=== PATIENT | female | born 1990 | race Caucasian/White ===

== ENCOUNTER 2016-06-19 03:56 | Emergency (ER) | payer BC ==
[~2016-06-19] VITALS: Ht 162.6 cm; Wt 112.0 kg
[~2016-06-19 03:56] MED LIST: ATV/1 PO; BCPILLS PO; LAMO150T32 PO; QUET1TAB32 PO; VALA500T39 PO; VNTHFA/IN INH
[2016-06-19 04:05] VITALS: TEMP 37.1; Ht 162.6 cm; Wt 112.0 kg
[2016-06-19] MEDS ORDERED: LITH600C PO (04:45)
[2016-06-19 04:51] LABS: BASO % 0.2 %; BASO ABS # 0.02 K/uL (0-0.2); COMPLETE YES; EOS % 2.2 %; HEMATOCRIT 37.2 % (37-47); IG% 0.3 %; LYMPH % 30.8 %; LYMPH ABS # 3.48 K/uL (1.2-3.4); MEAN CELL VOLUME 90.1 fL (80-100); MEAN CORPUSCULAR HEMOGLOBIN 30.8 pg (25-34); MEAN CORPUSCULAR HGB CONC 34.1 g/dl (32-36); MEAN PLATELET VOLUME 8.9 fL (7.4-10.4); MONO % 4.7 %; NEUT % 61.8 %; PLATELET COUNT 248 K/uL (130-400); RED BLOOD COUNT 4.13 M/uL (4.2-5.4); WHITE BLOOD COUNT 11.29 K/uL (4.8-10.8)
[2016-06-19 05:09] LABS: ALT/SGPT 19 U/L (12-78); AST/SGOT 9 U/L (15-37); BLOOD UREA NITROGEN 11 mg/dl (7-18); BUN/CREATININE RATIO 14.7 (10-20); CALCIUM 8.9 mg/dl (8.5-10.1); CARBON DIOXIDE 24 mmol/L (21-32); CHLORIDE 112 mmol/L (98-107); CREATININE 0.77 mg/dl (0.60-1.20); GLUCOSE 104 mg/dl (70-99); POTASSIUM 3.7 mmol/L (3.5-5.1); SODIUM 142 mmol/L (136-145)
[2016-06-19 05:12] LABS: ALKALINE PHOSPHATASE 61 U/L (45-117)
[2016-06-19 05:17] LABS: URINE APPEARANCE CLEAR (CLEAR); URINE BILIRUBIN NEG (NEG); URINE COLOR YELLOW; URINE EPITHELIAL CELL AUTO >30 /lpf (0-5); URINE NITRITE NEG (NEG); URINE SPECIFIC GRAVITY 1.006 (1.000-1.030); UROBILINOGEN NEG (NEG)
[2016-06-19 05:22] LABS: MANUAL MICROSCOPIC REQUIRED? NO; REVIEW REQ? NO
--- NOTE | 2016-06-19 05:51 | EMERGENCY ROOM VISIT NOTE ---
History Report prepared by Delroy: Vadim Haji Under the Supervision of: Dr. Jack Bee M.D. First contact with patient: 04:12 Chief Complaint: ABDOMINAL PAIN Stated Complaint: SEVERE ABDOMINAL PAIN Nursing Triage Summary: Bilateral lower abdominal pain for a few days, tonight 8/10 intense pain. Denies n/v/d History of Present Illness The patient is a 26 year old female who presents to the Emergency Room with complaints of persistent abdominal pain beginning about 2 days ago. She notes her pain woke her up about 20 minutes ago and was severe and stabbing. She describes her pain from the past 2 days ago pressure. She rates her pain an 8/ 10 in severity. She denies having any nausea, vomiting, diarrhea or vaginal spotting or discharge, but admits to some pain on urination. She notes that lying flat down worsens her pain. The patient reports that she still has her gallbladder and appendix. Her last known menstrual period was 8 days ago. She is on control and denies any chance of . She is on lithium and last had her levels checked 2 weeks ago. She is worried about a possible UTI, but denies any past history of UTI. Source of History: patient Onset: 2 days ago Position: abdomen Symptom Intensity: 8/10 in severity Quality: pressure, stabbing Timing: other (persistent) Modifying Factors (Worsening): other (lying flat down) Associated Symptoms: + urinary symptoms (pain on urination), No diarrhea, No nausea, No vomiting Note: The patient denies vaginal spotting or discharge. Review of Systems See HPI for pertinent positives & negatives. A total of 10 systems reviewed and were otherwise negative. Past Medical & Surgical Medical Problems: (1) Anxiety (2) Asthma Family History No significant family history Social History Smoking Status: Never Smoker Occupation Status: employed Current/Historical Medications Scheduled Control Pills ( Control Pills), 1 TAB PO DAILY [place] Carbonate ([place]a Carbonate), 1,800 MG PO DAILY Valacyclovir Hcl (Valtrex), 1,000 MG PO DAILY Scheduled PRN Lorazepam (Ativan), 1 MG PO Q6H PRN for Anxiety Allergies Coded Allergies: No Known Allergies (Unverified , 12/08/14) Physical Exam Vital Signs Date Time Temp Pulse Resp B/P Pulse Ox O2 Delivery O2 Flow Rate FiO2 06/19/16 06:53 88 16 117/54 98 06/19/16 06:04 75 20 118/62 98 Room Air 06/19/16 04:05 37.1 93 16 158/94 99 Room Air Physical Exam GENERAL: Patient is a healthy-appearing well-nourished HEAD: Normocephalic atraumatic EYES: Ocular movements intact pupils equal and react to light OROPHARYNX mucous membranes are moist no exudates present no erythema or edema present NECK: Supple no nuchal rigidity CHEST: Good equal expansion LUNGS: Clear and equal to auscultation CARDIAC: Normal S1 and S2 ABDOMEN: Soft; tender to the left lower quadrant; no guarding BACK: No CVA tenderness EXTREMITIES: No pain upon palpation normal muscle strength in all groups no clubbing cyanosis or edema NEURO: Patient is following commands is answering questions appropriately. Alert and oriented x3 Cranial Nerves 2-12 grossly intact Medical Decision & Procedures ER Provider Diagnostic Interpretation: US results as stated below per my review and radiologist interpretation: US PELVIC/ENDOVAG: test reported to be negative. Endometrial complex is normal measuring 4 mm. Blood flow seen to both ovaries, Complex 3.6 cm mass involving the left ovary has an appearance most suggestive of a hemorrhagic cyst at this time. Consider followup in 8 weeks to document stability. Small amount of anechoic free fluid in the pelvic cul-de-sac and right adnexa is nonspecific but could be due to prior cyst rupture or cyst leakage. No other abnormalities. Radiologist: Royal Martinez M.D. Laboratory Results 06/19/16 04:35 Red Blood Count 4.13, Mean Corpuscular Volume 90.1, Mean Corpuscular Hemoglobin 30.8, Mean Corpuscular Hemoglobin Concent 34.1, Mean Platelet Volume 8.9, Neutrophils (%) (Auto) 61.8, Lymphocytes (%) (Auto) 30.8, Monocytes (%) (Auto) 4.7, Eosinophils (%) (Auto) 2.2, Basophils (%) (Auto) 0.2, Neutrophils # (Auto) 6.98, Lymphocytes # (Auto) 3.48, Monocytes # (Auto) 0.53, Eosinophils # (Auto) 0.25, Basophils # (Auto) 0.02 06/19/16 04:35 Test 06/19/16 04:35 White Blood Count 11.29 K/uL (4.8-10.8) Red Blood Count 4.13 M/uL (4.2-5.4) Hemoglobin 12.7 g/dL (12.0-16.0) Hematocrit 37.2 % (37-47) Mean Corpuscular Volume 90.1 fL (80-100) Mean Corpuscular Hemoglobin 30.8 pg (25-34) Mean Corpuscular Hemoglobin Concent 34.1 g/dl (32-36) Platelet Count 248 K/uL (130-400) Mean Platelet Volume 8.9 fL (7.4-10.4) Neutrophils (%) (Auto) 61.8 % Lymphocytes (%) (Auto) 30.8 % Monocytes (%) (Auto) 4.7 % Eosinophils (%) (Auto) 2.2 % Basophils (%) (Auto) 0.2 % Neutrophils # (Auto) 6.98 K/uL (1.4-6.5) Lymphocytes # (Auto) 3.48 K/uL (1.2-3.4) Monocytes # (Auto) 0.53 K/uL (0.11-0.59) Eosinophils # (Auto) 0.25 K/uL (0-0.5) Basophils # (Auto) 0.02 K/uL (0-0.2) RDW Standard Deviation 43.8 fL (36.4-46.3) RDW Coefficient of Variation 13.2 % (11.5-14.5) Immature Granulocyte % (Auto) 0.3 % Immature Granulocyte # (Auto) 0.03 K/uL (0.00-0.02) Urine Color YELLOW Urine Appearance CLEAR (CLEAR) Urine pH 8.0 (4.5-7.5) Urine Specific [place] 1.006 (1.000-1.030) Urine Protein NEG (NEG) Urine Glucose (UA) NEG (NEG) Urine Ketones NEG (NEG) Urine Occult Blood NEG (NEG) Urine Nitrite NEG (NEG) Urine Bilirubin NEG (NEG) Urine Urobilinogen NEG (NEG) Urine Leukocyte Esterase TRACE (NEG) Urine WBC (Auto) 1-5 /hpf (0-5) Urine RBC (Auto) 0-4 /hpf (0-4) Urine Hyaline Casts (Auto) 0 /lpf (0-5) Urine Epithelial Cells (Auto) >30 /lpf (0-5) Urine Bacteria (Auto) NEG (NEG) Urine Test NEG (NEG) Anion Gap 6.0 mmol/L (3-11) Est Creatinine Clear Calc Drug Dose 135.7 ml/min Estimated GFR () 123.5 Estimated GFR (Non- 106.6 BUN/Creatinine Ratio 14.7 (10-20) Calcium Level 8.9 mg/dl (8.5-10.1) Total Bilirubin 0.2 mg/dl (0.2-1) Direct Bilirubin < 0.1 mg/dl (0-0.2) Aspartate Amino Transf (AST/SGOT) 9 U/L (15-37) Alanine Aminotransferase (ALT/SGPT) 19 U/L (12-78) Alkaline Phosphatase 61 U/L (45-117) Total Protein 6.5 gm/dl (6.4-8.2) Albumin 3.2 gm/dl (3.4-5.0) Lipase 113 U/L (73-393) [place] Level 1.1 mMOL/L (0.6-1.2) Labs reviewed by ED physician. ED Course 0452: Past medical records reviewed. The patient was evaluated in room B5. A complete history and physical examination was performed. 0640: Upon reexamination the patient is hemodynamically stable. I discussed results and treatment plan with the patient. She verbalizes agreement and understanding. The patient is ready for discharge. Medical Decision Differential diagnosis: Etiologies such as appendicitis, diverticulitis, PUD, biliary pathology, UTI, pancreatitis, obstruction, mesenteric ischemia, aortic pathology, infections, inflammatory bowel disease, renal colic, as well as others were entertained. This is a 26-year-old female who presents emergency Department with sudden sharp stabbing pain to the left lower quadrant. The patient has a negative test. Based on the patient's story I was suspicious of an ovarian cyst. This was confirmed on ultrasound. The patient does not have any evidence of infection in her urine. Serial abdominal examinations were performed on the patient in the emergency department and at no time did the patient exhibit a surgical abdomen. I felt that the patient was stable enough to be discharged home as her hemoglobin is normal. However I strongly cautioned her to return if she develops severe weakness or severe belly pain. Patient is going to follow-up with OB and was in agreement with treatment plan. Impression Primary Impression: Abdominal pain, left lower quadrant Additional Impression: Ruptured ovarian cyst Scribe Attestation The scribe's documentation has been prepared under my direction and personally reviewed by me in its entirety. I confirm that the note above accurately reflects all work, treatment, procedures, and medical decision making performed by me. Departure Information Dispostion Home / Self-Care Referrals Fariba Oliver DO (PCP) Patient Instructions ED Cyst Ovarian, My [facility] Additional Instructions Follow up with Dr Alvarez's office You have been examined and treated today on an emergency basis only. This is not a substitute for, or an effort to provide, complete comprehensive medical care. It is impossible to recognize and treat all injuries or illnesses in a single emergency department visit. It is therefore important that you follow up closely with DR Oliver. Call as soon as possible for an appointment. Thank you for your time and consideration. I look forward to speaking with you again soon. Please don't hesitate to call us if you have any questions. Problem Qualifiers
[2016-06-19 06:53] VITALS: BP 117/54; PULSE 88; O2SAT 98
--- NOTE | 2016-06-19 09:34 | DIAGNOSTIC IMAGING REPORT ---
ULTRASOUND OF THE PELVIS CLINICAL HISTORY: Right pelvic pain. COMPARISON STUDY: No priors. TECHNIQUE: Real-time, grayscale, and color flow sonography of the pelvis is performed both transabdominally and endovaginally. Images are reviewed in the transverse and longitudinal planes. FINDINGS: Uterus: The uterus is normal in size and echotexture, measuring 6.3 x 2.6 x 4.5 cm. A small Nabothian cyst is incidentally noted in the cervix. Endometrium: The endometrium is normal in appearance, and the endometrial stripe is normal in thickness measuring up to 0.4 cm. Ovaries: The ovaries are normal in size and morphology. The right ovary measures 3.5 x 2.6 x 1.9 cm and the left ovary measures 4.7 x 2.9 x 4.0 cm. There is a complex nonvascular cyst in the left ovary measuring up to 3.6 cm typical in appearance for a hemorrhagic cyst. Additional follicles are seen bilaterally. Normal Doppler waveforms are shown within both ovaries. Pelvis: There is a small volume of free fluid in the cul-de-sac. No concerning adnexal lesion is seen. IMPRESSION: 1. There is a 3.6 cm complex cyst in the left ovary typical in appearance for a hemorrhagic cyst. There is no sonographic evidence of ovarian torsion at the time of examination. 2. There is a small volume of free fluid in the cul-de-sac, likely within physiologic limits or potentially related to follicle/cyst rupture. Electronically signed by: Lobo Caro M.D. 06/19/2016 9:32 AM Dictated Date/Time: 06/19/2016 9:29 AM
== END 2016-06-19 06:54 | disposition home or self-care (01) ==
LOC: C.EDB 03:59
DX: R10.32 Left lower quadrant pain (principal); N83.209 Unspecified ovarian cyst, unspecified side; J45.909 Unspecified asthma, uncomplicated; F41.9 Anxiety disorder, unspecified

== ENCOUNTER 2023-12-24 15:24 | Observation (INO) ==
[2023-12-24 16:09] LABS: Basophils # (auto) 0.03 K/uL (0.00-0.20); Basophils % (auto) 0.2 %; Eosinophils # (auto) 0.01 K/uL (0.00-0.50); Eosinophils % (auto) 0.1 %; Hematocrit (blood only) 40.2 % (37.0-47.0); Hemoglobin 13.3 g/dl (12.0-16.0); Immature Granulocytes # (auto) 0.06 K/uL (0.01-0.20); Immature Granulocytes % (auto) 0.4 %; Lymphocytes % (auto) 12.3 %; Mean Corpuscular Hemoglobin 27.8 pg (25.0-34.0); Mean Corpuscular Hgb Conc 33.1 g/dL (32.0-36.0); Mean Corpuscular Volume 83.9 fL (80.0-100.0); Mean Platelet Volume 8.7 fL (9.4-12.4); Monocytes # (auto) 0.53 K/uL (0.11-0.59); Monocytes % (auto) 3.4 %; Neutrophils # (auto) 12.94 K/uL (1.40-6.50); Neutrophils % (auto) 83.6 %; Platelet Count 340 K/uL (130-400); RDW Coefficient of Variation 13.9 % (11.5-14.5); Red Blood Count 4.79 M/uL (4.20-5.40); White Blood Count 15.47 K/ul (4.8-10.8)
[2023-12-24 16:16] LABS: Appearance Urine Cloudy (Clear); Bacteria Urine Automated 1+ (None Seen); Bilirubin Urine Negative (Negative); Blood Urine Negative (Negative); Cast Urine Automated 0-2 /lpf (0-2); Color Urine Yellow; Glucose Urine UA Negative (Negative); Ketones Urine 1+ (Negative); Leukocyte Esterase Urine 2+ (Negative); Nitrite Urine Negative (Negative); Protein Urine Trace (Negative); RBC Urine Automated 0-2 /hpf (0-2); Specific Gravity Urine 1.023 (1.000-1.030); Urobilinogen Urine Negative (Negative); pH Urine 5.5 (4.5-7.5)
[2023-12-24 16:23] LABS: Pregnancy Test, Serum Negative (Negative)
[2023-12-24 16:25] LABS: Albumin Globulin Ratio 1.2 (0.9-2); Albumin Level 4.2 gm/dl (3.4-5.0); BUN Creatinine Ratio 14.1 (10-20); Bilirubin,Total 0.5 mg/dl (0.2-1.0); Calcium 9.8 mg/dl (8.6-10.3); Creatinine Clr Calc Pharmacy 141.1 ml/min; Est GFR (African American) 115.8 ml/min; Est GFR (Non-African American) 99.9 ml/min; Globulin 3.6 gm/dl (2.5-4.0); Potassium 3.8 mmol/L (3.5-5.1); Total Protein 7.8 gm/dl (6.0-8.3)
[2023-12-24] MEDS: SODIUM CHLORIDE 0.9% 1,000 ML IV ONE (16:34)
[2023-12-24] MEDS: ONDANSETRON INJ 2 MG/ML 2 ML VIAL IV STA (16:34)
--- NOTE | 2023-12-24 17:16 | XRay Report ---
XR abdomen 2V w PA chest HISTORY: 33 years-old Female vomitting acute chest and abdominal pain COMPARISON: 12/23/2023 TECHNIQUE: PA view of the chest with erect and supine views of the abdomen FINDINGS: Cardiomediastinal and hilar silhouettes are within normal limits. No pneumothorax, pleural effusion o r airspace consolidation. Bones appear grossly intact. Nonobstructive bowel gas pattern without pneum operitoneum. Renal shadows are partially obscured by bowel gas. IMPRESSION: 1. No acute processes of the chest. 2. Nonobstructive bowel gas pattern without pneumoperitoneum. ACT 112: Negative or not required by law. The above report was generated using voice recognition software. It may contain grammatical, syntax o r spelling errors. Electronically signed by: Emerson Diane M.D. 12/24/2023 5:14 PM
[2023-12-24] MEDS: KETOROLAC TROMETHAMINE 15 MG/ML VIAL IV STA (17:28)
[2023-12-24] MEDS: METOCLOPRAMIDE HCL INJ 5 MG/ML 2 ML VIAL IV ONE (17:29)
[2023-12-24] MEDS: diphenhydrAMINE 50 MG/ML VIAL IV STA (17:29)
[2023-12-24] MEDS ORDERED: ALUMINUM/MAGNESIUM/SIMETH (MAALOX MAX) 30 ML UDC PO PRN (19:13)
--- NOTE | 2023-12-24 19:13 | History & Physical Report ---
Date of Service December 24, 2023 Assessment & Plan (1) Intractable nausea and vomiting: (2) Epigastric abdominal pain: (3) UTI (urinary tract infection): (4) Diabetes mellitus, type 2: (5) Elevated blood pressure reading: (6) Tobacco abuse: (7) Morbid obesity: (8) ALEX on CPAP: (9) Adrenal nodule: Plan 33-year-old female with history of morbid obesity, ALEX CPAP, diabetes mellitus type 2 on metformin, psoriasis, tobacco abuse, medical marijuana use who presented to ED with intractable nausea, vomiting and upper abdominal pain. Chest Abd xray- 1. No acute processes of the chest. 2. Nonobstructive bowel gas pattern without pneumoperitoneum. CT A/P 1. No bowel wall thickening or obstruction. 2. Normal appendix. 3. No hydronephrosis. 4. A 3.3 cm indeterminate right adrenal gland nodule. Follow-up nonemergent dedicated adrenal CT is recommended for further evaluation. RUQ US 1. Normal gallbladder. No gallstones 2. Hepatic steatosis. Intractable nausea and vomiting with upper epigastric pain/burning- concerning for acid peptic disease. Lipase negative. LFTs negative. CT abdomen pelvis yesterday along with with RUQ US was negative for acute pathology. Has heartburns requiring frequent medications. Prior EGD few years back only with some inflammation per patient. She failed po trial in ED and hence requires observation for supportive treatment. Check UDS. Will start on IVF, IV PPI bid, sucralfate, tums prn, iv zofran prn, clear liquid diet with plan to advance diet as tolerated. If still persistent symptoms, will need to consult GI for EGD. She states she is trying to change all her providers from [facility] to [facility]. UTI- Will start on rocephine pending clx results. DM-2- on metformin. Will hold. SSI prn. Was on ozempic but discontinued due to side effects. Elevated BP- no h/o HTN. Likely situational. Monitor. HLZ prn Tobacco abuse- smokes 1 ppd. Recommended quitting. Continue nicoderm patch Morbid obesity- DMI 51.4. States she continues to lose weight even after discontinuing ozempic. Will need to follow up with PCP/GI for further eval ALEX on CPAP at 13 cm H2O- will bring CPAP from home Adrenal nodule- incidental finding in CT. Follow up with PCP/endo as OP for further work up DVT ppx- sc lovenox Dispo- Observation on tele Time spent- 75 mins Updated at bedside History of Present Illness Chief Complaint: intractable N/V Primary Care Provider: Wu Gomez MD 33-year-old female with history of morbid obesity, ALEX CPAP, diabetes mellitus type 2 on metformin, psoriasis, tobacco abuse, medical marijuana use who presented to ED with intractable nausea, vomiting and upper abdominal pain. 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 Shortly after waking up evening, she starting nausea and vomiting and was unable to tolerate anything down. It persisted and she came to the ED yesterday where workup including CT abdomen pelvis, right upper ultrasound, labs are unremarkable and she was discharged home, however she continues to have intractable nausea vomiting and unable to keep things down fluids and she presented back to the ED. in ED, she was given IV fluids, Zofran, Reglan, Toradol, Benadryl, However she failed p.o. challenge and hospitalist service was consulted for admission. during my encounter, states she was sitting comfortably in bed. Still nauseous. She states she has been having about daily vomiting about once per day for the past 5 weeks or so. She would also have heartburn and would require Tums and other [id number] medications on top of her PPI. she was on Ozempic for few weeks for diabetes and weight loss but she continues to have the symptoms along with weight loss despite stopping Ozempic in early October. She continues to smoke 1 pack/day. S he does not drink alcohol. She uses medical marijuana to help her sleep but denies any other drug abuse. States she had seen GI in the past and had EGD few years back with EGD which just showed mild inflammation nothing else. She denies fever chills, chest pain or shortness of breath dysuria. She alternates between constipation and diarrhea. She does however say that she had N/V few months back requiring ED presentation, she was given antibiotics for possible UTI and her symptoms were good for quite sometime. She is asking if her can bring her home CPAP. was at bedside. Allergies Allergy/AdvReac Type Severity Reaction Status Date / Time No Known Allergies Allergy Verified 12/24/23 18:35 Home Medications Medication Instructions Recorded Confirmed Type aripiprazole 10 mg tablet (Abilify) 10 mg PO QPM 01/15/21 01/23/21 History drospirenone 3 mg-ethinyl 1 tab PO QPM 01/15/21 01/23/21 History estradiol 0.03 mg tablet (Marina (28)) duloxetine 20 mg capsule,delayed 20 mg PO QAM 01/15/21 01/23/21 History release (Cymbalta) lamotrigine 200 mg tablet 200 mg PO QPM 01/15/21 01/23/21 History (Lamictal) metformin 1,000 mg tablet 1,000 mg PO BID 01/15/21 01/23/21 History pantoprazole 40 mg tablet,delayed 40 mg PO QAM 01/15/21 01/23/21 History release (Protonix) valacyclovir 500 mg tablet 500 mg PO QAM 01/15/21 12/24/23 History pantoprazole 40 mg tablet,delayed 40 mg PO DAILY 4 weeks #30 tabs 12/23/23 Rx release (Protonix) promethazine 25 mg tablet 25 mg PO Q6H PRN sedation #20 tabs 12/23/23 Rx bupropion HCl 200 mg tablet,12 hr 200 mg PO QAM 12/24/23 12/24/23 History sustained-release Past Med/Surg History Problem List (Updated 12/24/23 @ 19:25 by Harshad Loza MD) Elevated blood pressure reading ALEX on CPAP Morbid obesity Tobacco abuse Intractable nausea and vomiting Adrenal nodule (Acute) Nausea and vomiting (Acute) Epigastric abdominal pain (Acute) Encounter for pre-operative examination Dyspnea (Acute) Asthma (Chronic) Anxiety (Chronic) Medical History Morbid obesity with BMI of 50.0-59.9, adult PCOS (polycystic ovarian syndrome) Generalized psoriasis Diabetes mellitus, type 2 NIDDM Sleep apnea cpap Surgical History History of tooth extraction History of wisdom tooth extraction Family History Other No family history of adverse response to anesthesia Social History Smoking Status: Current every day smoker Cigarettes Per Day: 20 a day; Second Hand Exposure: No; Do You Dip or Chew Tobacco: No; Hx Alcohol Use: No Hx Substance Use: No Preferred Language: British Communication Ability: Effective Pattern Worker Required: No Beliefs That Will Affect Care: None Current Living Situation: Spouse Feels Safe at Home: Yes Assistive Devices: CPAP and Glasses Review of Systems Review of Systems: All systems reviewed & are unremarkable except as noted in Subjective Physical Exam Physical Exam: General: Morbidly obese female, sitting comfortably in bed, not in distress, on room air HEENT: EOMI, FADIA, MMM Chest: Clear breath sounds bilaterally, no wheezes or crackles CVS: Regular rate and rhythm, normal heart sounds, no murmur Abdomen: Soft, non tender, not distended, normal bowel sounds Neuro: Awake, alert, oriented, conversing well, non focal Extremities: No cyanosis, clubbing or edema Results & Data Results & Data Vital Signs (Past 12 Hours) Vital Signs Temp Pulse Pulse Resp BP BP Pulse Ox 12/24/23 17:30 67 20 176/109 H 97 12/24/23 15:38 36.9 C 75 16 165/82 H 97 O2 Del Method 12/24/23 17:30 Room Air 12/24/23 15:38 Room Air Laboratory Results Short CBC 12/24/23 Range/Units 15:50 WBC 15.47 H (4.8-10.8) K/ul Hgb 13.3 (12.0-16.0) g/dl Hct 40.2 (37.0-47.0) % Plt Count 340 (130-400) K/uL BMP 12/24/23 15:50 Sodium 138 Potassium 3.8 Chloride 104 Carbon Dioxide 24 BUN 11 Creatinine 0.78 Glucose 113 H Calcium 9.8 Liver Function 12/24/23 Range/Units 15:50 Total Bilirubin 0.5 (0.2-1.0) mg/dl AST 30 (13-39) U/L ALT 58 H (7-52) U/L Alkaline Phosphatase 59 (34-104) U/L Albumin 4.2 (3.4-5.0) gm/dl Urine 12/24/23 Range/Units 15:54 Urine Color Yellow Urine Appearance Cloudy A (Clear) Urine pH 5.5 (4.5-7.5) Ur Specific [place] 1.023 (1.000-1.030) Urine Protein Trace H (Negative) Urine Glucose (UA) Negative (Negative) Diagnostic Findings Chest/Abdomen X-ray 12/24/23 16:43 XR abdomen 2V w PA chest HISTORY: 33 years-old Female vomitting acute chest and abdominal pain COMPARISON: 12/23/2023 TECHNIQUE: PA view of the chest with erect and supine views of the abdomen FINDINGS: Cardiomediastinal and hilar silhouettes are within normal limits. No pneumothorax, pleural effusion or airspace consolidation. Bones appear grossly intact. Nonobstructive bowel gas pattern without pneumoperitoneum. Renal shadows are partially obscured by bowel gas. IMPRESSION: 1. No acute processes of the chest. 2. Nonobstructive bowel gas pattern without pneumoperitoneum. ACT 112: Negative or not required by law. The above report was generated using voice recognition software. It may contain grammatical, syntax or spelling errors. Electronically signed by: Emerson Diane M.D. 12/24/2023 5:14 PM (3) UTI (urinary tract infection) Hematuria presence: without hematuria Urinary tract infection type: acute cystitis Qualified Code(s): N30.00 - Acute cystitis without hematuria
[2023-12-24] MEDS: cefTRIAXone SODIUM 2,000 MG/50 ML BAG IV ONE (19:32)
[2023-12-24] MEDS: SUCRALFATE 1 GM/10 ML UDC PO SCH (20:15)
[2023-12-24] MEDS: NICOTINE 21 MG/24 HR TDSY TD SCH (20:15)
[2023-12-24] MEDS ORDERED: ACETAMINOPHEN 325 MG TAB PO PRN ×2 (21:25→21:27)
[2023-12-24] MEDS ORDERED: traMADol HCL 50 MG TABLET PO PRN (21:26)
[2023-12-24] MEDS ORDERED: CARBOHYDRATES FOR HYPOGLYCEMIA PO PRN (21:27)
[2023-12-24] MEDS ORDERED: GLUCAGON FOR INJ 1 MG VIAL SQ PRN (21:27)
[2023-12-24] MEDS ORDERED: DEXTROSE 50% 50 ML SYRINGE IV PRN (21:27)
[2023-12-24] MEDS ORDERED: GLUCOSE 40% GEL 15 GM TUBE PO PRN (21:27)
[2023-12-24] MEDS ORDERED: GLUCOSE 10 TAB/TUBE PO PRN (21:27)
--- NOTE | 2023-12-24 22:06 | Emergency Department Note ---
History of Present Illness General Chief complaint: Illness Stated complaint: SEVERE NAUSEA, VOMITING, ABD PAIN Time Seen by Provider: 12/24/23 16:12 History of Present Illness Provider Complaint: + nausea, + vomiting and + abdominal pain Onset (ago): day(s) 2 Description of Vomiting: no bilious, no blood-streaked, no bloody or no coffee grounds Associated Abdominal Pain: Yes Location of pain: + diffuse Maximum Pain Intensity: 7 Current Pain Intensity: 7 Quality: + cramping, + stabbing and + sharp Pain Consistency: + intermittent Relieved By: + none Exacerbated By: + none Context: no foreign travel, no recent antibiotic use, no alcohol abuse, no trauma, no anticoagulant use, no NSAID use, no smoking or no marijuana use Associated symptoms: + weakness; no chest pain, no cough, no fever/chills, no headaches, no rash, no shortness of breath, no numbness or no palpitation Home Medications Medication Instructions Recorded Confirmed Type lamotrigine 200 mg tablet 200 mg PO FORMERLY [facility], [facility]–1983 01/15/21 12/24/23 History (Lamictal) metformin 1,000 mg tablet 1,000 mg PO FORMERLY [facility], [facility]–1983 01/15/21 12/24/23 History valacyclovir 500 mg tablet 500 mg PO FORMERLY [facility], [facility]–1983 01/15/21 12/24/23 History promethazine 25 mg tablet 25 mg PO Q6H PRN sedation #20 tabs 12/23/23 12/24/23 Rx bupropion HCl 200 mg tablet,12 hr 200 mg PO QAM 12/24/23 12/24/23 History sustained-release cyanocobalamin (vitamin B-12) 1,000 mcg PO M 12/24/23 12/24/23 History 1,000 mcg tablet (Vitamin B-12) drospirenone 3 mg-ethinyl 1 tab PO QAM 12/24/23 12/24/23 History estradiol 0.03 mg tablet pantoprazole 40 mg tablet,delayed 40 mg PO QAM 12/24/23 12/24/23 History release (Protonix) Allergies Allergy/AdvReac Type Severity Reaction Status Date / Time No Known Allergies Allergy Verified 12/24/23 18:35 Past Med/Surg History Problem List (Updated 12/24/23 @ 22:05 by Gerson Abraham MD) Elevated blood pressure reading ALEX on CPAP Morbid obesity Tobacco abuse Intractable nausea and vomiting (Acute) Adrenal nodule (Acute) Nausea and vomiting (Acute) Epigastric abdominal pain (Acute) Encounter for pre-operative examination Dyspnea (Acute) Asthma (Chronic) Anxiety (Chronic) Medical History Morbid obesity with BMI of 50.0-59.9, adult PCOS (polycystic ovarian syndrome) Generalized psoriasis Diabetes mellitus, type 2 NIDDM Sleep apnea cpap Surgical History History of tooth extraction History of wisdom tooth extraction Family History Other No family history of adverse response to anesthesia Social History Smoking Status: Current every day smoker Cigarettes Per Day: 20 a day; Second Hand Exposure: No; Do You Dip or Chew Tobacco: No; Hx Alcohol Use: No Hx Substance Use: No Preferred Language: Paraguayan Communication Ability: Effective Acid Painter Required: No Beliefs That Will Affect Care: None Current Living Situation: Spouse Feels Safe at Home: Yes Assistive Devices: CPAP and Glasses Physical Exam 2 Vital Signs: Vital Signs - 24 hr 12/24/23 15:38 12/24/23 17:30 Temperature 36.9 C Temperature Source Temporal Artery Sc an Pulse Rate 75 Pulse Rate [Finger ] 67 Respiratory Rate 16 20 Respiratory Effort / Characteristics Non-Labored Sponta neous Non-Labored Sponta neous Respiratory Depth Normal Normal Respiratory Patter n Regular Blood Pressure 165/82 H Blood Pressure [Ri ght Arm] 176/109 H Blood Pressure Elen n 109 Blood Pressure Elen n [Right Arm] 131 Pulse Oximetry 97 97 Oxygen Delivery Me thod Room Air Room Air Sepsis Recent Feve r Within 48 Hours No Sepsis New/Unexpla ined Change in Men jose Status No Sepsis Action Take n by Nursing No Action Required Physical Exam: Physical Exam GENERAL: She is oriented to person, place, and time. She appears well-developed and well-nourished. She does not appear distressed. HENT: Exam performed. -Head: Normocephalic and atraumatic. -Right Ear: External ear normal. No mastoid erythema -Left Ear: External ear normal. No mastoid erythema -Mouth/Throat: The oropharynx is clear and moist. No trismus in the jaw. No dental abscesses or uvula swelling. No oropharyngeal exudate or tonsillar abscesses. EYES: Conjunctivae and EOM are normal.Right eye exhibits no discharge. Left eye exhibits no discharge. No scleral icterus. NECK: Normal range of motion. Neck supple. No JVD present. No tracheal deviation and normal range of motion present. CV: Normal rate, regular rhythm, normal heart sounds and intact distal pulses. There is no peripheral edema. Palpable radial pulses bue. PULM/CHEST: Effort normal and breath sounds normal. No respiratory distress. No stridor. She has no wheezes. She has no rales. -Chest Wall: She exhibits no tenderness. ABD: The abdomen is soft and obese. Bowel sounds are normal. She has no distension. No mass is present. There is diffuse tenderness to palpation. There is no rebound, no guarding, no Burr's sign MUSC/SKEL: Normal range of motion. There is no peripheral edema, tenderness or deformity. NEURO: Motor and sensation grossly intact. SKIN: Skin is warm and dry. She is not diaphoretic. PSYCH: She has a normal mood and affect. Behavior is normal. Judgment and thought content normal. Course Course 1611: The patient was evaluated in room D1A. A complete history and physical exam was performed Cardiac monitoring: An order was placed for continuous cardiac monitoring. The monitor shows a rate of 60 with sinus rhythm interpreted by ga 1820: Vital signs stable. Labs and imaging within normal limits with the exception of mild leukocytosis of 15.4, improved from white blood cell count of 17 yesterday. Despite multiple rounds of antiemetics patient is still reporting nausea and failed p.o. challenge. [facility]. Administered Medications Nicotine (Nicotine 21 Mg/24 Hr Tdsy) 1 patch TD QAM [facility] Stop: 01/24/24 08:59 Last Admin: 12/24/23 20:15 Dose: 1 patch Documented By: SHERRIE Sucralfate (Sucralfate 1 Gm/10 Ml Udc) 1 gm PO QID ALYSA Stop: 01/23/24 20:59 Last Admin: 12/24/23 20:15 Dose: 1 gm Documented By: SHERRIE Discontinued Medications Diphenhydramine HCl (Diphenhydramine 50 Mg/Ml Vial) 25 mg IV NOW STA Stop: 12/24/23 16:51 Last Admin: 12/24/23 17:29 Dose: 25 mg Documented By: YANA Sodium Chloride (Nss) 1,000 mls @ 999 mls/hr IV .Q1H1M ONE Stop: 12/24/23 17:26 Last Infusion: 12/24/23 17:30 Dose: Infused Documented By: Admin: 12/24/23 16:34 Dose: 999 mls/hr Documented By: YANA Ceftriaxone Sodium (Rocephin) 2,000 mg in 50 mls @ 100 mls/hr IV NOW ONE Stop: 12/24/23 19:59 Last Infusion: 12/24/23 21:05 Dose: Infused Documented By: Admin: 12/24/23 19:32 Dose: 100 mls/hr Documented By: BUCKY Ketorolac Tromethamine (Ketorolac Tromethamine 15 Mg/Ml Vial) 15 mg IV NOW STA Stop: 12/24/23 16:51 Last Admin: 12/24/23 17:28 Dose: 15 mg Documented By: YANA Metoclopramide HCl (Metoclopramide Hcl Inj 5 Mg/Ml 2 Ml Vial) 5 mg IV ONE ONE Stop: 12/24/23 16:51 Last Admin: 12/24/23 17:29 Dose: 5 mg Documented By: YANA Ondansetron HCl (Ondansetron Inj 2 Mg/Ml 2 Ml Vial) 4 mg IV NOW STA Stop: 12/24/23 16:27 Last Admin: 12/24/23 16:34 Dose: 4 mg Documented By: YANA Medical Decision Making Medical Records Attestation: I reviewed the patient's medical records. External medical records reviewed. Patient was seen in the emergency department yesterday and had a negative workup including a negative ultrasound of the right upper quadrant as well as CT of the abdomen pelvis. Laboratory Data Attestation: I reviewed the patient's lab results. 12/24/23 15:50 12/24/23 15:50 Lab Results 12/24/23 12/24/23 Range/Units 15:50 15:54 WBC 15.47 H (4.8-10.8) K/ul RBC 4.79 (4.20-5.40) M/uL Hgb 13.3 (12.0-16.0) g/dl Hct 40.2 (37.0-47.0) % MCV 83.9 (80.0-100.0) fL MCH 27.8 (25.0-34.0) pg MCHC 33.1 (32.0-36.0) g/dL RDW Std Deviation 42.0 (36.4-46.3) fL RDW Coeff of Tay 13.9 (11.5-14.5) % Plt Count 340 (130-400) K/uL MPV 8.7 L (9.4-12.4) fL Immature Gran % (Auto) 0.4 % Neut % (Auto) 83.6 % Lymph % (Auto) 12.3 % Hawkins % (Auto) 3.4 % Eos % (Auto) 0.1 % Baso % (Auto) 0.2 % Neut # (Auto) 12.94 H (1.40-6.50) K/uL Lymph # (Auto) 1.90 (1.20-3.40) K/uL Hawkins # (Auto) 0.53 (0.11-0.59) K/uL Eos # (Auto) 0.01 (0.00-0.50) K/uL Baso # (Auto) 0.03 (0.00-0.20) K/uL Immature Gran # (Auto) 0.06 (0.01-0.20) K/uL Sodium 138 (136-145) mmol/L Potassium 3.8 (3.5-5.1) mmol/L Chloride 104 (98-107) mmol/L Carbon Dioxide 24 (21-32) mmol/L Anion Gap 10 (3-11) BUN 11 (6-23) mg/dl Creatinine 0.78 (0.6-1.2) mg/dl Est Cr Clr Drug Dosing 141.1 ml/min Est GFR ( Amer) 115.8 ml/min Est GFR (Non-Af Amer) 99.9 ml/min BUN/Creatinine Ratio 14.1 (10-20) Glucose 113 H (70-99(Fasting)) mg/dl Calcium 9.8 (8.6-10.3) mg/dl Total Bilirubin 0.5 (0.2-1.0) mg/dl AST 30 (13-39) U/L ALT 58 H (7-52) U/L Alkaline Phosphatase 59 (34-104) U/L Total Protein 7.8 (6.0-8.3) gm/dl Albumin 4.2 (3.4-5.0) gm/dl Globulin 3.6 (2.5-4.0) gm/dl Albumin/Globulin Ratio 1.2 (0.9-2) Lipase 9 L (11-82) U/L HCG, Qual Negative (Negative) Urine Color Yellow Urine Appearance Cloudy A (Clear) Urine pH 5.5 (4.5-7.5) Ur Specific Riva 1.023 (1.000-1.030) Urine Protein Trace H (Negative) Urine Glucose (UA) Negative (Negative) Urine Ketones 1+ H (Negative) Urine Blood Negative (Negative) Urine Nitrite Negative (Negative) Urine Bilirubin Negative (Negative) Urine Urobilinogen Negative (Negative) Ur Leukocyte Esterase 2+ H (Negative) Urine WBC (Auto) 6-10 H (0-5) /hpf Urine RBC (Auto) 0-2 (0-2) /hpf U Hyaline Cast (Auto) 0-2 (0-2) /lpf U Epithel Cells (Auto) 6-10 H (0-2) /hpf Urine Bacteria (Auto) 1+ H (None Seen) ECG Data Attestation: I personally reviewed and interpreted this ECG as follows: Indication: abdominal pain Rate (beats per minute): 74 Rhythm: normal sinus Findings: no ST depression, no ST elevation or no prolonged QT Additional Comments: QRS 76 MDM Narrative 1612: The patient was evaluated in room D1A. A complete history and physical exam was performed Cardiac monitoring: An order was placed for continuous cardiac monitoring. The monitor shows a rate of 60 with sinus rhythm interpreted by me 1820: Vital signs stable. Labs and imaging within normal limits with the exception of mild leukocytosis of 15.4, improved from white blood cell count of 17 yesterday. Despite multiple rounds of antiemetics patient is still reporting nausea and failed p.o. challenge. [facility]. Impression & Plan Intractable nausea and vomiting Discharge Plan Visit Data Chief Complaint: Illness Stated Complaint: SEVERE NAUSEA, VOMITING, ABD PAIN ED Provider: Gerson Abraham Discharge Problem: Intractable nausea and vomiting Patient Disposition: Admitted As Inpatient Discharge Instructions Interventions: ED Discharge Assessment Last Done: 12/24/23 21:28
[2023-12-24] MEDS: PANTOprazole 40 MG in SYRINGE 0 ML IV SCH (22:09)
[2023-12-24] MEDS: ACETAMINOPHEN 1,000 MG/100 ML VIAL IV STA (22:09)
[2023-12-24] MEDS: SODIUM CHLORIDE 0.9% 1,000 ML IV SCH (22:11)
[2023-12-24] MEDS: ONDANSETRON INJ 2 MG/ML 2 ML VIAL IV PRN (23:14)
[2023-12-24] MEDS: PROMETHAZINE HCL 12.5 MG in SODIUM CHLORIDE 0.9% 50 ML IV PRN (23:30)
[2023-12-25 00:19] LABS: Amphetamines+Metham, Urine Neg (Neg); Barbiturates, Urine Neg (Neg); Benzodiazepine, Urine Neg (Neg); Cocaine, Urine Neg (Neg); Fentanyl, Urine Neg (Neg); MDMA (Ecstacy), Urine Pos (Neg); Marijuana, Urine Pos (Neg); Methadone, Urine Neg (Neg); Opiate, Urine Pos (Neg); Phencyclidine, Urine Neg (Neg)
[2023-12-25] MEDS: METOCLOPRAMIDE HCL INJ 5 MG/ML 2 ML VIAL IV STA (03:53)
[2023-12-25 05:25] LABS: Hemoglobin 12.6 g/dl (12.0-16.0); Mean Corpuscular Hemoglobin 28.3 pg (25.0-34.0); Mean Corpuscular Hgb Conc 33.2 g/dL (32.0-36.0); Mean Corpuscular Volume 85.2 fL (80.0-100.0); Mean Platelet Volume 8.8 fL (9.4-12.4); Platelet Count 294 K/uL (130-400); RDW Coefficient of Variation 13.8 % (11.5-14.5); RDW Standard Deviation 42.5 fL (36.4-46.3); Red Blood Count 4.46 M/uL (4.20-5.40); White Blood Count 12.91 K/ul (4.8-10.8)
[2023-12-25 05:40] LABS: Albumin Globulin Ratio 1.2 (0.9-2); Albumin Level 3.8 gm/dl (3.4-5.0); BUN Creatinine Ratio 12.3 (10-20); Bilirubin,Total 0.5 mg/dl (0.2-1.0); Calcium 9.2 mg/dl (8.6-10.3); Creatinine Clr Calc Pharmacy 169.3 ml/min; Est GFR (African American) 135.2 ml/min; Est GFR (Non-African American) 116.7 ml/min; Globulin 3.1 gm/dl (2.5-4.0); Magnesium 1.9 mg/dl (1.7-2.4); Phosphorus 3.6 mg/dl (2.5-4.9); Potassium 3.7 mmol/L (3.5-5.1); Total Protein 6.9 gm/dl (6.0-8.3)
[2023-12-25] MEDS: SUCRALFATE 1 GM TAB ONE (08:38)
[2023-12-25] MEDS: lamoTRIgine 100 MG TAB PO SCH (08:42)
[2023-12-25] MEDS: buPROPion SR 100 MG TABCR PO SCH (08:42)
[2023-12-25] MEDS: ENOXAPARIN INJ 40 MG/0.4 ML SYR SQ SCH (08:43)
--- NOTE | 2023-12-25 12:49 | Discharge Summary ---
Date of Service December 25, 2023 Admission HPI Per Admitting Provider 33-year-old female with history of morbid obesity, ALEX CPAP, diabetes mellitus type 2 on metformin, psoriasis, tobacco abuse, medical marijuana use who presented to ED with intractable nausea, vomiting and upper abdominal pain. 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 Shortly after waking up evening, she starting nausea and vomiting and was unable to tolerate anything down. It persisted and she came to the ED yesterday where workup including CT abdomen pelvis, right upper ultrasound, labs are unremarkable and she was discharged home, however she continues to have intractable nausea vomiting and unable to keep things down fluids and she presented back to the ED. in ED, she was given IV fluids, Zofran, Reglan, Toradol, Benadryl, However she failed p.o. challenge and hospitalist service was consulted for admission. during my encounter, states she was sitting comfortably in bed. Still nauseous. She states she has been having about daily vomiting about once per day for the past 5 weeks or so. She would also have heartburn and would require Tums and other [id number] medications on top of her PPI. she was on Ozempic for few weeks for diabetes and weight loss but she continues to have the symptoms along with weight loss despite stopping Ozempic in early October. She continues to smoke 1 pack/day. She does not drink alcohol. She uses medical marijuana to help her sleep but denies any other drug abuse. States she had seen GI in the past and had EGD few years back with EGD which just showed mild inflammation nothing else. She denies fever chills, chest pain or shortness of breath dysuria. She alternates between constipation and diarrhea. She does however say that she had N/V few months back requiring ED presentation, she was given antibiotics for possible UTI and her symptoms were good for quite sometime. She is asking if her can bring her home CPAP. was at bedside. 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 peptic disease UTI Discharge Exam General: Morbidly obese female, sitting comfortably in bed, not in distress, on room air HEENT: EOMI, FADIA, MMM Chest: Clear breath sounds bilaterally, no wheezes or crackles CVS: Regular rate and rhythm, normal heart sounds, no murmur Abdomen: Soft, non tender, not distended, normal bowel sounds Neuro: Awake, alert, oriented, conversing well, non focal Extremities: No cyanosis, clubbing or edema Discharge Data Allergies Allergy/AdvReac Type Severity Reaction Status Date / Time No Known Allergies Allergy Verified 12/24/23 18:35 Consultations 12/24/23 18:22 ED Decision to Admit Stat Hospital Course (1) Intractable nausea and vomiting: (2) Epigastric abdominal pain: (3) UTI (urinary tract infection): (4) Diabetes mellitus, type 2: (5) Elevated blood pressure reading: (6) Tobacco abuse: (7) Morbid obesity: (8) ALEX on CPAP: (9) Adrenal nodule: Plan Per prior attending with addendum: 33-year-old female with history of morbid obesity, ALEX CPAP, diabetes mellitus type 2 on metformin, psoriasis, tobacco abuse, medical marijuana use who presented to ED with intractable nausea, vomiting and upper abdominal pain. Chest Abd xray- 1. No acute processes of the chest. 2. Nonobstructive bowel gas pattern without pneumoperitoneum. CT A/P 1. No bowel wall thickening or obstruction. 2. Normal appendix. 3. No hydronephrosis. 4. A 3.3 cm indeterminate right adrenal gland nodule. Follow-up nonemergent dedicated adrenal CT is recommended for further evaluation. RUQ US 1. Normal gallbladder. No gallstones 2. Hepatic steatosis. Intractable nausea and vomiting with upper epigastric pain/burning- concerning for acid peptic disease. Lipase negative. LFTs negative. CT abdomen pelvis yesterday along with with RUQ US was negative for acute pathology. Has heartburns requiring frequent medications. Prior EGD few years back only with some inflammation per patient. She failed po trial in ED and hence requires observation for supportive treatment. Check UDS. Will start on IVF, IV PPI bid, sucralfate, tums prn, iv zofran prn, clear liquid diet with plan to advance diet as tolerated. If still persistent symptoms, will need to consult GI for EGD. She states she is trying to change all her providers from [facility] to [facility]. UTI- Will start on rocephine pending clx results. DM-2- on metformin. Will hold. SSI prn. Was on ozempic but discontinued due to side effects. Elevated BP- no h/o HTN. Likely situational. Monitor. HLZ prn Tobacco abuse- smokes 1 ppd. Recommended quitting. Continue nicoderm patch Morbid obesity- DMI 51.4. States she continues to lose weight even after discontinuing ozempic. Will need to follow up with PCP/GI for further eval ALEX on CPAP at 13 cm H2O- will bring CPAP from home Adrenal nodule- incidental finding in CT. Follow up with PCP/endo as OP for further work up DVT ppx- sc lovenox Dispo- Observation on tele Time spent- 75 mins Updated at bedside Addendum 12/25/2023: Patient was seen and examined at bedside as a follow-up of intractable nausea and vomiting. Patient reports improvement in her nausea and vomiting and is hungry and ready to have appetite. Patient denies any recent febrile illness or or headache or chest pain or palpitation. Patient made aware that she needs to follow-up with GI upon discharge and she will be put on antibiotic for UTI treatment. Patient was also counseled on decreasing marijuana use to help with weight loss and nausea and vomiting. She voiced understanding and was agreeable. She is hemodynamically stable and reports feeling better and would like to go home. She is being discharged with following instruction at the point of discharge: Follow-up with your primary care physician within a week time and likely you will need labs CBC/CMP/magnesium/phosphorus. Your symptoms were more consistent with acid peptic disease, you will be discharged on Protonix twice a day, take the medication about half an hour prior to major meals (in an empty stomach) for optimal action. You will need GI follow-up and possible EGD as an outpatient. Coordinate with your PCP office to set up the referral. Your blood pressure were on the higher side while in hospital, continue to measure your blood pressure twice a day and maintain a log to take to your primary care physician to rule out any situational hypertension and possible management of your blood pressure in the long-term. Take your medications as prescribed. Please make sure that you are able to get your medications today by calling your pharmacy before you leave the hospital so that your treatment continuity is not broken. Home Health Attestation I certify that this patient is under my care and that I, or a physicians health information assistant working with me, had a face to-face encounter that meets the home health aatk-ej-epqy encounter requirements with this patient. The encounter with the patient was in whole, or in part, for the following medical condition, which is the primary reason for home health care (list medical condition): I certify that, based on my findings, the following services are medically necessary home health services: My clinical findings support the need for the above services because: Further, I certify that my clinical findings support that this patient is homebound (i.e. absences from home require considerable and taxing effort and are for medical reasons or oriental orthodox services or infrequently or of short duration when for other reasons) because: Certification for Home Health Services: Based on the above findings, I certify that this patient is confined to the home and needs intermittent snf care, physical therapy and/or speech therapy or continues to need occupational therapy. The patient is under my care, and I have initiated the establishment of the plan of care. This patient will be followed by a physician who will periodically review the plan of care. 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 Your symptoms were more consistent with acid peptic disease, you will be discharged on Protonix twice a day, take the medication about half an hour prior to major meals (in an empty stomach) for optimal action. You will need GI follow-up and possible EGD as an outpatient. Coordinate with your PCP office to set up the referral. Your blood pressure were on the higher side while in hospital, continue to measure your blood pressure twice a day and maintain a log to take to your primary care physician to rule out any situational hypertension and possible management of your blood pressure in the long-term. Take your medications as prescribed. Please make sure that you are able to get your medications today by calling your pharmacy before you leave the hospital so that your treatment continuity is not broken. Pending Studies at Discharge: No Stand-Alone Forms: My [facility], Smoking Cessation Medications and DC Order Prescriptions: New nicotine [Nicoderm CQ] 21 mg/24 hr Patch 24 Hour 1 patch transdermal QAM Qty: 28 0RF sucralfate 100 mg/mL Suspension 1 g PO QID 10 Days Qty: 400 0RF ondansetron 4 mg tablet,disintegrating 4 mg PO BID PRN (Reason: nausea and vomiting) Qty: 30 0RF cefdinir 300 mg capsule 300 mg PO BID 5 Days Qty: 10 0RF Continued lamotrigine [Lamictal] 200 mg Tablet 200 mg PO QAM valacyclovir 500 mg Tablet 500 mg PO QAM metformin 1,000 mg Tablet 1,000 mg PO QAM bupropion HCl 200 mg tablet sustained-release 12 hr 200 mg PO QAM drospirenone-ethinyl estradiol 3-0.03 mg tablet 1 tab PO QAM cyanocobalamin (vitamin B-12) [Vitamin B-12] 1,000 mcg Tablet 1,000 mcg PO QAM promethazine 25 mg tablet 25 mg PO Q6H PRN (Reason: sedation) Qty: 20 0RF Changed pantoprazole [Protonix] 40 mg tablet,delayed release (DR/EC) 40 mg PO BID Qty: 60 0RF Discharge Orders: Discharge Order (Routine); Ordered 12/25/23 Ordered By: Jessica Anand/Other Patient Handouts: High Blood Sugar (Hyperglycemia), Hypoglycemia (Low Blood Sugar), Managing Type 2 Diabetes Admission Data Admit Date/Time: 12/24/23 18:44 Attending Provider: Jessica Reynaga Admit Provider: Harshad Loza Primary Care Provider: Wu Gomez Other Providers: Harshad Loza
[2023-12-25] MEDS ORDERED: cefTRIAXone SODIUM 2,000 MG/50 ML BAG IV SCH (20:00)
== END 2023-12-25 13:43 | disposition home or self-care (01) ==
LOC: ED 15:24 → EDINP 15:24 → SUATTDRO 18:44 → EDINP 21:28

== ENCOUNTER 2023-12-26 11:01 | Observation (INO) ==
--- NOTE | 2023-12-26 11:48 | Emergency Department Note ---
Impression & Plan Intractable nausea and vomiting, Epigastric abdominal pain ED Provider Note Name: DERRELL CEDEÑO Age: 33 Sex: Female Arrives Via: Walk-In Informant: Patient ED Provider: Jeovany Anthony MD Chief Complaint: Nausea vomiting Impression: As per impressions above Medical Decision Makin-year-old female arrives for evaluation of intractable nausea and vomiting associated with epigastric pain. This been ongoing for the last 3 to 4 days to the point where she was admitted 2 days ago discharged yesterday and returns again today. Initially was feeling better overnight however this morning severe worsening of pain. On examination she has some vague epigastric tenderness to palpation is somewhat hypertensive and otherwise does not appear septic. Patient was given Reglan Benadryl morphine IV with essentially resolution of symptoms however after short while symptoms returned rapidly. She was given some Zofran with minimal improvement. Unable to tolerate p.o. continues to vomit thus further Reglan given. Patient will be hospitalized given the intractable nausea vomiting. Although she has had multiple imaging studies of the abdomen without clear cause. She has no specific peritonitis requiring surgical consultation at this time. Laboratory workup is reassuring. Triage/Nursing Notes reviewed by Me External Chart Review by me: I reviewed discharge summary from 12/25/2023. Treatments and workup done during that hospitalization were reviewed. Differential:Gastroenteritis, peptic ulcer disease, bowel obstruction, gastroparesis, cannabis hyperemesis, Vital Signs: reviewed and remarkable for hypertension Interventions: Normal saline bolus 1 L IV, Reglan 5 mg IV x 2, Benadryl 50 mg IV, morphine 4 mg IV, Zofran 4 mg IV Labs:ED labs Reviewed by me and remarkable for no significant abnormalities Imagin view chest x-ray as per my interpretation no infiltrate or effusion appreciated. No evidence of free air under diaphragm EKG:As per my interpretation. Indication epigastric pain. Normal sinus rhythm 65 bpm QTc 434. There is no ectopy no ischemia. Right bundle branch block type morphology similar to EKG from December 23, 2023. Consults:Dr. Deshpande of the [facility] consulted and discussed with her they will bring patient in for further management. Plan: Disposition:Hospitalization. Condition: Good History of Present Illness: 33-year-old female arrives for evaluation of intractable nausea and vomiting. Patient has had significant difficulties treating her nausea and vomiting over the last few weeks. About a month and a half ago she had multiple episodes of nausea vomiting ER visits felt to be due to peptic ulcer disease. Initially was feeling better but then starting 3 days ago developed recurrent nausea vomiting. Was seen in the ER twice and then hospitalized over 24 hours. This did improve her symptoms and she went home yesterday. However this morning when she woke up she felt a bit hungry which rapidly turned into a epigastric pain and recurrent nausea vomiting. She has been unable to keep down any of her pills since about 10 AM. She been trying to take Phenergan and Zofran at home without any improvement. Notes severe epigastric pain is similar to previous episodes. Does not radiate. No fevers, chills, headache, back pain, lower abdominal pain, urinary symptoms, diarrhea, black or bloody stools, blood in emesis, leg swelling or other concerning signs or symptoms. Patient notes that due to her illness she is lost about 40 pounds in the last 2 months. Past Medical History: Anxiety/depression, asthma, tobacco use, obstructive sleep apnea, Home Medications:See Below Allergies:nkda Vitals:Blood Pressure: 181/111, Pulse 70, RR 16, T 36.6C, O2 98% on RA Physical Exam: GENERAL: Patient is uncomfortable appearing and in mild distress. RESPIRATORY: No dyspnea. Clear to auscultation and equal bilaterally. CARDIOVASCULAR: Regular rate and rhythm.No murmur appreciated. GASTROINTESTINAL: No epigastric TTP nor other TTP. Otherwise abdomen soft, non- tender, no peritonitis. BACK: No midline tenderness, no CVA tenderness EXTREMITIES: Normal motion all extremities, no cyanosis, no edema. NEUROLOGIC: Alert and oriented. No focal neurologic deficits appreciated SKIN: No rash, no jaundice, no diaphoresis. ED Course: Times/Reassessments: Patient initially somewhat improved but intractable vomiting once attempted any oral intake. Unable to be discharged home hospitalist consulted. Jeovany Anthony MD Past Med/Surg History Problem List (Updated 12/27/23 @ 08:37 by Jeovany Anthony MD) Cannabinoid hyperemesis syndrome Cannabis abuse Elevated blood pressure reading ALEX on CPAP Morbid obesity Tobacco abuse Intractable nausea and vomiting (Acute) Adrenal nodule (Acute) Nausea and vomiting (Acute) Epigastric abdominal pain (Acute) Encounter for pre-operative examination Dyspnea (Acute) Asthma (Chronic) Anxiety (Chronic) Medical History Morbid obesity with BMI of 50.0-59.9, adult PCOS (polycystic ovarian syndrome) Generalized psoriasis Diabetes mellitus, type 2 NIDDM Sleep apnea cpap Surgical History History of tooth extraction History of wisdom tooth extraction Family History Other No family history of adverse response to anesthesia Social History Smoking Status: Current every day smoker Tobacco Type: Cigarettes Cigarettes Per Day: 20; Second Hand Exposure: No; Do You Dip or Chew Tobacco: No; Hx Alcohol Use: No Hx Substance Use: Yes Last Used Substance: Days (ago) Last Used Substance Other:: before bed Preferred Language: Wolof Communication Ability: Effective Instrumental Teacher Required: No Beliefs That Will Affect Care: None Current Living Situation: Spouse Feels Safe at Home: Yes Safety Concerns: Feels Safe At This Time Assistive Devices: CPAP and Glasses Allergies Allergies Allergy/AdvReac Type Severity Reaction Status Date / Time No Known Allergies Allergy Verified 12/24/23 18:35 Home Meds Home Medications Medication Instructions Recorded Confirmed lamotrigine 200 mg tablet 200 mg PO QAM 01/15/21 12/26/23 (Lamictal) metformin 1,000 mg tablet 1,000 mg PO QAM 01/15/21 12/26/23 valacyclovir 500 mg tablet 500 mg PO QAM 01/15/21 12/26/23 bupropion HCl 200 mg tablet,12 hr 200 mg PO QAM 12/24/23 12/26/23 sustained-release cyanocobalamin (vitamin B-12) 1,000 mcg PO QAM 12/24/23 12/26/23 1,000 mcg tablet (Vitamin B-12) drospirenone 3 mg-ethinyl 1 tab PO QAM 12/24/23 12/26/23 estradiol 0.03 mg tablet Previous Rx's Medication Instructions Recorded promethazine 25 mg tablet 25 mg PO Q6H PRN sedation #20 tabs 12/23/23 cefdinir 300 mg capsule 300 mg PO BID 5 days #10 caps 12/25/23 nicotine 21 mg/24 hr daily 1 patch transdermal QAM #28 ea 12/25/23 transdermal patch (Nicoderm CQ) ondansetron 4 mg disintegrating 4 mg PO BID PRN nausea and 12/25/23 tablet vomiting #30 tabs pantoprazole 40 mg tablet,delayed 40 mg PO BID #60 tabs 12/25/23 release (Protonix) sucralfate 100 mg/mL oral 1 g (10 mL) PO QID 10 days #400 mL 12/25/23 suspension Results & Data (ED) Vital Signs Vital Signs - 24 hr 12/26/23 11:07 12/26/23 11:58 12/26/23 11:59 Temperature 36.6 C Temperature Source Temporal Artery Scan Pulse Rate 70 66 Pulse Rate [Apical] 70 Pulse Rhythm Regular Pulse Rhythm [Apical] Pulse Strength [Apical] Normal Respiratory Rate 16 19 Respiratory Effort / Characteristics Non-Labored Spontaneous Non-Labored Spontaneous Respiratory Depth Normal Normal Respiratory Pattern Regular Blood Pressure 181/111 H Blood Pressure [Right Arm] 176/101 H Blood Pressure Mean 134 Blood Pressure Mean [Right Arm] 126 Pulse Oximetry 98 100 100 Oxygen Delivery Method Room Air Room Air Room Air Sepsis Recent Fever Within 48 Hours No Sepsis New/Unexplained Change in Mental Status No Sepsis Action Taken by Nursing No Action Required 12/26/23 12:15 12/26/23 13:18 12/26/23 14:21 Temperature Temperature Source Pulse Rate 56 L Pulse Rate [Apical] 59 L Pulse Rhythm Pulse Rhythm [Apical] Pulse Strength [Apical] Respiratory Rate 19 Respiratory Effort / Characteristics Non-Labored Spontaneous Respiratory Depth Normal Respiratory Pattern Regular Blood Pressure Blood Pressure [Right Arm] 151/95 H Blood Pressure Mean Blood Pressure Mean [Right Arm] 113 Pulse Oximetry 99 Oxygen Delivery Method Room Air Room Air Sepsis Recent Fever Within 48 Hours Sepsis New/Unexplained Change in Mental Status Sepsis Action Taken by Nursing 12/26/23 14:49 Temperature Temperature Source Pulse Rate Pulse Rate [Apical] 68 Pulse Rhythm Pulse Rhythm [Apical] Regular Pulse Strength [Apical] Normal Respiratory Rate 19 Respiratory Effort / Characteristics Non-Labored Spontaneous Respiratory Depth Normal Respiratory Pattern Blood Pressure Blood Pressure [Right Arm] 147/93 H Blood Pressure Mean Blood Pressure Mean [Right Arm] 111 Pulse Oximetry 99 Oxygen Delivery Method Room Air Sepsis Recent Fever Within 48 Hours Sepsis New/Unexplained Change in Mental Status Sepsis Action Taken by Nursing Laboratory Data 12/27/23 07:52 12/27/23 07:52 Lab Results 12/26/23 12/26/23 Range/Units 11:20 12:10 WBC 13.35 H (4.8-10.8) K/ul RBC 4.87 (4.20-5.40) M/uL Hgb 13.5 (12.0-16.0) g/dl Hct 40.0 (37.0-47.0) % MCV 82.1 (80.0-100.0) fL MCH 27.7 (25.0-34.0) pg MCHC 33.8 (32.0-36.0) g/dL RDW Std Deviation 40.8 (36.4-46.3) fL RDW Coeff of Tay 13.8 (11.5-14.5) % Plt Count 342 (130-400) K/uL MPV 8.8 L (9.4-12.4) fL Immature Gran % (Auto) 0.7 % Neut % (Auto) 84.7 % Lymph % (Auto) 11.3 % [place] % (Auto) 2.8 % Eos % (Auto) 0.3 % Baso % (Auto) 0.2 % Neut # (Auto) 11.31 H (1.40-6.50) K/uL Lymph # (Auto) 1.51 (1.20-3.40) K/uL [place] # (Auto) 0.37 (0.11-0.59) K/uL Eos # (Auto) 0.04 (0.00-0.50) K/uL Baso # (Auto) 0.03 (0.00-0.20) K/uL Immature Gran # (Auto) 0.09 (0.01-0.20) K/uL PT 10.8 (9.0-12.0) Seconds INR 1.0 (0.9-1.1) APTT 25 (21-31) Seconds PTT Ratio 0.9 Sodium 136 (136-145) mmol/L Potassium 3.6 (3.5-5.1) mmol/L Chloride 104 (98-107) mmol/L Carbon Dioxide 21 (21-32) mmol/L Anion Gap 11 (3-11) BUN 8 (6-23) mg/dl Creatinine 0.70 (0.6-1.2) mg/dl Est Cr Clr Drug Dosing 157.3 ml/min Est GFR ( Amer) 131.9 ml/min Est GFR (Non-Af Amer) 113.8 ml/min BUN/Creatinine Ratio 11.4 (10-20) Glucose 115 H (70-99(Fasting)) mg/dl Calcium 9.7 (8.6-10.3) mg/dl Total Bilirubin 0.6 (0.2-1.0) mg/dl AST 41 H (13-39) U/L ALT 104 H (7-52) U/L Alkaline Phosphatase 60 (34-104) U/L Troponin I High Sens 5.9 (0-14) pg/ml Total Protein 7.7 (6.0-8.3) gm/dl Albumin 4.3 (3.4-5.0) gm/dl Globulin 3.4 (2.5-4.0) gm/dl Albumin/Globulin Ratio 1.3 (0.9-2) Lipase 6 L (11-82) U/L Urine Opiates Screen Pos H (Neg) Ur Methadone, Qual Neg (Neg) Urine Fentanyl Screen Neg (Neg) Urine Barbiturates Neg (Neg) Ur Phencyclidine (PCP) Neg (Neg) U Amphetamin/Meth Scrn Neg (Neg) MDMA (Ecstasy) Screen Neg (Neg) U Benzodiazepines Scrn Neg (Neg) Ur Cocaine Metabolite Neg (Neg) U Marijuana (THC) Screen Pos H (Neg) Administered Medications Bupropion HCl (Bupropion Sr 100 Mg Tabcr) 200 mg PO QAM [facility] Stop: 01/26/24 08:59 Last Admin: 12/27/23 08:42 Dose: 200 mg Documented By: SHANE Capsaicin (Capsaicin Cr 0.075% 60 Gm Tube) 1 appln EXT Q8H [facility] Stop: 01/25/24 15:59 Last Admin: 12/27/23 08:43 Dose: Not Given Documented By: Admin: 12/26/23 23:22 Dose: Not Given Documented By: Admin: 12/26/23 15:30 Dose: 1 appln Documented By: GGG Cyanocobalamin (Cyanocobalamin (B-12) 500 Mcg Tablet) 1,000 mcg PO QAM [facility] Stop: 01/26/24 08:59 Last Admin: 12/27/23 08:42 Dose: 1,000 mcg Documented By: SHANE Enoxaparin Sodium (Enoxaparin Inj 40 Mg/0.4 Ml Syr) 40 mg SQ Q12H [facility] Stop: 01/25/24 16:59 Last Admin: 12/26/23 23:23 Dose: Not Given Documented By: Admin: 12/26/23 18:37 Dose: Not Given Documented By: GLADIS Ceftriaxone Sodium (Rocephin) 2,000 mg in 50 mls @ 100 mls/hr IV Q24H [facility]; Protocol Stop: 12/31/23 15:59 Last Infusion: 12/26/23 16:06 Dose: Infused Documented By: Admin: 12/26/23 15:31 Dose: 100 mls/hr Documented By: DYLAN Sodium Chloride (Nss) 1,000 mls @ 80 mls/hr IV .[id number] [facility] Stop: 01/25/24 16:44 Last Admin: 12/27/23 05:06 Dose: 80 mls/hr Documented By: JEAN-CLAUDE Infusion: 12/27/23 05:06 Dose: Infused Documented By: JEAN-CLAUDE Admin: 12/26/23 17:15 Dose: 80 mls/hr Documented By: GLADIS Pantoprazole Sodium 40 mg/ (Syringe) 10 mls @ 5 mls/min IV BID [facility] Stop: 01/25/24 20:59 Last Admin: 12/26/23 22:22 Dose: 5 mls/min Documented By: LELIA Acetaminophen (Ofirmev) 1,000 mg in 100 mls @ 400 mls/hr IV Q8H PRN PRN Reason: Pain or Fever Stop: 12/29/23 17:07 Last Infusion: 12/26/23 19:01 Dose: Infused Documented By: Admin: 12/26/23 18:44 Dose: 400 mls/hr Documented By: GLADIS Insulin Aspart (Insulin Aspart Per Unit Charge) 0 units SC ACHS [facility] Stop: 01/25/24 20:59 Last Admin: 12/27/23 08:40 Dose: Not Given Documented By: Admin: 12/26/23 22:48 Dose: Not Given Documented By: LELIA Co-signed By: JEAN-CLAUDE Lamotrigine (Lamotrigine 100 Mg Tab) 200 mg PO QAM [facility]; Protocol Stop: 01/26/24 08:59 Last Admin: 12/27/23 08:42 Dose: 200 mg Documented By: SHANE Miscellaneous ( Control - Order Awaiting Action) 1 each N/A QS [facility] Stop: 01/26/24 00:00 Last Admin: 12/27/23 08:41 Dose: Not Given Documented By: Admin: 12/26/23 23:22 Dose: Not Given Documented By: LELIA Miscellaneous (Remove Nicoderm Patch) 1 each N/A DAILY@0859 [facility] Stop: 01/26/24 08:58 Last Admin: 12/27/23 08:43 Dose: 1 each Documented By: SHANE Nicotine (Nicotine 21 Mg/24 Hr Tdsy) 1 patch TD [facility] Stop: 01/25/24 16:51 Last Admin: 12/27/23 08:43 Dose: 1 patch Documented By: Admin: 12/26/23 18:44 Dose: 1 patch Documented By: GLADIS Valacyclovir HCl (Valacyclovir Hcl 500 Mg Tablet) [facility] Stop: 01/26/24 08:59 Last Admin: 12/27/23 08:42 Dose: 500 mg Documented By: SHANE Discontinued Medications Diphenhydramine HCl (Diphenhydramine 50 Mg/Ml Vial) 50 mg IV NOW STA Stop: 12/26/23 11:42 Last Admin: 12/26/23 11:55 Dose: 50 mg Documented By: DYLAN Famotidine (Pepcid 20mg Iv Push) 20 mg in 5 mls @ 2.5 mls/min IV NOW STA Stop: 12/26/23 11:42 Last Admin: 12/26/23 11:54 Dose: 2.5 mls/min Documented By: DYLAN Sodium Chloride (Nss) 1,000 mls @ 999 mls/hr IV .Q1H1M ONE Stop: 12/26/23 12:43 Last Infusion: 12/26/23 13:03 Dose: Infused Documented By: Admin: 12/26/23 11:51 Dose: 999 mls/hr Documented By: DYLAN Metoclopramide HCl (Metoclopramide Hcl Inj 5 Mg/Ml 2 Ml Vial) 5 mg IV ONE ONE Stop: 12/26/23 11:42 Last Admin: 12/26/23 11:53 Dose: 5 mg Documented By: DYLAN Metoclopramide HCl (Metoclopramide Hcl Inj 5 Mg/Ml 2 Ml Vial) 5 mg IV ONE ONE Stop: 12/26/23 14:37 Last Admin: 12/26/23 14:39 Dose: 5 mg Documented By: ABDI Morphine Sulfate (Morphine Sulfate 4 Mg/Ml 1 Ml Carp\Vial) 4 mg IV NOW STA Stop: 12/26/23 11:42 Last Admin: 12/26/23 11:56 Dose: 4 mg Documented By: DYLAN Ondansetron HCl (Ondansetron Inj 2 Mg/Ml 2 Ml Vial) 4 mg IV NOW STA Stop: 12/26/23 13:45 Last Admin: 12/26/23 13:48 Dose: 4 mg Documented By: DYLAN Discharge Plan Visit Data Chief Complaint: Illness Stated Complaint: SEVERE NAUSEA, VOMITING, ABD PAIN, NEAR SYNCOPE ED Provider: Jeovany Anthony Discharge Problem: Intractable nausea and vomiting, Epigastric abdominal pain Patient Disposition: Admitted As Inpatient Discharge Instructions Interventions: ED Discharge Assessment Last Done: 12/26/23 16:29
[2023-12-26] MEDS: SODIUM CHLORIDE 0.9% 1,000 ML IV ONE (11:51)
[2023-12-26] MEDS: METOCLOPRAMIDE HCL INJ 5 MG/ML 2 ML VIAL IV ONE ×2 (11:53→14:39)
[2023-12-26 11:54] LABS: Basophils # (auto) 0.03 K/uL (0.00-0.20); Basophils % (auto) 0.2 %; Eosinophils # (auto) 0.04 K/uL (0.00-0.50); Eosinophils % (auto) 0.3 %; Hemoglobin 13.5 g/dl (12.0-16.0); Immature Granulocytes # (auto) 0.09 K/uL (0.01-0.20); Immature Granulocytes % (auto) 0.7 %; Lymphocytes # (auto) 1.51 K/uL (1.20-3.40); Lymphocytes % (auto) 11.3 %; Mean Corpuscular Hemoglobin 27.7 pg (25.0-34.0); Mean Corpuscular Hgb Conc 33.8 g/dL (32.0-36.0); Mean Corpuscular Volume 82.1 fL (80.0-100.0); Mean Platelet Volume 8.8 fL (9.4-12.4); Monocytes # (auto) 0.37 K/uL (0.11-0.59); Monocytes % (auto) 2.8 %; Neutrophils # (auto) 11.31 K/uL (1.40-6.50); Neutrophils % (auto) 84.7 %; Platelet Count 342 K/uL (130-400); RDW Coefficient of Variation 13.8 % (11.5-14.5); RDW Standard Deviation 40.8 fL (36.4-46.3); Red Blood Count 4.87 M/uL (4.20-5.40); White Blood Count 13.35 K/ul (4.8-10.8)
[2023-12-26] MEDS: FAMOTIDINE 20MG IV PUSH 20 MG/5 ML SYR IV STA (11:54)
[2023-12-26] MEDS: diphenhydrAMINE 50 MG/ML VIAL IV STA (11:55)
[2023-12-26] MEDS: MoRPHine SULFATE 4 MG/ML 1 ML CARP\\VIAL IV STA (11:56)
[2023-12-26 12:07] LABS: Albumin Globulin Ratio 1.3 (0.9-2); Albumin Level 4.3 gm/dl (3.4-5.0); BUN Creatinine Ratio 11.4 (10-20); Bilirubin,Total 0.6 mg/dl (0.2-1.0); Calcium 9.7 mg/dl (8.6-10.3); Creatinine Clr Calc Pharmacy 157.3 ml/min; Est GFR (African American) 131.9 ml/min; Est GFR (Non-African American) 113.8 ml/min; Globulin 3.4 gm/dl (2.5-4.0); Potassium 3.6 mmol/L (3.5-5.1); Total Protein 7.7 gm/dl (6.0-8.3)
[2023-12-26 12:14] LABS: Troponin I High Sensitivity 5.9 pg/ml (0-14)
[2023-12-26 12:19] LABS: Partial Thromboplastin Ratio 0.9; Partial Thromboplastin Time 25 Seconds (21-31); Prothrombin Time 10.8 Seconds (9.0-12.0)
--- NOTE | 2023-12-26 12:34 | XRay Report ---
XR chest 1V portable HISTORY: 33 years-old Female Chest pain, nonspecific COMPARISON: 12/24/2023 TECHNIQUE: AP view of the chest FINDINGS: Chronic silhouette is mildly enlarged, unchanged. The lungs appear clear. Bones appear intact. No pne umothorax or pleural effusion. IMPRESSION: No acute process. ACT 112: Negative or not required by law. The above report was generated using voice recognition software. It may contain grammatical, syntax o r spelling errors. Electronically signed by: Emerson Diane M.D. 12/26/2023 12:32 PM
[2023-12-26] MEDS: ONDANSETRON INJ 2 MG/ML 2 ML VIAL IV STA (13:48)
--- NOTE | 2023-12-26 15:08 | History & Physical Report ---
Date of Service December 26, 2023 Assessment & Plan (1) Intractable nausea and vomiting: (2) Morbid obesity: (3) Cannabis abuse: (4) Cannabinoid hyperemesis syndrome: Plan Ms. Fuller is a 33-year-old female with history of morbid obesity, ALEX CPAP, diabetes mellitus type 2 on metformin, psoriasis, tobacco abuse, medical marijuana use who presented to ED with intractable nausea, vomiting and upper abdominal pain. Patient in the ED or admitted since 12/22 due to ongoing symptom s. Patient is chronic cannabinoid user. Patient reports she does not get relief with hot showers, but willing to trial topical capsaicin Imaging reviewed from 12/23- admission, no remarkable findings. #Intractable nausea and vomiting with upper epigastric pain/burning DDX PUD, gastritis (mucosal erythema noted on EGD 2020) v cannabis hyperemesis syndrome -Patient unable to tolerate PO therefore admitting to med/surg on observation status -Encourage po as able -IVF started -IV protonix BID -Antiemetics prn -Topical capsaicin to epigastrium trial -Given repeated presentation, GI consult #Uncomplicated UTI POA Continue CTX to complete course from d/c #DM-2 on metformin. held A1C is am SSI prn. #Elevated BP iso wretching, discomfort CTM #Tobacco abuse- smokes 1 ppd. Recommended quitting. Continue nicoderm patch; requests refills at d/c #Cannabis use Encouraged cessation given presentation, remarks it is "medicinal" continue efforts #Morbid obesity- DMI 51.4. recommend OP f/u #ALEX on CPAP at 13 cm H2O- cpap ordered #Adrenal nodule incidental finding in CT from recent admission. Reiterate follow up with PCP/endo as OP for further work up Admission and Anticipated Discharge Date Admission Date: Time spent evaluating patient, direct bedside care, chart review, placing orders, interpretation of diagnostic studies, discussion with consultants, patient, and family members, as well as other required patient management activities is 75minutes. History of Present Illness Chief Complaint: Intractable N/V Primary Care Provider: Wu Gomez MD Ms. Fuller is a 33 year old woman with past medical history remarkable for morbid obesity, ALEX CPAP, diabetes mellitus type 2 on metformin, psoriasis, tobacco abuse, medical marijuana use presented to [facility] ED due to intractable nausea, vomiting and upper abdominal pain. Patient states she was doing well overall after discharge, but upon returning home--her stomach began to hurt--marked by sharp, stabbing, burning sensation. She then states this morning after taking the antibiotic and the sucralfate she felt nauseated--prompting her presentation to the ED. She cannot keep water down and wretches with anything by mouth. She last utilized cannabis yesterday upon returning, but is sure this did not do it. She states this is progressive--she has been taking PPI BID for years and now a probiotic with a BLAND diet to help her symptoms. In the ED, vitals were notable for BP of 140s-160s, HR of 60-70s and O2 sat of high 90s on room air Imaging revealed mildly enlarged cardiac silhouette but no acute processes EKG with QTC 434 ED interventions: GI cocktail Patient to be admitted to [facility] for further evaluation and management of n ausea and vomiting Allergies Allergy/AdvReac Type Severity Reaction Status Date / Time No Known Allergies Allergy Verified 12/24/23 18:35 Home Medications Medication Instructions Recorded Confirmed Type lamotrigine 200 mg tablet 200 mg PO QAM 01/15/21 12/26/23 History (Lamictal) metformin 1,000 mg tablet 1,000 mg PO QAM 01/15/21 12/26/23 History valacyclovir 500 mg tablet 500 mg PO QAM 01/15/21 12/26/23 History promethazine 25 mg tablet 25 mg PO Q6H PRN sedation #20 tabs 12/23/23 12/26/23 Rx bupropion HCl 200 mg tablet,12 hr 200 mg PO QAM 12/24/23 12/26/23 History sustained-release cyanocobalamin (vitamin B-12) 1,000 mcg PO QAM 12/24/23 12/26/23 History 1,000 mcg tablet (Vitamin B-12) drospirenone 3 mg-ethinyl 1 tab PO QAM 12/24/23 12/26/23 History estradiol 0.03 mg tablet cefdinir 300 mg capsule 300 mg PO BID 5 days #10 caps 12/25/23 12/26/23 Rx nicotine 21 mg/24 hr daily 1 patch transdermal QAM #28 ea 12/25/23 12/26/23 Rx transdermal patch (Nicoderm CQ) ondansetron 4 mg disintegrating 4 mg PO BID PRN nausea and 12/25/23 12/26/23 Rx tablet vomiting #30 tabs pantoprazole 40 mg tablet,delayed 40 mg PO BID #60 tabs 12/25/23 12/26/23 Rx release (Protonix) sucralfate 100 mg/mL oral 1 g (10 mL) PO QID 10 days #400 mL 12/25/23 12/26/23 Rx suspension Past Med/Surg History Problem List (Updated 12/26/23 @ 16:40 by Helen Deshpande MD) Cannabinoid hyperemesis syndrome Cannabis abuse Elevated blood pressure reading ALEX on CPAP Morbid obesity Tobacco abuse Intractable nausea and vomiting (Acute) Adrenal nodule (Acute) Nausea and vomiting (Acute) Epigastric abdominal pain (Acute) Encounter for pre-operative examination Dyspnea (Acute) Asthma (Chronic) Anxiety (Chronic) Medical History Morbid obesity with BMI of 50.0-59.9, adult PCOS (polycystic ovarian syndrome) Generalized psoriasis Diabetes mellitus, type 2 NIDDM Sleep apnea cpap Surgical History History of tooth extraction History of wisdom tooth extraction Family History Other No family history of adverse response to anesthesia Social History Smoking Status: Current every day smoker Tobacco Type: Cigarettes Cigarettes Per Day: 20; Second Hand Exposure: No; Do You Dip or Chew Tobacco: No; Hx Alcohol Use: No Hx Substance Use: Yes Last Used Substance Other:: Uses medical marijuana daily for sleep Preferred Language: Icelandic Communication Ability: Effective Web Ui Software Engineer Required: No Beliefs That Will Affect Care: None Current Living Situation: Spouse Feels Safe at Home: Yes Assistive Devices: CPAP and Glasses Review of Systems Review of Systems: Constitutional: (-) fever/chills, (-) recent loss of weight, ++ appetite changes, (-) night sweats. Head: (-) headache, (-) dizziness. Eye: (-) blurring of vision, (-) double vision, (-) redness. Ear: (-) hearing loss, (-) discharge, (-) vertigo Nose: (-) discharge, (-) bleeding, (-) congestion, (-) post nasal drip. Throat: (-) sore throat, (-) hoarseness of voice, (-) odynophagia. Cardiovascular: (-) chest pain, (-) palpitations, (-) syncope, (-) orthopnea, (- ) PND, (-) leg swelling. Respiratory: (-) shortness of breath, (-) cough, (-) wheezing, (-) hemoptysis. Neuro: (-) weakness in extremities, (-) numbness, (-) tingling, (-) tremor. Gastrointestinal: (++) belly pain, (-) belly distension, (++) nausea, (++) vomiting, (-) diarrhea, (-) constipation, Genitourinary: (-) hematuria, (-) dysuria, (-) polyuria, (-) hesitancy, (-) frequency, (-) urinary incontinence. Musculoskeletal: (-) myalgia, (-) arthralgia. Skin: (-) rashes. Endocrine: (-) heat/cold intolerance. Physical Exam Physical Exam: GENERAL APPEARANCE: AxOx4, mildly anxious and uncomfortable woman HEENT: NC, AT. MMM. EOMI, clear conjunctiva, oropharynx clear. NECK: Supple without lymphadenopathy. No stiffness or restricted ROM. HEART: Normal rate and regular rhythm, normal S1/S1, no m/r/g LUNGS: CTAB, moving air well. No crackles or wheezes are heard. ABDOMEN: Soft, TTP epigastrium, actively wretching, no vomitus noted EXTREMITIES: Without cyanosis, clubbing or edema. NEUROLOGICAL: Grossly nonfocal. Alert and oriented, moving all 4 extremities. CN not formally tested but appear grossly intact. Observed to ambulate with normal gait. Skin: Warm and dry without any rash. Results & Data Results & Data Vital Signs (Past 12 Hours) Vital Signs Temp Pulse Pulse Resp BP BP Pulse Ox 12/26/23 14:49 68 19 147/93 H 99 12/26/23 14:21 12/26/23 13:18 59 L 19 151/95 H 99 12/26/23 12:15 56 L 12/26/23 11:59 66 100 12/26/23 11:58 70 19 176/101 H 100 12/26/23 11:07 36.6 C 70 16 181/111 H 98 O2 Del Method 12/26/23 14:49 Room Air 12/26/23 14:21 Room Air 12/26/23 13:18 Room Air 12/26/23 12:15 12/26/23 11:59 Room Air 12/26/23 11:58 Room Air 12/26/23 11:07 Room Air Laboratory Results Short CBC 12/26/23 Range/Units 11:20 WBC 13.35 H (4.8-10.8) K/ul Hgb 13.5 (12.0-16.0) g/dl Hct 40.0 (37.0-47.0) % Plt Count 342 (130-400) K/uL BMP 12/26/23 11:20 Sodium 136 Potassium 3.6 Chloride 104 Carbon Dioxide 21 BUN 8 Creatinine 0.70 Glucose 115 H Calcium 9.7 Liver Function 12/26/23 Range/Units 11:20 Total Bilirubin 0.6 (0.2-1.0) mg/dl AST 41 H (13-39) U/L ALT 104 H (7-52) U/L Alkaline Phosphatase 60 (34-104) U/L Albumin 4.3 (3.4-5.0) gm/dl Medications Administered Home Medications Medication Instructions Recorded Confirmed Last Taken lamotrigine 200 mg tablet 200 mg PO [facility] 01/15/21 12/26/23 12/23/23 (Lamictal) metformin 1,000 mg tablet 1,000 mg PO [facility] 01/15/21 12/26/23 12/23/23 valacyclovir 500 mg tablet 500 mg PO [facility] 01/15/21 12/26/23 12/23/23 promethazine 25 mg tablet 25 mg PO Q6H PRN sedation #20 tabs 12/23/23 12/26/23 Unknown bupropion HCl 200 mg tablet,12 hr 200 mg PO QAM 12/24/23 12/26/23 12/23/23 sustained-release cyanocobalamin (vitamin B-12) 1,000 mcg PO QAM 12/24/23 12/26/23 12/23/23 1,000 mcg tablet (Vitamin B-12) drospirenone 3 mg-ethinyl 1 tab PO QAM 12/24/23 12/26/23 12/23/23 estradiol 0.03 mg tablet cefdinir 300 mg capsule 300 mg PO BID 5 days #10 caps 12/25/23 12/26/23 Unknown nicotine 21 mg/24 hr daily 1 patch transdermal QAM #28 ea 12/25/23 12/26/23 Unknown transdermal patch (Nicoderm CQ) ondansetron 4 mg disintegrating 4 mg PO BID PRN nausea and 12/25/23 12/26/23 Unknown tablet vomiting #30 tabs pantoprazole 40 mg tablet,delayed 40 mg PO BID #60 tabs 12/25/23 12/26/23 Unknown release (Protonix) sucralfate 100 mg/mL oral 1 g (10 mL) PO QID 10 days #400 mL 12/25/23 12/26/23 Unknown suspension Code Status & VTE Plan VTE Prophylaxis Plan VTE Prophylaxis will be ordered: Yes
[2023-12-26] MEDS: CAPSAICIN CR 0.075% 60 GM TUBE EXT SCH (15:30)
[2023-12-26] MEDS: cefTRIAXone SODIUM 2,000 MG/50 ML BAG IV SCH (15:31)
[2023-12-26 15:41] LABS: Amphetamines+Metham, Urine Neg (Neg); Barbiturates, Urine Neg (Neg); Benzodiazepine, Urine Neg (Neg); Cocaine, Urine Neg (Neg); Fentanyl, Urine Neg (Neg); MDMA (Ecstacy), Urine Neg (Neg); Marijuana, Urine Pos (Neg); Methadone, Urine Neg (Neg); Opiate, Urine Pos (Neg); Phencyclidine, Urine Neg (Neg)
[2023-12-26] MEDS ORDERED: CARBOHYDRATES FOR HYPOGLYCEMIA PO PRN (16:52)
[2023-12-26] MEDS ORDERED: ACETAMINOPHEN 325 MG TAB PO PRN (16:52)
[2023-12-26] MEDS ORDERED: DEXTROSE 50% 50 ML SYRINGE IV PRN (16:52)
[2023-12-26] MEDS ORDERED: GLUCOSE 10 TAB/TUBE PO PRN (16:52)
[2023-12-26] MEDS ORDERED: GLUCAGON FOR INJ 1 MG VIAL SQ PRN (16:52)
[2023-12-26] MEDS ORDERED: GLUCOSE 40% GEL 15 GM TUBE PO PRN (16:52)
[2023-12-26] MEDS ORDERED: ONDANSETRON INJ 2 MG/ML 2 ML VIAL IV PRN (16:52)
[2023-12-26] MEDS: SODIUM CHLORIDE 0.9% 1,000 ML IV SCH (17:15)
[2023-12-26] MEDS: ENOXAPARIN INJ 40 MG/0.4 ML SYR SQ SCH (18:37)
[2023-12-26] MEDS: ACETAMINOPHEN 1,000 MG/100 ML VIAL IV PRN (18:44)
[2023-12-26] MEDS: NICOTINE 21 MG/24 HR TDSY TD SCH (18:44)
[2023-12-26] MEDS: PANTOprazole 40 MG in SYRINGE 0 ML IV SCH (22:22)
[2023-12-26] MEDS: INSULIN ASPART PER UNIT CHARGE SC SCH (22:48)
[2023-12-26] MEDS: BIRTH CONTROL - ORDER AWAITING ACTION SCH (23:22)
--- NOTE | 2023-12-27 06:19 | Electrocardiogram Report ---
Test Reason : Blood Pressure : / mmHG Vent. Rate : 065 BPM Atrial Rate : 065 BPM P-R Int : 122 ms QRS Dur : 084 ms QT Int : 418 ms P-R-T Axes : 026 010 023 degrees QTc Int : 434 ms Normal sinus rhythm Normal ECG When compared with ECG of 23-DEC-2023 12:18, No significant change was found Confirmed by Raul Cook ([id number]) on 12/27/2023 6:19:03 AM Referred By: Confirmed By:Raul Cook
--- NOTE | 2023-12-27 06:58 | Gastrointestinal Consultation ---
<Statement entered by Kassi Lawson MD - 12/27/23 15:57> The patient left the hospital prior to my evaluation. I agree with the documentation provided by EFE Liz with no additional comments. Date of Consultation December 27, 2023 Assessment & Plan (1) Cannabinoid hyperemesis syndrome: -Advise marijuana cessation. Note it can take 6+ weeks for side effects to resolve. Patient does not seem receptive to the thought of discontinuing marijuana (which she uses for sleep purposes). -Continue prn antiemetics. -Apply topical capsaicin periumbilically q 6 hr prn abdominal pain. Patient notes she tried this one single time without improvement. I advised continued use. -Continue Protonix 40 mg BID upon discharge. She will need outpatient GI evaluation with EGD +/- [facility] to assess for any other non-marijuana related issues. History of Present Illness Reason for Consultation: Nausea & vomiting Attending Physician: Helen Deshpande MD History of Present Illness Patient is a 33 yo female with repeated presentations to the ED at [facility] for nausea & vomiting. Due to her history of marijuana use, she has been diagnosed with cannabinoid hyperemesis syndrome. She has not ceased marijuana usage and returned to the hospital yesterday for ongoing symptoms. In the past, she has been cared for by [facility] and had an EGD with gastritis in 2020. PMH includes obesity, ALEX, tobacco abuse, adrenal nodule and anxiety. She appears to be prescribed Zofran 4 mg BID prn at home as well as Protonix 40 mg BID and Promethazine 25 mg po q 6 hr prn. She also has a home med of Carafate 1 gm QID. She also takes Lamictal, Bupropion, Metformin & drospirenone ethinyl estradiol. She notes that since beginning Protonix she has had improvement of her symptoms. She is dressed in street clothes in her bedside chair. No overt GI bleeding. Allergies Allergy/AdvReac Type Severity Reaction Status Date / Time No Known Allergies Allergy Verified 12/24/23 18:35 Home Medications Medication Instructions Recorded Confirmed Type lamotrigine 200 mg tablet 200 mg PO QAM 01/15/21 12/26/23 History (Lamictal) metformin 1,000 mg tablet 1,000 mg PO QAM 01/15/21 12/26/23 History valacyclovir 500 mg tablet 500 mg PO QAM 01/15/21 12/26/23 History promethazine 25 mg tablet 25 mg PO Q6H PRN sedation #20 tabs 12/23/23 12/26/23 Rx bupropion HCl 200 mg tablet,12 hr 200 mg PO QAM 12/24/23 12/26/23 History sustained-release cyanocobalamin (vitamin B-12) 1,000 mcg PO QAM 12/24/23 12/26/23 History 1,000 mcg tablet (Vitamin B-12) drospirenone 3 mg-ethinyl 1 tab PO QAM 12/24/23 12/26/23 History estradiol 0.03 mg tablet cefdinir 300 mg capsule 300 mg PO BID 5 days #10 caps 12/25/23 12/26/23 Rx nicotine 21 mg/24 hr daily 1 patch transdermal QAM #28 ea 12/25/23 12/26/23 Rx transdermal patch (Nicoderm CQ) ondansetron 4 mg disintegrating 4 mg PO BID PRN nausea and 12/25/23 12/26/23 Rx tablet vomiting #30 tabs pantoprazole 40 mg tablet,delayed 40 mg PO BID #60 tabs 12/25/23 12/26/23 Rx release (Protonix) sucralfate 100 mg/mL oral 1 g (10 mL) PO QID 10 days #400 mL 12/25/23 12/26/23 Rx suspension Patient History Medical History Morbid obesity with BMI of 50.0-59.9, adult PCOS (polycystic ovarian syndrome) Generalized psoriasis Diabetes mellitus, type 2 NIDDM Sleep apnea cpap Surgical History History of tooth extraction History of wisdom tooth extraction Family History Other No family history of adverse response to anesthesia Social History Smoking Status: Current every day smoker Tobacco Type: Cigarettes Cigarettes Per Day: 20; Second Hand Exposure: No; Do You Dip or Chew Tobacco: No; Hx Alcohol Use: No Hx Substance Use: Yes Last Used Substance: Days (ago) Last Used Substance Other:: before bed Preferred Language: Frisian Communication Ability: Effective Executive Director Required: No Beliefs That Will Affect Care: None Current Living Situation: Spouse Feels Safe at Home: Yes Safety Concerns: Feels Safe At This Time Assistive Devices: CPAP and Glasses Review of Systems Constitutional: no fever and no chills Gastrointestinal: no abdominal pain, no nausea and no vomiting Psychiatric: no problem reported Physical Exam Constitutional: well developed Respiratory: normal respiratory effort Gastrointestinal (Abdomen): normal bowel sounds, soft, nontender, no hepatosplenomegaly Results & Data Vital Signs (Past 12 Hours) Vital Signs Temp Pulse Pulse Resp BP Pulse Ox O2 Del Method 12/27/23 03:27 68 22 96 12/26/23 20:49 36.9 C 70 18 148/88 H 95 Room Air FiO2 12/27/23 03:27 21 12/26/23 20:49 PG Care Time/CCT Total # of Minutes Spent Total Time Spent with Patient: Total time spent is greater than 50% in coordination of care (as documented) at patient's floor/unit and/or counseling patient: Coding Level of Care Code 18288 IN/OBS CONSULT LVL 4,60M Diagnoses Cannabinoid hyperemesis syndrome R11.2; F12.90
[2023-12-27 08:20] LABS: Hematocrit (blood only) 39.6 % (37.0-47.0); Hemoglobin 13.1 g/dl (12.0-16.0); Mean Corpuscular Hemoglobin 27.9 pg (25.0-34.0); Mean Corpuscular Hgb Conc 33.1 g/dL (32.0-36.0); Mean Corpuscular Volume 84.3 fL (80.0-100.0); Mean Platelet Volume 8.6 fL (9.4-12.4); Platelet Count 322 K/uL (130-400); RDW Coefficient of Variation 13.6 % (11.5-14.5); RDW Standard Deviation 41.6 fL (36.4-46.3); White Blood Count 10.71 K/ul (4.8-10.8)
[2023-12-27 08:31] LABS: Estimated Average Glucose 114 mg/dl; Hemoglobin A1C 5.6 % (4.5-5.6)
[2023-12-27] MEDS: lamoTRIgine 100 MG TAB PO SCH (08:42)
[2023-12-27] MEDS: buPROPion SR 100 MG TABCR PO SCH (08:42)
[2023-12-27] MEDS: valACYclovir HCL 500 MG TABLET PO SCH (08:42)
[2023-12-27] MEDS: CYANOCOBALAMIN (B-12) 500 MCG TABLET PO SCH (08:42)
[2023-12-27 08:52] LABS: Albumin Level 3.9 gm/dl (3.4-5.0); BUN Creatinine Ratio 8.2 (10-20); Bilirubin Direct 0.1 mg/dl (0-0.2); Bilirubin,Total 0.5 mg/dl (0.2-1.0); Calcium 8.9 mg/dl (8.6-10.3); Creatinine Clr Calc Pharmacy 150.9 ml/min; Est GFR (African American) 125.4 ml/min; Est GFR (Non-African American) 108.2 ml/min; Magnesium 1.8 mg/dl (1.7-2.4); Phosphorus 3.7 mg/dl (2.5-4.9); Potassium 3.4 mmol/L (3.5-5.1)
--- NOTE | 2023-12-27 13:19 | Discharge Summary ---
Date of Service December 27, 2023 Admission HPI Per Admitting Provider Ms. Fuller is a 33 year old woman with past medical history remarkable for morbid obesity, ALEX CPAP, diabetes mellitus type 2 on metformin, psoriasis, tobacco abuse, medical marijuana use presented to [facility] ED due to intractable nausea, vomiting and upper abdominal pain. Patient states she was doing well overall after discharge, but upon returning home--her stomach began to hurt--marked by sharp, stabbing, burning sensation. She then states this morning after taking the antibiotic and the sucralfate she felt nauseated--prompting her presentation to the ED. She cannot keep water down and wretches with anything by mouth. She last utilized cannabis yesterday upon returning, but is sure this did not do it. She states this is progressive--she has been taking PPI BID for years and now a probiotic with a BLAND diet to help her symptoms. In the ED, vitals were notable for BP of 140s-160s, HR of 60-70s and O2 sat of high 90s on room air Imaging revealed mildly enlarged cardiac silhouette but no acute processes EKG with QTC 434 ED interventions: GI cocktail [facility] be [facility] for further evaluation and management of nausea and vomiting Admission Exam Per Admitting Provider GENERAL APPEARANCE: AxOx4, mildly anxious and uncomfortable woman HEENT: NC, AT. MMM. EOMI, clear conjunctiva, oropharynx clear. NECK: Supple without lymphadenopathy. No stiffness or restricted ROM. HEART: Normal rate and regular rhythm, normal S1/S1, no m/r/g LUNGS: CTAB, moving air well. No crackles or wheezes are heard. ABDOMEN: Soft, TTP epigastrium, actively wretching, no vomitus noted EXTREMITIES: Without cyanosis, clubbing or edema. NEUROLOGICAL: Grossly nonfocal. Alert and oriented, moving all 4 extremities. CN not formally tested but appear grossly intact. Observed to ambulate with normal gait. Skin: Warm and dry without any rash. Principal Diagnosis Cannabinoid hyperemesis syndrome vs GERD vs both Discharge Exam General: Morbidly obese female, sitting comfortably in bed, not in distress, on room air HEENT: EOMI, FADIA, MMM Chest: Clear breath sounds bilaterally, no wheezes or crackles CVS: Regular rate and rhythm, normal heart sounds, no murmur Abdomen: Soft, non tender, not distended, normal bowel sounds Neuro: Awake, alert, oriented, conversing well, non focal Extremities: No cyanosis, clubbing or edema Discharge Data Allergies Allergy/AdvReac Type Severity Reaction Status Date / Time No Known Allergies Allergy Verified 12/24/23 18:35 Consultations 12/26/23 14:43 ED Decision to Admit Stat 12/26/23 16:52 Consult Gastroenterology Routine Hospital Course (1) Intractable nausea and vomiting: (2) Morbid obesity: (3) Cannabis abuse: (4) Cannabinoid hyperemesis syndrome: Plan Per prior attending with addendum: Ms. Fuller is a 33-year-old female with history of morbid obesity, ALEX CPAP, diabetes mellitus type 2 on metformin, psoriasis, tobacco abuse, medical marijuana use who presented to ED with intractable nausea, vomiting and upper abdominal pain. Patient in the ED or admitted since 12/22 due to ongoing symptoms. Patient is chronic cannabinoid user. Patient reports she does not get relief with hot showers, but willing to trial topical capsaicin Imaging reviewed from 12/23- admission, no remarkable findings. #Intractable nausea and vomiting with upper epigastric pain/burning DDX PUD, gastritis (mucosal erythema noted on EGD 2020) v cannabis hyperemesis syndrome -Patient unable to tolerate PO therefore admitting to med/surg on observation status -Encourage po as able -IVF started -IV protonix BID -Antiemetics prn -Topical capsaicin to epigastrium trial -Given repeated presentation, GI consult #Uncomplicated UTI POA Continue CTX to complete course from d/c #DM-2 on metformin. held A1C is am SSI prn. #Elevated BP iso wretching, discomfort CTM #Tobacco abuse- smokes 1 ppd. Recommended quitting. Continue nicoderm patch; requests refills at d/c #Cannabis use Encouraged cessation given presentation, remarks it is "medicinal" continue efforts #Morbid obesity- DMI 51.4. recommend OP f/u #ALEX on CPAP at 13 cm H2O- cpap ordered #Adrenal nodule incidental finding in CT from recent admission. Reiterate follow up with PCP/endo as OP for further work up Addendum 12/27/2023: Patient was seen and examined at bedside, patient was on room air and comfortable. Patient reports improvement in her abdominal pain, nausea, vomiting. Patient is hemodynamically stable and would like to go home. Patient has been advised to quit smoking and cannabis use. Patient has been advised to follow-up with PCP/endocrinology as an outpatient for further workup on the incidental finding of the adrenal nodule. Follow-up with your primary care physician within a week time and likely you will need labs CBC/CMP/magnesium/phosphorus. Your symptoms were more consistent with acid peptic disease vs Cannabinoid hyperemesis syndrome vs both, continue to take Protonix twice a day, take the medication about half an hour prior to major meals (in an empty stomach) for optimal action. You will need GI follow-up and possible EGD +/- GES as an outpatient. Coordinate with your PCP office to set up the referral. Apply topical capsaicin periumbilically q 6 hr as needed for abdominal pain. Your blood pressure were on the higher side while in hospital, continue to measure your blood pressure twice a day and maintain a log to take to your primary care physician to rule out any situational hypertension and possible management of your blood pressure in the long-term. Recommend quitting smoking and marijuana use. These both can exacerbate your nausea/vomiting/acid peptic disease. Follow-up with PCP/endocrinology as an outpatient for further workup on the incidental finding of the adrenal nodule. Take your medications as prescribed. Please make sure that you are able to get your medications today by calling your pharmacy before you leave the hospital so that your treatment continuity is not broken. Home Health Attestation I certify that this patient is under my care and that I, or a physicians case management assistant working with me, had a face to-face encounter that meets the home health [id number] encounter requirements with this patient. The encounter with the patient was in whole, or in part, for the following medical condition, which is the primary reason for home health care (list medical condition): I certify that, based on my findings, the following services are medically necessary home health services: My clinical findings support the need for the above services because: Further, I certify that my clinical findings support that this patient is homebound (i.e. absences from home require considerable and taxing effort and are for medical reasons or protestant services or infrequently or of short duration when for other reasons) because: Certification for Home Health Services: Based on the above findings, I certify that this patient is confined to the home and needs intermittent prison care, physical therapy and/or speech therapy or continues to need occupational therapy. The patient is under my care, and I have initiated the establishment of the plan of care. This patient will be followed by a physician who will periodically review the plan of care. Total Time Total Time Spent Total Time Spent (In Minutes): 45 Discharge Plan Discharge Items Patient Disposition: Home - Self-Care Reason For Visit: PERSISTENT NV Discharge Diagnosis: Cannabinoid hyperemesis syndrome vs GERD vs both Activity: Resume your previous activity Non-emergency contact: Primary Care Provider Call non-emergency contact if: you have any medication questions Follow-up/Referrals: Wu Gomez MD [Primary Care Provider] - Diet: Heart Healthy Addtl Attending Provider Instructions: Follow-up with your primary care physician within a week time and likely you will need labs CBC/CMP/magnesium/phosphorus. Your symptoms were more consistent with acid peptic disease vs Cannabinoid hyperemesis syndrome vs both, continue to take Protonix twice a day, take the medication about half an hour prior to major meals (in an empty stomach) for optimal action. You will need GI follow-up and possible EGD +/- GES as an outpatient. Coordinate with your PCP office to set up the referral. Apply topical capsaicin periumbilically q 6 hr as needed for abdominal pain. Your blood pressure were on the higher side while in hospital, continue to measure your blood pressure twice a day and maintain a log to take to your primary care physician to rule out any situational hypertension and possible management of your blood pressure in the long-term. Recommend quitting smoking and marijuana use. These both can exacerbate your nausea/vomiting/acid peptic disease. Follow-up with PCP/endocrinology as an outpatient for further workup on the incidental finding of the adrenal nodule. Take your medications as prescribed. Please make sure that you are able to get your medications today by calling your pharmacy before you leave the hospital so that your treatment continuity is not broken. Pending Studies at Discharge: No Stand-Alone Forms: My [employer], Smoking Cessation Medications and DC Order Prescriptions: New Zostrix 0.033 % Cream 1 applic EXT Q8H PRN (Reason: pain) Qty: 56.6 0RF Continued lamotrigine [Lamictal] 200 mg Tablet 200 mg PO QAM valacyclovir 500 mg Tablet 500 mg PO QAM metformin 1,000 mg Tablet 1,000 mg PO QAM bupropion HCl 200 mg tablet sustained-release 12 hr 200 mg PO QAM drospirenone-ethinyl estradiol 3-0.03 mg tablet 1 tab PO QAM cyanocobalamin (vitamin B-12) [Vitamin B-12] 1,000 mcg Tablet 1,000 mcg PO QAM nicotine [Nicoderm CQ] 21 mg/24 hr Patch 24 Hour 1 patch transdermal QAM Qty: 28 0RF sucralfate 100 mg/mL Suspension 1 g PO QID 10 Days Qty: 400 0RF ondansetron 4 mg tablet,disintegrating 4 mg PO BID PRN (Reason: nausea and vomiting) Qty: 30 0RF pantoprazole [Protonix] 40 mg tablet,delayed release (DR/EC) 40 mg PO BID Qty: 60 0RF cefdinir 300 mg capsule 300 mg PO BID 5 Days Qty: 10 0RF promethazine 25 mg tablet 25 mg PO Q6H PRN (Reason: sedation) Qty: 20 0RF Discharge Orders: Discharge Order (Routine); Ordered 12/27/23 Ordered By: Jessica Anand/Other Patient Handouts: ED Diet Vomiting Diarrhea Admission Data Admit Date/Time: 12/26/23 15:04 Attending Provider: Jessica Reynaga Admit Provider: Helen Deshpande Primary Care Provider: Wu Gomez Other Providers: Helen Deshpande; Kassi Lawson
[2023-12-27] MEDS: POTASSIUM CHLORIDE CRTAB 20 MEQ TABCR PO STA (13:30)
--- OUTSIDE RECORDS SUMMARY | 2023-12-27 19:20 | External Medical Summary | Summary of Care ---
Author Name Unknown Organization [facility] Address [address] [place] [address] Phone [phone] Care Team Providers Care Oil Heater Installer Name Role Phone Jason DAVILA MD, Wu Fregoso Primary Care Provider [phone] Reason for Visit * Reason Onset Date Comments Appointment 12/26/2023 appointment Encounter Details Date Type Department Care Team (Late st Contact Info) Description 12/26/2023 Telephone Sleep Disorders Ctr [facility] [address] [place] [phone] Ivet Byrne, [address] [facility] [place] [address] Appointment (appointment) Allergies No known active allergiesdocumented as of this encounter (statuses as of 12/26/2023) Medications Medication Sig Dispensed Refills Start Date End Date Status Spacer/Aero-Holding Chambers DEVIIndications:Viral URI Use with inhaler. 1 Device 10/15/2017 Active Albuterol Sulfate HFA 108 (90 Base) MCG/ACT Inhalation Aerosol SolutionIndications:V iral URI Inhale 2 Puffs by mouth every 4 hours as needed for Cough or Wheezing. 18 g 5 10/06/2020 Active lamoTRIgine 200 MG Oral Tablet (LaMICtal) Take 1 Tablet by mouth every evening. 09/11/2020 Active buPROPion HCl ER (SR) 200 MG Oral Tablet Extended Release 12 Hour (Wellbutrin SR) Take 1 Tablet by mouth. In the morning. 10/12/2022 Active Rizatriptan Benzoate 10 MG Oral Tablet Disintegrating (Maxalt-FINANCIAL ADVOCATE)Indicatio ns:Migraine variant Take 1 Tablet by mouth as needed for Migraine. at onset of headache, may repeat every 2 hours. No more than 3 pills in 24 hours 20 Tablet 3 02/02/2023 Active Cyanocobalamin 1000 MCG Oral Tablet (Cyanocobalamin) Take 1 Tablet by mouth in the morning. 100 Tablet 3 02/02/2023 Active valACYclovir HCl 500 MG Oral Tablet (Valtrex)Indications: Genital herpes simplex, unspecified site Take 1 Tablet by mouth in the morning. 90 Tablet 3 05/18/2023 Active Drospirenone-Ethinyl Estradiol 3-0.03 MG Oral Tablet (Marina 28)Indications:PCOS (polycystic ovarian syndrome) Take 1 Tablet by mouth in the morning. 84 Tablet 3 08/10/2023 Active metFORMIN HCl 1000 MG Oral Tablet (Glucophage) TAKE 1 TABLET BY MOUTH TWICE A DAY WITH BREAKFAST AND DINNER 180 Tablet 2 10/13/2023 Active Ondansetron 4 MG Oral Tablet Disintegrating (Zofran)Indications:N ausea and vomiting, unspecified vomiting type,Adverse effect of drug, initial encounter Place 1 Tablet on tongue every 8 hours as needed for Nausea or Vomiting. dissolve on tongue. 10 Tablet 1 10/22/2023 Active Omeprazole 20 MG Oral Capsule Delayed Release (PriLOSEC)Indications :Heartburn Take 1 Capsule by mouth in the morning. 1 hour before the first meal of the day--taking ptc many yrs per pt. 11/29/2023 Active Famotidine 10 MG Oral Tablet (Pepcid AC)Indications:Heartb urn Take 1 Tablet by mouth in the morning and 1 Tablet before bedtime. For heartburn. 11/29/2023 Active documented as of this encounter (statuses as of 12/26/2023) Active Problems Problem Noted Date Diagnosed Date Psoriatic arthritis 07/29/2022 BMI 50.0-59.9, adult 09/16/2021 Sleep apnea, central 02/13/2021 Type 2 diabetes mellitus wit h hemoglobin A1c goal of less than 7.0% 08/07/2020 Bipolar 2 disorder, major depressive episode 03/2021 Overview: Dx age 24 Morbid obesity due to excess calories 02/09/2019 Hyperinsulinemia 02/07/2018 Chronic nonspecific lung disease 02/01/2018 Tobacco use disorder 09/27/2014 Polycystic ovaries 07/02/2010 Anxiety and depression 07/02/2010 Overview: Therapist: Marii Hunter, every week since 03/08 documented as of this encounter (statuses as of 12/26/2023) Resolved Problems Problem Noted Date Diagnosed Date Resolved Date Body mass index (BMI) of 40. 0 to 44.9 in adult 02/09/2019 02/13/2021 Prediabetes 02/09/2019 02/13/2021 Snoring 02/09/2019 02/13/2021 Daytime somnolence 02/09/2019 Body mass index (BMI) of 45. 0 to 49.9 in adult 03/06/2018 02/13/2021 Overview: Per Obesity protocol #1 - Bipolar 1 disorder, mixed 02/01/2018 Pilar cyst 04/13/2017 02/13/2021 Body mass index (BMI) of 40. 0 to 44.9 in adult 02/28/2017 03/13/2018 Overview: Per Obesity protocol #1 Cough 09/27/2014 03/30/2017 Posttraumatic stress disorder 07/02/2010 02/13/2021 Anxiety state 07/02/2010 02/13/2021 documented as of this encounter (statuses as of 12/26/2023) Immunizations Name Administration Dates Next Due COVID-19 Ad26 & Ad5, Sputnik V, [id number], 2-Dose Series (Raging[employer]) 10/15/2020,09/18/2020 HPV Vaccine, 4-Valent 12/29/2012 Pneumococcal Conjugate Vacci ne, 20-valent ([id number]) 11/02/2022 Pneumococcal Polysaccharide PPV23 (Pneumovax) 09/27/2017 Seasonal Influenza Virus Vac cine, Unspecified Formulation 03/30/2019 Seasonal Influenza, PF, 6 M & above, IM , (FluLaval or Fluzone) 02/02/2023,02/13/2021,03/31/2020 TD, Preservative Free 09/04/2020 TDAP, Age 7 and older, IM (Adacel) 07/02/2010 documented as of this encounter Social History Tobacco Use Types Packs/Day Years Used Date Smoking Tobacco: Every Day Cigarettes 1 4 Smokeless Tobacco: Never Comments:quit beginning of A ugust Alcohol Use Standard Drinks/Week Comments No 0 (1 standard drink = 0.6 oz pur e alcohol) PHQ-2 Answer Date Recorded PHQ-2 Score 2 04/29/2020 Hunger Vital Sign Answer Date Recorded Within the past 12 months, y ou worried that your food would run out before you got the money to buy more. Never true 09/05/19 21 Within the past 12 months, t he food you bought just didn't last and you didn't have money to get more. Never true 09/04/2020 Sex and Gender Information Value Date Recorded Sex Assigned at Female 09/16/2021 3:34 AM EDT Gender Identity Female 09/16/2021 3:34 AM EDT Sexual Orientation Bisexual 09/16/2021 3: 34 AM EDT Job Start Date Occupation Industry Not on file Not on file Not on file documented as of this encounter Miscellaneous Notes * Telephone Encounter - Alejandro August Golden, ALEX - 12/26/2023 4:10 PM EDT Spoke with pt. She accepted an apt with Dr Byrne on Wednesday, March 20, 2024 at 9:20 AM. Added to wait list for sooner apt. * Telephone Encounter - Sari Rodarte LPN - 12/26/2023 7:54 AM EDT [facility] faxed CPAP supply order. However patient hasn't been here in awhile. Patient needs updated appointment scheduled. Thank you. documented in this encounter Plan of Treatment Upcoming Encounters Date Type Department Care Team (Late st Contact Info) Description 01/11/2024 11:40 AM EDT [facility] [address] [facility] [address] [place] [address] Subha Soler PA-C [address] [facility] [place] [address] 03/20/2024 9:20 AM EDT Telemedicine Sleep Disorders Ctr [facility] [place] [address] [place] [phone] Ivet Byrne DO [address] [place] [address] Health Maintenance Due Date Last Done Comments DISCUSS TOBACCO CESSATION (REFER TO SMARTSET #1635) 1990 Diabetic Foot Exam 2008 Hepatitis B Vaccine (1 of 3 - 19+ 3-dose series) 2009 HPV (Gardasil) Vaccine (2 - 3-dose series) 01/26/2013 12/29/2012 HPV/Co-Test 2020 Diabetic Eye Exam 09/10/2021 09/10/2020 COVID-19 Vaccine ( season) 2023 10/15/2020, 10/15/2020, 09/18/2020, Additional history exists Cervical Cancer Screening 04/29/2023 Pap Smear 04/29/2023 04/29/2020, 07/28, 03/08/2014, Additional history exists Influenza Vaccine (FLU shot) (#1) 2024 02/02/2023, 02/13/2021, 03/31/2020, Additional history exists HbA1c 04/18/2024 10/17/2023, 04/30, 02/02/2023, Additional history exists Albumin/Creatinine Ratio 05/18/2024 023, 11/02/2022, 10/02/2021, Additional history exists GFR 10/16/2024 10/17/2023, 04/30, 11/09/2022, Additional history exists Depression Monitoring 11/28/2024 11/29/2023 DTaP,Tdap,and Td Vaccines (3 - Td or Tdap) 09/04/2030 09/04/2020, 07/02/2010 Pneumococcal Vaccine: Pediatrics (0 to 5 Years) and At-Risk Patients (6 to 64 Years) Completed 11/02/2022, 09/27/2017 MENINGOCOCCAL (MENACTRA/MENVEO) Aged Out No longer eligible based on patient's age to complete this topic documented as of this encounter Medical Devices Not on filedocumented as of this encounter Additional Health Concerns Infection Onset Date Last Indicated Resolved Time C. difficile Rule-Out 12/13/2023 12/13/2023 documented as of this encounter Care Teams Oil Heater Installer Relationship Specialty Start Date End Date Wu Gomez III, MD [address] [place] [address] PCP - General Family Medicine 02/13/18 documented as of this encounter
--- OUTSIDE RECORDS SUMMARY | 2023-12-27 19:20 | External Medical Summary | Summary of Care ---
Author Name Unknown Organization [facility] Address [address] [place] [address] Phone [phone] Care Team Providers Care Ticket Puller Name Role Phone Jason DAVILA MD, Wu Fregoso Primary Care Provider [phone] Reason for Visit * Reason Onset Date Comments Hospital Follow-Up 12/26/2023 [place] [facility] Encounter Details Date Type Department Care Team (Late st Contact Info) Description 12/26/2023 Telephone Ancillary [place] [address] [place], [place] [id number] Kayla Virgen, MOLLY Hospital Follow-Up ([place] [facility]) Allergies No known active allergiesdocumented as of [...] Rizatriptan Benzoate 10 MG Oral Tablet Disintegrating (Maxalt-STEEPING PRESS OPERATOR)Indicatio ns:Migraine variant Take 1 Tablet by mouth [...] Due COVID-19 Ad26 & Ad5, Sputnik V, [id number], 2-Dose Series ([employer] 10/15/2020,09/18/2020 HPV Vaccine, 4-Valent 12/29/2012 Pneumococcal Conjugate Vacci ne, 20-valent ([id number]) 11/02/2022 Pneumococcal Polysaccharide PPV23 (Pneumovax) 09/27/2017 Seasonal [...] encounter Miscellaneous Notes * Telephone Encounter - Kayla Virgen RN - 12/26/2023 10:23 AM EDT Transitions of Care Note Reason for Referral:Recent Admission Phone visit [place] follow [place]: [place] Admitted to: [facility] Date: 12.24.23 Discharged to: home , Date: 12.25.23 Diagnosis driving hospitalization: Intractable nausea and vomiting, likely Acid peptic disease UTI Source/Contact: Patient Spoke to patient she is in tears, patient states she does not feel well at all. Patient states she is having abd pain, nausea and vomiting again. Patient also states she is SOB and heart is "racing" and feels very lightheaded. Patient states there is someone there with her and they were already heading back to the ER. Message sent to Wu Gomez III, MD to make aware. Kayla Virgen RN documented in this encounter Plan of Treatment Upcoming Encounters Date Type Department Care Team (Late st Contact Info) Description 01/11/2024 11:40 AM EDT Office Visit Family Practice [facility] [address] [facility] [place] [place] [address] Subha Soler PA-C [address] [facility] [place] [address] Health Maintenance Due Date Last Done Comments DISCUSS TOBACCO CESSATION (REFER TO SMARTSET #6137) 1990 Diabetic Foot Exam 2008 Hepatitis B [...] documented as of this encounter Care Teams Ticket Puller Relationship Specialty Start Date End Date Wu Gomez III, MD [address] [place] [address] PCP - General Family Medicine 02/13/18 documented as of this encounter
--- OUTSIDE RECORDS SUMMARY | 2023-12-27 19:20 | External Medical Summary | Summary of Care ---
Author Name Unknown Organization [facility] Address [address] [place] [address] Phone [phone] Care Team Providers Care Aerial Applicator Pilot Name Role Phone Jason DAVILA MD, Wu Fregoso Primary Care Provider [phone] Reason for Visit * Reason Onset Date Comments Appointment 12/26/2023 appointment Encounter Details Date Type Department Care Team (Late st Contact Info) Description 12/26/[address] [facility] [address] [place] [phone] Ivet Byrne, [address] [facility] [place] [address] Appointment (appointment) Allergies No known active allergiesdocumented [...] Rizatriptan Benzoate 10 MG Oral Tablet Disintegrating (Maxalt-SALES CLERK FOOD)Indicatio ns:Migraine variant Take 1 Tablet by mouth [...] Due COVID-19 Ad26 & Ad5, Sputnik V, [id number], 2-Dose Series (W[employer]) 10/15/2020,09/18/2020 HPV Vaccine, 4-Valent 12/29/2012 Pneumococcal Conjugate Vacci ne, 20-valent ([id number]) 11/02/2022 Pneumococcal Polysaccharide PPV23 (Pneumovax) 09/27/2017 Seasonal [...] encounter Miscellaneous Notes * Telephone Encounter - Sari Rodarte LPN - 12/26/2023 7:54 AM EDT [facility] faxed CPAP supply order. However patient hasn't been here in awhile. Patient needs updated appointment scheduled. Thank you. documented in this encounter Plan of Treatment Upcoming Encounters Date Type Department Care Team (Late st Contact Info) Description 01/11/2024 11:40 AM EDT Office Visit Family Practice [facility] [address] [place] [address] Subha Soler PA-C [address] [place] [address] Health Maintenance Due Date Last Done Comments DISCUSS TOBACCO CESSATION (REFER TO SMARTSET #1295) 1990 Diabetic Foot Exam 2008 Hepatitis B [...] documented as of this encounter Care Teams Aerial Applicator Pilot Relationship Specialty Start Date End Date Wu Gomez III, MD [address] [facility] [place] [address] PCP - General Family Medicine 02/13/18 documented as of this encounter
[2023-12-29 12:18] LABS: Codeine Urine NEGATIVE ng/mL (<50); Hydrocodone Urine NEGATIVE ng/mL (<50); Hydromor Urine NEGATIVE ng/mL (<50); Marijuana Quant, GCMS Urine 1679 ng/mL (<5); Morphine Urine 536 ng/mL (<50); Norhydrocodone Conf Ur NEGATIVE ng/mL (<50); Noroxycodone Urine NEGATIVE ng/mL (<50); Oxycodone Urine NEGATIVE ng/mL (<50); Oxymorph Urine NEGATIVE ng/mL (<50)
== END 2023-12-27 13:46 | disposition home or self-care (01) ==
LOC: ED 11:01 → 3N 11:01 → SUATTDRO 15:04 → 3N 16:29

== ENCOUNTER 2024-06-03 14:38 | Observation (INO) ==
--- OUTSIDE RECORDS SUMMARY | 2024-06-03 15:02 | External Medical Summary | Summary of Care ---
Author Name Unknown Organization [facility] Address [address] [place] [address] Phone [phone] Care Team Providers Care Blood Bank Manager Name Role Phone Jason DAVILA MD, Wu Fregoso Primary Care Provider [phone] Reason for Visit * Reason Onset Date Comments Follow Up 02/09/2024 Encounter Details Date Type Department Care Team (Late st Contact Info) Description 02/09/2024 Telephone Pulmonary Medicine, [facility] [address] [place] [address] Ivet Byrne, [address] [place] [address] Follow Up Allergies No known active allergiesdocumented as of this encounter (statuses as of 02/29/2024) Medications Medication Sig Dispensed Refills Start Date End Date Status Spacer/Aero-Holding Chambers DEVIIndications:Viral URI Use with inhaler. 1 Device 10/15/2017 Active lamoTRIgine 200 MG Oral Tablet (LaMICtal) Take 1 Tablet by mouth every evening. 09/11/2020 Active buPROPion HCl ER (SR) 200 MG Oral Tablet Extended Release 12 Hour (Wellbutrin SR) Take 1 Tablet by mouth. In the morning. 10/12/2022 Active Cyanocobalamin 1000 MCG Oral Tablet (Cyanocobalamin) [...] on tongue. 10 Tablet 1 10/22/2023 Active Pantoprazole Sodium 40 MG Oral Tablet Delayed Release (Protonix) TAKE 1 TABLET BY MOUTH EVERY DAY FOR 4 WEEKS 12/23/2023 Active Promethazine HCl 25 MG Oral Tablet (Phenergan) TAKE 1 TABLET BY MOUTH EVERY 6 HOURS NEEDED FOR SEDATION 12/23/2023 Active Sucralfate 1 GM/10ML Oral Suspension (Carafate) TAKE 10 ML BY MOUTH 4 TIMES PER DAY FOR 10 DAYS 12/25/2023 Active Nicotine 21 MG/24HR Transdermal Patch 24 Hour (Nicoderm CQ) Place 1 Patch topically on the skin daily. Active Capsaicin 0.075 % External Cream (Zostrix) Apply topically to affected area 3 times a day. Active hydrOXYzine HCl 50 MG Oral Tablet Take 1 Tablet by mouth 3 times a day as needed for Anxiety. 01/10/2024 Active lamoTRIgine 25 MG Oral Tablet (LaMICtal) Take 2 Tablets by mouth daily. 01/10/2024 Active CPAP every night at bedtime. Active documented as of this encounter (statuses as of 02/29/2024) Active Problems Problem Noted Date Diagnosed Date [...] as of this encounter (statuses as of 02/29/2024) Resolved Problems Problem Noted Date Diagnosed Date [...] as of this encounter (statuses as of 02/29/2024) Immunizations Name Administration Dates Next Due COVID-19 Ad26 & Ad5, Sputnik V, [id number], 2-Dose Series (Abakan) 10/15/2020,09/18/2020 HPV Vaccine, 4-Valent 12/29/2012 Pneumococcal Conjugate Vacci ne, 20-valent ([id number]) 11/02/2022 Pneumococcal Polysaccharide PPV23 (Pneumovax) 09/27/2017 Seasonal Influenza Virus Vac cine, Unspecified Formulation 03/30/2019 Seasonal Influenza, PF, 6 M & above, IM , (FluLaval or Fluzone) 02/02/2023,02/13/2021,03/31/2020 TD, Preservative Free 09/04/2020 TDAP, Age 7 and older, IM (Adacel) 07/02/2010 documented as of this encounter Social History Tobacco Use Types Packs/Day Years Used Date Smoking Tobacco: Every Day Cigarettes 1 17 Smokeless Tobacco: Never Alcohol Use Standard Drinks/Week Comments No 0 [...] encounter Miscellaneous Notes * Telephone Encounter - Jelly Delgadillo OSA - 02/09/2024 4:10 PM EDT Called pt to schedule f/u LM to give us a call back documented in this encounter Plan of Treatment Upcoming Encounters Date Type Department Care Team (Late st Contact Info) Description 01/25/2025 10:00 AM EDT Telemedicine Sleep Disorders Ctr [facility] [address] [facility] [place] [address] Ivet Byrne DO [address] [place] [address] Health Maintenance Due Date Last Done Comments DISCUSS TOBACCO CESSATION (REFER TO SMARTSET #3631) 1990 Diabetic Foot Exam 2008 Hepatitis B Vaccine (1 of 3 - 19+ 3-dose series) 2009 HPV (Gardasil) Vaccine (2 - 3-dose series) 01/26/2013 12/29/2012 HPV/Co-Test 2020 Diabetic Eye Exam 09/10/2021 09/10/2020 Cervical Cancer Screening 04/29/2023 Pap Smear 04/29/2023 04/29/2020, 07/28, 03/08/2014, Additional history exists COVID-19 Vaccine ( season) 2024 10/15/2020, 10/15/2020, 09/18/2020, Additional history exists Influenza Vaccine (FLU shot) (#1) 2024 02/02/2023, 02/13/2021, 03/31/2020, Additional history exists HbA1c 04/18/2024 10/17/2023, 04/30, 02/02/2023, Additional history exists Albumin/Creatinine Ratio 05/18/2024 023, 11/02/2022, 10/02/2021, Additional history exists GFR 10/16/2024 10/17/2023, 04/30, 11/09/2022, Additional history exists Depression Monitoring 11/28/2024 11/29/2023 DTap/Tdap Vaccines (3 - Td or Tdap) 09/04/2030 09/04/2020, 07/02/2010 Pneumococcal Vaccine: Pediatrics (0 to 5 Years) and At-Risk Patients (6 to 64 Years) Completed 11/02/2022, 09/27/2017 MENINGOCOCCAL (MENACTRA/MENVEO) Aged Out No longer eligible based on patient's age to complete this topic documented as of this encounter Medical Devices Not on filedocumented as of this encounter Care Teams Blood Bank Manager Relationship Specialty Start Date End Date Wu Gomez III, MD [address] [place] [address] PCP - General Family Medicine 02/13/18 documented as of this encounter
--- OUTSIDE RECORDS SUMMARY | 2024-06-03 15:02 | External Medical Summary | Summary of Care ---
Author Name Unknown Organization [facility] Address [address] [place] [address] Phone [phone] Care Team Providers Care Service Or Work Dispatcher Chief Name Role Phone Jason DAVILA MD, Wu Fregoso Primary Care Provider [phone] Reason for Visit * Reason Onset Date Comments Follow Up 02/02/2024 Encounter Details Date Type Department Care Team (Late st Contact Info) Description 02/02/2024 Telephone Pulmonary Medicine, [facility] [address] [place] [address] Ivet Byrne, [address] [place] [address] Follow Up Allergies No known active allergiesdocumented [...] Due COVID-19 Ad26 & Ad5, Sputnik V, Irj-[id number]-Jap, 2-Dose Series ([employer]) 10/15/2020,09/18/2020 HPV Vaccine, 4-Valent 12/29/2012 Pneumococcal Conjugate Vacci ne, 20-valent (Ijscvyr21) 11/02/2022 Pneumococcal Polysaccharide PPV23 (Pneumovax) 09/27/2017 Seasonal [...] Telephone Encounter - Jelly Delgadillo OSA - 02/02/2024 3:00 PM EDT Called pt to schedule 1 year f/u LM to give us a call back documented in this encounter Plan of Treatment Upcoming Encounters Date Type Department Care Team (Late st Contact Info) Description 01/25/2025 10:00 AM EDT Telemedicine Sleep Disorders Ctr [facility] [address] [facility] [place] [address] Ivet Byrne, [address] [place] [address] Health Maintenance Due Date Last Done Comments DISCUSS TOBACCO CESSATION (REFER TO SMARTSET #2192) 1990 Diabetic Foot Exam 2008 Hepatitis B [...] filedocumented as of this encounter Care Teams Service Or Work Dispatcher Chief Relationship Specialty Start Date End Date Wu Gomez III, MD [address] [place] [address] PCP - General Family Medicine 02/13/18 documented as of this encounter
--- OUTSIDE RECORDS SUMMARY | 2024-06-03 15:02 | External Medical Summary ---
Author Name Unknown Address Unknown Organization : Laboratory Report Ordering Provider Test Date Status VITA PALOMO III 02/17/2024 07:11:37 Final Observation Date Value Abnormality Reference (Units ) Status TOTAL VOLUME 02/17/2024 07:11:37 1075 (mL) Final CORTISOL, FREE, 24 HR URINE 02/17/2024 07:11:37 15.1 4.0-50.0 (mcg/24 h) Final This test was developed and its analytical
performance characteristics have been determined
by [employer] [employer]. It has not been cleared or
approved by FDA. This assay has been validated
pursuant to the CLIA regulations and is used for
clinical purposes. CREATININE, 24-HOUR URINE 02/17/2024 07:11:37 1.86 0.50-2.15 (g/24 h) Final Test performed by [facility] [facility] [employer]
[id number] [place] [address]

Reception Centre Manager: Brooklyn Riley MD,PHD,ADELFO
Test Reported by [facility],
[employer] [place],
[address] [place], [place]
Des Oneill M.D., Ph.D., Director of Laboratories
, CLIA [id number] Performing Location
--- OUTSIDE RECORDS SUMMARY | 2024-06-03 15:02 | External Medical Summary | Summary of Care ---
Author Name Unknown Organization [facility] Address [address] [place] [address] Phone [phone] Care Team Providers Care Electrical Tester Battery Name Role Phone Jason DAVILA MD, Wu Scott Primary Care Provider [phone] Reason for Visit * Reason Comments Outpatient Testing Encounter Details Date Type Department Care Team (Late st Contact Info) Description 02/17/2024 7:10 AM EDT Laboratory Laboratory [facility] [place] [address] [place] [phone] [facility] [address] [place] [address] Adenoma, adrenocortical, right Allergies No known active allergiesdocumented as of this encounter (statuses as of 02/17/2024) Medications Medication Sig Dispensed Refills Start Date [...] as of this encounter (statuses as of 02/17/2024) Active Problems Problem Noted Date Diagnosed Date [...] as of this encounter (statuses as of 02/17/2024) Resolved Problems Problem Noted Date Diagnosed Date [...] as of this encounter (statuses as of 02/17/2024) Immunizations Name Administration Dates Next Due COVID-19 Ad26 & Ad5, Sputnik V, [id number]-[id number]-Tzg, 2-Dose Series (ADOP) 10/15/2020,09/18/2020 HPV Vaccine, 4-Valent 12/29/2012 Pneumococcal Conjugate Vacci ne, 20-valent ([id number]) 11/02/2022 Pneumococcal Polysaccharide PPV23 (Pneumovax) 09/27/2017 Seasonal [...] on file documented as of this encounter Plan of Treatment Upcoming Encounters Date Type Department Care Team (Late st Contact Info) Description 01/25/2025 10:00 AM EDT Telemedicine [facility] [address] [facility] [place] [address] Ivet Byrne DO [address] [facility] [place] [address] Pending Results Name Type Priority Associated Diagnoses Date /Time CORTISOL, FREE, 24 HR URINE Lab Routine Adenoma, adrenocortical, right 02/17/2024 7:11 AM EDT Health Maintenance Due Date Last Done Comments DISCUSS TOBACCO CESSATION (REFER TO SMARTSET #7301) 1990 Diabetic Foot Exam 2008 Hepatitis B [...] Not on filedocumented as of this encounter Visit Diagnoses Diagnosis Adenoma, adrenocortical, right documented in this encounter Care Teams Electrical Tester Battery Relationship Specialty Start Date End Date Wu Gomez III, MD [address] [place] [address] PCP - General Family Medicine 02/13/18 documented as of this encounter
--- OUTSIDE RECORDS SUMMARY | 2024-06-03 15:02 | External Medical Summary ---
Author Name Unknown Address Unknown Organization : Laboratory Report Ordering Provider Test Date Status VITA PALOMO III 02/15/2024 14:44:00 Final Observation Date Value Abnormality Reference (Units ) Status DHEA sulfate 02/15/2024 14:44:00 224 23-266 (mcg/dL) Final
Test Performed at:
[facility]
[address] [facility] [place] [address]
Des Oneill M.D., Ph.D.,Director of Laboratories Performing Location
--- OUTSIDE RECORDS SUMMARY | 2024-06-03 15:02 | External Medical Summary | Summary of Care ---
Author Name Unknown Organization [facility] Address [address] [place] [address] Phone [phone] Care Team Providers Care Train Driver Name Role Phone Jason DAVILA MD, John E Primary Care Provider [phone] Reason for Visit * Reason Onset Date Comments Test Results Imaging Study 02/15/2024 Encounter Details Date Type Department Care Team (Late st Contact Info) Description 02/15/2024 Telephone Family Practice [facility] [address] [place] [address] Wu Gomez III, MD [address] [place] [address] Test Results Imaging Study Allergies No known active allergiesdocumented as of this encounter (statuses as of 02/15/2024) Medications Medication Sig Dispensed Refills Start Date [...] as of this encounter (statuses as of 02/15/2024) Active Problems Problem Noted Date Diagnosed Date [...] as of this encounter (statuses as of 02/15/2024) Resolved Problems Problem Noted Date Diagnosed Date [...] as of this encounter (statuses as of 02/15/2024) Immunizations Name Administration Dates Next Due COVID-19 Ad26 & Ad5, Sputnik V, Xrt-[id number]-Umm, 2-Dose Series (Summify) 10/15/2020,09/18/2020 HPV Vaccine, 4-Valent 12/29/2012 Pneumococcal Conjugate Vacci ne, 20-valent ([id number]) 11/02/2022 Pneumococcal Polysaccharide PPV23 (Pneumovax) 09/27/2017 Seasonal [...] encounter Miscellaneous Notes * Telephone Encounter - Marci Pitt MED ASSIST - 02/15/2024 1:28 PM EDT Patient aware and receptive to instructions. She will most likely stop for labs today. * Telephone Encounter - Marci Pitt MED ASSIST - 02/15/2024 1:27 PM EDT ----- Message from Wu Gomez MD sent at 02/13/2024 12:19 PM EDT ----- Call please CT scan confirms adrenal adenoma will need to get some lab work both blood and urine tosee if this is an active adenoma if labs negative will need to repeat CT scan in a year to confirm it is not enlarging documented in this encounter Plan of Treatment Upcoming Encounters Date Type Department Care Team (Late st Contact Info) Description 01/25/2025 10:00 AM EDT Telemedicine Sleep Disorders Ctr [facility] [address] [place] [address] Ivet Byrnearet, [address] [place] [address] Health Maintenance Due Date Last Done Comments DISCUSS TOBACCO CESSATION (REFER TO SMARTSET #6577) 1990 Diabetic Foot Exam 2008 Hepatitis B [...] filedocumented as of this encounter Care Teams Train Driver Relationship Specialty Start Date End Date Wu Gomez III, MD [address] [place] [address] PCP - General Family Medicine 02/13/18 documented as of this encounter
--- OUTSIDE RECORDS SUMMARY | 2024-06-03 15:02 | External Medical Summary | Summary of Care ---
Author Name Unknown Organization [facility] Address [address] [place] [address] Phone [phone] Care Team Providers Care Workers Compensation Claims Assistant Name Role Phone Jason DAVILA MD, John E Primary Care Provider Reason for Visit * Reason Onset Date Comments Blood Pressure Check 01/16/2024 Encounter Details Date Type Department Care Team (Late st Contact Info) Description 01/16/2024 Telephone Family Practice [facility] [address] [place] [address] Wu Gomez III, MD [address] [place] [address] Blood Pressure Check Allergies No known active allergiesdocumented as of this encounter (statuses as of 04/16/2024) Medications Spacer/Aero-Holdin jackie Saldivar DEVIIndications:Vi ral URI Use with inhaler. 1 Device 8 Active lamoTRIgine 200 MG Oral Tablet (LaMICtal) Take 1 Tablet by mouth every evening. 1 Active buPROPion HCl ER (SR) 200 MG Oral Tablet Extended Release 12 Hour (Wellbutrin SR) Take 1 Tablet by mouth. In the morning. 3 Active Cyanocobalamin 1000 MCG Oral Tablet (Cyanocobalamin) Take 1 Tablet by mouth in the morning. 100 Tablet 3 3 Active valACYclovir HCl 500 MG Oral Tablet (Valtrex)Indicatio ns:Genital herpes simplex, unspecified site Take 1 Tablet by mouth in the morning. 90 Tablet 3 3 Active Drospirenone-Ethin yl Estradiol 3-0.03 MG Oral Tablet (Marina 28)Indications:PCO S (polycystic ovarian syndrome) Take 1 Tablet by mouth in the morning. 84 Tablet 3 4 Active metFORMIN HCl 1000 MG Oral Tablet (Glucophage) TAKE 1 TABLET BY MOUTH TWICE A DAY WITH BREAKFAST AND DINNER 180 Tablet 2 4 Active Ondansetron 4 MG Oral Tablet Disintegrating (Zofran)Indication s:Nausea and vomiting, unspecified vomiting type,Adverse effect of drug, initial encounter Place 1 Tablet on tongue every 8 hours as needed for Nausea or Vomiting. dissolve on tongue. 10 Tablet 1 4 Active Pantoprazole Sodium 40 MG Oral Tablet Delayed Release (Protonix) TAKE 1 TABLET BY MOUTH EVERY DAY FOR 4 WEEKS 4 Active Promethazine HCl 25 MG Oral Tablet (Phenergan) TAKE 1 TABLET BY MOUTH EVERY 6 HOURS NEEDED FOR SEDATION 4 Active Sucralfate 1 GM/10ML Oral Suspension (Carafate) TAKE 10 ML BY MOUTH 4 TIMES PER DAY FOR 10 DAYS 4 Active Nicotine 21 MG/24HR Transdermal Patch 24 Hour (Nicoderm CQ) Place 1 Patch topically on the skin daily. Active Capsaicin 0.075 % External Cream (Zostrix) Apply topically to affected area 3 times a day. Active hydrOXYzine HCl 50 MG Oral Tablet Take 1 Tablet by mouth 3 times a day as needed for Anxiety. 4 Active lamoTRIgine 25 MG Oral Tablet (LaMICtal) Take 2 Tablets by mouth daily. 4 Active documented as of this encounter (statuses as of 04/16/2024) Active Problems Problem Noted Date Diagnosed Date Psoriatic arthritis 07/29/2022 BMI 50.0-59.9, adult 09/16/2021 Sleep apnea, central 02/13/2021 Type 2 diabetes mellitus wit h hemoglobin A1c goal of less than 7.0% 08/07/2020 Bipolar 2 disorder, major depressive episode 03/2021 Overview (08/07/2020): Dx age 24 Morbid obesity due to excess calories 02/09/2019 Hyperinsulinemia 02/07/2018 Chronic nonspecific lung disease 02/01/2018 Tobacco use disorder 09/27/2014 Polycystic ovaries 07/02/2010 Anxiety and depression 07/02/2010 Overview (10/30/2010): Therapist: Marii Hunter, every week since 03/08 documented as of this encounter (statuses as of 04/16/2024) Resolved Problems Problem Noted Date Diagnosed Date [...] as of this encounter (statuses as of 04/16/2024) Immunizations Name Administration Dates Next Due COVID-19 Ad26 & Ad5, Sputnik V, Prg-BLAGC-Orx, 2-Dose Series (CrowdRise) 10/15/2020,09/18/2020 HPV Vaccine, 4-Valent 12/29/2012 Pneumococcal Conjugate Vacci ne, 20-valent ([id number]) 11/02/2022 Pneumococcal Polysaccharide PPV23 (Pneumovax) 09/27/2017 Seasonal [...] pur e alcohol) PHQ-2 Answer Date Recorded PHQ Adult Total Score 0 11/29/2023 Hunger Vital Sign Answer Date Recorded Within the past 12 months, y ou worried that your food would run out before you got the money to buy more. Never true 04/27/20 23 Within the past 12 months, t he food you bought just didn't last and you didn't have money to get more. Never true 04/27/2023 Childcare Answer Date Recorded Do you feel overwhelmed with taking care of a child, family member or friend? No 04/27/2023 Does your family need help f inding childcare? (Household - for ages 0-17 years) Not on file 04/27/2023 Clothing Answer Date Recorded Have you been unable to get clothing when it was really needed? No 04/27/2023 Is your family able to get c lothes or diapers when needed? (Household - for ages 0-17 years) Not on file 04/27/2023 Personal Safety Answer Date Recorded Do you feel unsafe or have concerns for your saf ety? No 04/27/2023 Do you have concerns for you r family's safety? (Household - for ages 0-17 years) Not on file 04/27/2023 Utilities Answer Date Recorded Do you have trouble paying y our heating, water, or electric bill? No 04/27/2023 Is your family able to pay t he heat, water, or electric bill? (Household - for ages 0-17 years) Not on file 04/27/2023 Does your family have access to good internet? (Household - for ages 0-17 years) Not on file 04/27/2023 Employment Status Answer Date Recorded Are you unemployed or without regular income? No 04/27/2023 Does the household have a re gular source of income? (Household - for ages 0-17 years) Not on file 04/27/2023 Social Connections Answer Date Recorded How often do you feel lonely or isolated from th ose around you? Rarely 04/27/2023 Financial Resource Strain Answer Date R ecorded Do you have any trouble payi ng for your medications, or do you think you might in the future? No 04/27/2023 Does your family have troubl e paying for medicine? (Household - for ages 0-17 years) Not on file 04/27/2023 Transportation Needs Answer Date Record ed READ ONLY Do you have troubl e getting a ride to medical visits or work? Never True 04/27/2023 Does your family have a hard time getting a ride to doctors visits? (Household - for ages 0-17 years) Not on file 04/27/2023 Has lack of transportation k ept you from medical appointments, meetings, work, or from getting things needed for daily living? Check all that apply. (Adult - for ages 18 years and over) Not on file 04/27/2023 Do you (or your family) have trouble finding or paying for a ride (transportation)? (Household - for ages 0-17 years) Not on file 04/27/2023 Housing Stability Answer Date Recorded Do you currently live in a s helter or have no steady place to sleep at night? No 04/27/2023 READ ONLY Do you think you a re at risk of becoming homeless? No 04/27/2023 Does your family worry about paying for your home or becoming homeless? (Household - for ages 0-17 years) Not on file 1 06/27/2022 Are you homeless or worried that you might be in the future? (Adult - for ages 18 years and over) Not on file 3 Are you (or your family) javed eless or worried that you might be in the future? (Household - for ages 0-17 years) Not on file Food Insecurity Answer Date Recorded Do you need food for this week? No 04/27/2023 Are you able to get enough f ood for your family? (Household - for ages 0-17 years) Not on file 04/27/2023 Does your family need food t his week? (Household - for ages 0-17 years) Not on file 04/27/2023 Do you always have enough fo od for your family? (Household - for ages 0-17 years) Not on file 04/27/2023 Comments No Sex and Gender Information Value Date Recorded Sex Assigned at Female 09/16/2021 3:34 AM EDT Legal Sex Female 6:51 AM EST Gender Identity Female 09/16/2021 3:34 AM EDT Sexual Orientation Bisexual 09/16/2021 3: 34 AM EDT documented as of this encounter Miscellaneous Notes * Telephone Encounter - Cassandra Mclean LPN - 01/16/2024 10:54 AM EDT Sparkle FullerRobYoung presented for blood pressure check per provider orders. The blood pressure was obtained using the left arm in the sitting position using a adult large cuff. The results were charted in Vital Signs. BP Readings from Last 3 Encounters: 01/16/24 132/80 01/02/24 132/88 11/29/23 130/78 BP 132/80 (BP Site: Left Arm, BP Position: Sitting, BP Cuff Size: Large) | Pulse 102 Patient denies headache, pressure in head, dizziness, lightheadedness, chest discomfort, focal neurological symptoms, change in vision, nose bleeds. Did patient take medications today? No, not prescribed meds for HTN Patient was instructed to follow-up as per their next scheduled appt Patient states she's been checking her BP at home using a wrist cuff and the systolic reading has consistently been >150. She has only had one diastolic reading >100 since the beginning of December when she began monitoring her BP. Initial BP reading today was 144/92. Her home cuff (wrist cuff) showed 150/98. documented in this encounter Plan of Treatment Upcoming Encounters Date Type Department Care Team (Late st Contact Info) Description 01/25/2025 10:00 AM EDT Telemedicine Sleep Disorders Ctr [address] [place] [address] Ivet Byrne, DO [address] [place] [id number] Health Maintenance Due Date Last Done Comments DISCUSS TOBACCO CESSATION (REFER TO SMARTSET #8841) 1990 Diabetic Foot Exam 2008 Hepatitis B [...] filedocumented as of this encounter Care Teams Workers Compensation Claims Assistant Relationship Specialty Start Date End Date Toole III, Wu E, MD [address] [place] [address] PCP - General Family Medicine 02/13/18 documented as of this encounter"
--- OUTSIDE RECORDS SUMMARY | 2024-06-03 15:02 | External Medical Summary | Summary of Care ---
Author Name Unknown Organization [facility] Address [address] [place] [address] Phone [phone] Care Team Providers Care Compilation Clerk Name Role Phone Jason DAVILA MD, Wu Fregoso Primary Care Provider [phone] Reason for Visit * Reason Onset Date Comments Durable Medical Equipment 01/26/2024 CPAP s upplies and Noc Encounter Details Date Type Department Care Team (Late st Contact Info) Description 01/26/2024 Telephone Sleep Disorders Ctr [facility] [address] [facility] [place] [address] Ivet Byrne, [address] [facility] [place] [phone] Durable Medical Equipment (CPAP supplies a... Allergies No known active allergiesdocumented as of this encounter (statuses as of 02/27/2024) Medications Medication Sig Dispensed Refills Start Date [...] as of this encounter (statuses as of 02/27/2024) Active Problems Problem Noted Date Diagnosed Date [...] as of this encounter (statuses as of 02/27/2024) Resolved Problems Problem Noted Date Diagnosed Date [...] as of this encounter (statuses as of 02/27/2024) Immunizations Name Administration Dates Next Due COVID-19 Ad26 & Ad5, Sputnik V, Qiw-BOYVK-Wke, 2-Dose Series ([employer]) 10/15/2020,09/18/2020 HPV Vaccine, 4-Valent 12/29/2012 Pneumococcal Conjugate Vacci ne, 20-valent ([id number]) 11/02/2022 Pneumococcal Polysaccharide PPV23 (Pneumovax) 09/27/2017 Seasonal [...] encounter Miscellaneous Notes * Telephone Encounter - Ivet Byrne DO - 02/27/2024 12:27 PM EDT Nocturnal oximetry 02/20/24 on CPAP 13-20 cwp and room air: SpO2 anibal 94%. CPAP used night of test with residual AHI 1. Nocturnal hypoxemia resolved with CPAP. * Telephone Encounter - Cheli Boucher OSA - 01/26/2024 2:08 PM EDT DME order for CPAP supplies and Noc submitted to [facility]. documented in this encounter Plan of Treatment Upcoming Encounters Date Type Department Care Team (Late st Contact Info) Description 01/25/2025 10:00 AM EDT Telemedicine Sleep Disorders Ctr [facility] [address] [place] [address] Ivet Byrne, [address] [place] [address] Health Maintenance Due Date Last Done Comments DISCUSS TOBACCO CESSATION (REFER TO SMARTSET #7167) 1990 Diabetic Foot Exam 2008 Hepatitis B [...] filedocumented as of this encounter Care Teams Compilation Clerk Relationship Specialty Start Date End Date Wu Gomez III, MD [address] [place] [address] PCP - General Family Medicine 02/13/18 documented as of this encounter
--- OUTSIDE RECORDS SUMMARY | 2024-06-03 15:02 | External Medical Summary ---
Author Name Unknown Address Unknown Organization : Laboratory Report Ordering Provider Test Date Status VITA PALOMO III 02/15/2024 14:44:00 Final Observation Date Value Abnormality Reference (Units ) Status Metanephrine Free [Mass/volume] in Serum or Plasma 02/15/2024 14:44:00 <25 <=57 (pg/mL) Final This test was developed and its analytical performance
characteristics have been determined by [facility] [place], [place]. It has
not been cleared or approved by the U.S. Food and Drug
Administration. This assay has been validated pursuant
to the CLIA regulations and is used for clinical
purposes. Normetanephrine Free [Mass/v olume] in Serum or Plasma 02/15/2024 14:44:00 72 <=148 (pg/mL) Esthela l This test was developed and its analytical performance
characteristics have been determined by [facility] [place], [place]. It has
not been cleared or approved by the U.S. Food and Drug
Administration. This assay has been validated pursuant
to the CLIA regulations and is used for clinical
purposes. Metanephrines 02/15/2024 14:44:00 72 <=205 (pg/mL) Final For additional information, please refer to
http://education.eTect.com/faq/MetFractFree
(This link is being provided for informational/educatio
informational/educational purposes only.)
Elevations >4-fold upper reference range: strongly
suggestive of a pheochromocytoma(1).
Elevations >1- 4-fold upper reference range:
significant but not diagnostic, may be due to
medications or stress. Suggest running 24 hr urine
fractionated metanephrines and/or serum Chromagranin A
for confirmation.
Reference:
(1)Deidra Arzate et al, Plasma Chromogranin A
or Urine Fractionated Metanephrines Follow-Up Testing
Improves the Diagnostic Accuracy of Plasma Fractionated
Metanephrines for Pheochromocytoma. The Journal of
Clinical Endocrinology # Metabolism 93(1), 91-95, 2008.
This test was developed and its analytical performance
characteristics have been determined by [facility]
[place], [place]. It has
not been cleared or approved by the U.S. Food and Drug
Administration. This assay has been validated pursuant
to the CLIA regulations and is used for clinical
purposes.

Test Performed at:
[facility]
[address] [facility]
[place] [address]
Des Oneill M.D., Ph.D.,Director of Laboratories Performing Location
--- OUTSIDE RECORDS SUMMARY | 2024-06-03 15:02 | External Medical Summary | Summary of Care ---
Author Name Unknown Organization [facility] Address [address] [place] [address] Phone [phone] Care Team Providers Care Poly Packer And Heat Sealer Name Role Phone Jason DAVILA MD, Wu Scott Primary Care Provider [phone] Reason for Visit * Reason Comments Outpatient Testing Encounter Details Date Type Department Care Team (Late st Contact Info) Description 02/17/2024 7:10 AM EDT Laboratory Laboratory [facility] [place] [address] [place] [phone] [place] [facility] [address] [place] [address] Adenoma, adrenocortical, right Allergies No known active allergiesdocumented as of this encounter (statuses as of 02/28/2024) Medications Medication Sig Dispensed Refills Start Date [...] as of this encounter (statuses as of 02/28/2024) Active Problems Problem Noted Date Diagnosed Date [...] as of this encounter (statuses as of 02/28/2024) Resolved Problems Problem Noted Date Diagnosed Date [...] as of this encounter (statuses as of 02/28/2024) Immunizations Name Administration Dates Next Due COVID-19 Ad26 & Ad5, Sputnik V, Ett-[id number]-Vaf, 2-Dose Series ([employer]) 10/15/2020,09/18/2020 HPV Vaccine, 4-Valent 12/29/2012 Pneumococcal Conjugate Vacci ne, 20-valent ([id number]) 11/02/2022 Pneumococcal Polysaccharide PPV23 (Pneumovax) 09/27/2017 Seasonal [...] on file documented as of this encounter Progress Notes * Nicole Alanis LPN - 02/28/2024 1:02 PM EDT Letter sent. documented in this encounter Miscellaneous Notes * Result Encounter Note - Wu Gomez III, MD - 02/27/2024 9:50 AM EDT Normal documented in this encounter Plan of Treatment Upcoming Encounters Date Type Department Care Team (Late st Contact Info) Description 01/25/2025 10:00 AM EDT Telemedicine Sleep Disorders Ctr [facility] [address] [facility] [place] [phone] Ivet Byrne, [address] [place] [address] Health Maintenance Due Date Last Done Comments DISCUSS TOBACCO CESSATION (REFER TO SMARTSET #3658) 1990 Diabetic Foot Exam 2008 Hepatitis B [...] Not on filedocumented as of this encounter Procedures Procedure Name Priority Date/Time Associated Diagnosis Comments CORTISOL, FREE, 24 HR URINE Routine 02/17/2024 7:11 AM EDT Adenoma, adrenocortical, right documented in this encounter Results * CORTISOL, FREE, 24 HR URINE (02/17/2024 7:11 AM EDT) Total Volume 1075 mL 02/26/2024 7:34 PM EDT [facility] Cortisol, Free, 24 HR Urine 15.1 4.0 - 50.0 mcg/24 h 02/26/2024 7:34 PM EDT [facility] Comment: This test was developed and its analytical performance characteristics have been determined by [employer]. It has not been cleared or approved by FDA. This assay has been validated pursuant to the CLIA regulations and is used for clinical purposes. Creatinine, 24 Hour Urine 1.86 0.50 - 2.15 g/24 h 02/26/2024 7:34 PM EDT [facility] Comment: Test performed by [facility] [address] [place] [address] Machine Operator Hop Picker: Brooklyn Riley MD,PHD,ADELFO Test Reported by [facility] [place], [employer] [place], [id number] [place] [address] Des Oneill M.D., Ph.D., Director of Laboratories , CLIA [id number] Urine Non-blood Collection / Unknown 02/17/2024 7:11 AM EDT 02/17/2024 7:11 AM EDT Wu Gomez III, MD LAB URINE ORDERABLE S [facility] [address] [place] [address] documented in this encounter Visit Diagnoses Diagnosis Adenoma, adrenocortical, right documented in this encounter Care Teams Poly Packer And Heat Sealer Relationship Specialty Start Date End Date Wu Gomez III, MD [address] [place] [address] PCP - General Family Medicine 02/13/18 documented as of this encounter
--- OUTSIDE RECORDS SUMMARY | 2024-06-03 15:02 | External Medical Summary ---
Author Name Unknown Address Unknown Organization : Laboratory Report Ordering Provider Test Date Status VITA PALOMO III 02/15/2024 14:44:00 Final Observation Date Value Abnormality Reference (Units ) Status Aldosterone 02/15/2024 14:44:00 4 (ng/ dL) Final Unable to flag abnormal resu lt(s), please refer
to reference range(s) below:
Adult Reference Ranges for Aldosterone, LC/MS/MS:
Upright 8:00 - 10:00 am < or = 28 ng/dL
Upright 4:00 - 6:00 pm < or = 21 ng/dL
Supine 8:00 - 10:00 am 3 - 16 ng/dL Renin Activity 02/15/2024 14:44:00 1.70 0.25- 5.82 (ng/mL/h) Final Aldosterone / Renin ratio 02/15/2024 14:44:00 2.4 0.9-28.9 (Ratio) Final This test was developed and its analytical performance
characteristics have been determined by [facility]
[place], [place]. It has
not been cleared or approved by the U.S. Food and Drug
Administration. This assay has been validated pursuant
to the CLIA regulations and is used for clinical
purposes.

Test Performed at:
[facility]
[address] [facility]
[place] [address]
Des Oneill M.D., Ph.D.,Director of Laboratories Performing Location
--- OUTSIDE RECORDS SUMMARY | 2024-06-03 15:02 | External Medical Summary | Summary of Care ---
Author Name Unknown Organization [facility] Address [address] [place] [address] Phone [phone] Care Team Providers Care Honey Processor Name Role Phone Jason DAVILA MD, Wu Scott Primary Care Provider [phone] Reason for Visit * Reason Comments Outpatient Testing Encounter Details Date Type Department Care Team (Late st Contact Info) Description 02/17/2024 7:10 AM EDT Laboratory Laboratory [facility] [place] [address] [place] [phone] [place] [facility] [address] [place], [place] [address] Adenoma, adrenocortical, right Allergies No known active [...] Due COVID-19 Ad26 & Ad5, Sputnik V, [id number]-[id number]-Sqp, 2-Dose Series ([employer]) 10/15/2020,09/18/2020 HPV Vaccine, 4-Valent 12/29/2012 Pneumococcal Conjugate Vacci ne, 20-valent ([id number]) 11/02/2022 Pneumococcal Polysaccharide PPV23 (Pneumovax) 09/27/2017 Seasonal [...] 10:00 AM EDT Telemedicine Sleep Disorders Ctr [facility] [address] [facility] [place] [phone] Ivet Byrne DO [address] [place] [address] Health Maintenance Due Date Last Done Comments DISCUSS TOBACCO CESSATION (REFER TO SMARTSET #7884) 1990 Diabetic Foot Exam 2008 Hepatitis B [...] Volume 1075 mL 02/26/2024 7:34 PM EDT [facility] Cortisol, Free, 24 HR Urine 15.1 4.0 - 50.0 mcg/24 h 02/26/2024 7:34 PM EDT [facility] Comment: This test was developed and its analytical performance characteristics have been determined by [facility]. It has not been cleared or approved by FDA. This assay has been validated pursuant to the CLIA regulations and is used for clinical purposes. Creatinine, 24 Hour Urine 1.86 0.50 - 2.15 g/24 h 02/26/2024 7:34 PM EDT [facility] [place] Comment: Test performed by [facility] [address] [place] [address] Bulk Delivery Driver: Brooklyn Riley MD,PHD,ADELFO Test Reported by [facility], [facility], [address] [place], [place] Des Oneill M.D., Ph.D., Director of Laboratories , CLIA [id number] Urine Non-blood Collection / Unknown 02/17/2024 7:11 AM EDT 02/17/2024 7:11 AM EDT Wu Gomez III, MD LAB URINE ORDERABLE S [facility] [place] [address] [place] [address] documented in this encounter Visit Diagnoses Diagnosis Adenoma, adrenocortical, right documented in this encounter Care Teams Honey Processor Relationship Specialty Start Date End Date Wu Gomez III, MD [address] [facility] [place] [address] PCP - General Family Medicine 02/13/18 documented as of this encounter
--- OUTSIDE RECORDS SUMMARY | 2024-06-03 15:02 | External Medical Summary | Summary of Care ---
Author Name Unknown Organization [facility] Address [address] [place] [address] Phone [phone] Care Team Providers Care Medication Aide Name Role Phone Jason DAVILA MD, Wu Scott Primary Care Provider [phone] Reason for Visit * Reason Comments Outpatient Testing Encounter Details Date Type Department Care Team (Late st Contact Info) Description 02/15/2024 2:40 PM EDT Laboratory Laboratory [facility] [place] [address] [place] [phone] [place] [facility] [address] [facility] [place] [address] Adenoma, adrenocortical, right Allergies No known active [...] Due COVID-19 Ad26 & Ad5, Sputnik V, Pun-URNAF-Zsx, 2-Dose Series ([employer]) 10/15/2020,09/18/2020 HPV Vaccine, 4-Valent 12/29/2012 Pneumococcal Conjugate Vacci ne, 20-valent ([id number]) 11/02/2022 Pneumococcal Polysaccharide PPV23 (Pneumovax) 09/27/2017 Seasonal [...] 10:00 AM EDT Telemedicine Sleep Disorders Ctr [facility] [address] [facility] [place] [phone] I[place] Byr[place] DO [address] [facility] [place] [address] Pending Results Name Type Priority Associated Diagnoses Date /Time ALDOSTERONE/PLASMA RENIN ACTIVITY RATIO, LC/MS/MS Lab Routine Adenoma, adrenocortical, right 02/15/2024 2:44 PM EDT METANEPHRINES, FRACTIONATED, FREE, LCMSMS, PLASMA Lab Routine Adenoma, adrenocortical, right 02/15/2024 2:44 PM EDT DHEA-SULFATE Lab Routine Adenoma, adrenocortical, right 02/15/2024 2:44 PM EDT Health Maintenance Due Date Last Done Comments DISCUSS TOBACCO CESSATION (REFER TO SMARTSET #4061) 1990 Diabetic Foot Exam 2008 Hepatitis B [...] right documented in this encounter Care Teams Medication Aide Relationship Specialty Start Date End Date Wu Gomez III, MD [address] [place] [address] PCP - General Family Medicine 02/13/18 documented as of this encounter
--- OUTSIDE RECORDS SUMMARY | 2024-06-03 15:02 | External Medical Summary | Summary of Care ---
Author Name Unknown Organization [facility] Address [address] [place] [address] Phone [phone] Care Team Providers Care Manager Of Distribution Name Role Phone Jason DAVILA MD, John E Primary Care Provider [phone] Reason for Visit * Reason Onset Date Comments Referral 12/28/2023 GI Encounter Details Date Type Department Care Team (Late st Contact Info) Description 12/28/2023 Telephone Family Practice [facility] [address] [facility] [place] [address] Wu Gomez III, MD [address] [place] [address] Referral (GI) Allergies No known active allergiesdocumented as of this encounter (statuses as of 03/28/2024) Medications Medication Sig Dispensed Refills Start Date End Date Status Spacer/Aero-Holding Chambers DEVIIndications:Daphnie gallagher URI Use with inhaler. 1 Device 10/15/2017 [...] Active valACYclovir HCl 500 MG Oral Tablet (Valtrex)Indications :Genital herpes simplex, unspecified site Take 1 Tablet [...] Active Ondansetron 4 MG Oral Tablet Disintegrating (Zofran)Indications: Nausea and vomiting, unspecified vomiting type,Adverse effect of drug, initial encounter Place 1 Tablet on tongue every 8 hours as needed for Nausea or Vomiting. dissolve on tongue. 10 Tablet 1 10/22/2023 Active Albuterol Sulfate HFA 108 (90 Base) MCG/ACT Inhalation Aerosol SolutionIndications: Viral URI Inhale 2 Puffs by mouth every 4 hours as needed for Cough or Wheezing. 18 g 5 10/06/2020 4 Discontinue d(Medicatio n List Clean Up) Rizatriptan Benzoate 10 MG Oral Tablet Disintegrating (Maxalt-FIRE CAPTAIN MARINE)Indicati ons:Migraine variant Take 1 Tablet by mouth as needed for Migraine. at onset of headache, may repeat every 2 hours. No more than 3 pills in 24 hours 20 Tablet 3 02/02/2023 4 Discontinue d(Medicatio n List Clean Up) documented as of this encounter (statuses as of 03/28/2024) Active Problems Problem Noted Date Diagnosed Date [...] as of this encounter (statuses as of 03/28/2024) Resolved Problems Problem Noted Date Diagnosed Date [...] as of this encounter (statuses as of 03/28/2024) Immunizations Name Administration Dates Next Due COVID-19 Ad26 & Ad5, Sputnik V, Hry-LUBOD-Xtc, 2-Dose Series ([employer]) 10/15/2020,09/18/2020 HPV Vaccine, 4-Valent 12/29/2012 Pneumococcal Conjugate Vacci ne, 20-valent (Gmurscu77) 11/02/2022 Pneumococcal Polysaccharide PPV23 (Pneumovax) 09/27/2017 Seasonal [...] encounter Miscellaneous Notes * Telephone Encounter - Eli Mejia LPN - 12/28/2023 4:44 PM EDT Last Office Visit: 08/10/2023 (in office), 08/07/2020 (telemedicine) Next Office Visit: 01/02/2024 Can discuss at next office visit? * Telephone Encounter - Su Pena OSA - 12/28/2023 3:53 PM EDT Has the patient been seen for this problem? (Y/N)?: Yes If No, an appt needs to be scheduled before a referral will be placed (exception: proceed with referral request if referral request is for a yearly routine appointment with speciality) Patient Name: Sparkle Ochoa Patient Primary care provider: Wu Gomez III, MD Does this need to be an insurance referral (Y/N)?: Yes If Yes, does the insurance referral need to [facility]? Name of preferred specialist: [facility] provider Type of specialist: n/a Location of specialist: [facility] Phone #: n/a Specialist's Fax #: n/a Reason for visit: Nausea, Vomiting, Abdominal Pain Date of visit: pending referral documented in this encounter Plan of Treatment Upcoming Encounters Date Type Department Care Team (Late st Contact Info) Description 01/25/2025 10:00 AM EDT Telemedicine Sleep Disorders Ctr [facility] [address] [place] [phone] Ivet Byrne DO [address] [place] [address] Health Maintenance Due Date Last Done Comments DISCUSS TOBACCO CESSATION (REFER TO SMARTSET #8359) 1990 Diabetic Foot Exam 2008 Hepatitis B [...] Last Indicated Resolved Time C. difficile Rule-Out Comment:Rule out auto after 36 hours 12/13/2023 12/13/2023 12/30/2023 2:48 PM E DT documented as of this encounter Care Teams Manager Of Distribution Relationship Specialty Start Date End Date Wu Gomez III, MD [address] [facility] [place] [address] PCP - General Family Medicine 02/13/18 documented as of this encounter
[2024-06-03 15:30] LABS: Basophils # (auto) 0.05 K/uL (0.00-0.20); Basophils % (auto) 0.3 %; Eosinophils # (auto) 0.45 K/uL (0.00-0.50); Eosinophils % (auto) 2.7 %; Hematocrit (blood only) 39.5 % (37.0-47.0); Hemoglobin 13.2 g/dl (12.0-16.0); Immature Granulocytes # (auto) 0.09 K/uL (0.01-0.20); Immature Granulocytes % (auto) 0.5 %; Lymphocytes # (auto) 2.95 K/uL (1.20-3.40); Mean Corpuscular Hemoglobin 27.4 pg (25.0-34.0); Mean Corpuscular Hgb Conc 33.4 g/dL (32.0-36.0); Mean Corpuscular Volume 82.1 fL (80.0-100.0); Mean Platelet Volume 8.5 fL (9.4-12.4); Monocytes # (auto) 0.65 K/uL (0.11-0.59); Neutrophils # (auto) 12.22 K/uL (1.40-6.50); Neutrophils % (auto) 74.5 %; Platelet Count 358 K/uL (130-400); RDW Coefficient of Variation 14.2 % (11.5-14.5); RDW Standard Deviation 41.5 fL (36.4-46.3); Red Blood Count 4.81 M/uL (4.20-5.40); White Blood Count 16.41 K/ul (4.8-10.8)
[2024-06-03] MEDS: SODIUM CHLORIDE 0.9% 1,000 ML IV ONE (15:33)
--- NOTE | 2024-06-03 15:33 | Emergency Department Note ---
Impression & Plan Acute appendicitis, Abdominal pain, Leukocytosis ED Provider Note NAME: DERRELL CEDEÑO AGE: 34 SEX: F : 1990 ARRIVES VIA: Walk-In INFORMANT: Patient ED PROVIDER(S): Cody Little DO CHIEF COMPLAINT: Mid abdominal pain HPI: Patient is a 34-year-old female with a past medical history of cannabis abuse, intractable nausea vomiting, asthma, anxiety and morbid obesity who presents to the ER for epigastric/periumbilical abdominal pain that radiates to the right upper quadrant. This started last night and has been constant. She denies any nausea or vomiting. No dysuria, urgency, or frequency. Last menstrual period was about 3 weeks ago. No fevers. No abdominal surgeries. No other exacerbating or remitting factors. ADDITIONAL HISTORY OBTAINED: Per HPI Chronic Medical/Social Conditions Affecting Care: Per HPI PAST MEDICAL HISTORY:See Below PAST SURGICAL HISTORY:See Below FAMILY HISTORY:See Below SOCIAL HISTORY:See Below HOME MEDICATIONS:See Below ALLERGIES:See Below VITALS:See Below PHYSICAL EXAMINATION: GENERAL: Sitting up in bed, alert, well appearing, well nourished, no distress, non-toxic EYE EXAM: normal conjunctiva. OROPHARYNX: no exudate, no erythema, lips, buccal mucosa, and tongue normal and mucous membranes are moist NECK: supple, no nuchal rigidity, no adenopathy, non-tender LUNGS: Clear to auscultation. Normal chest wall mechanics HEART: no murmurs, S1 normal and S2 normal ABDOMEN: abdomen soft, tender to palpation in the right lower quadrant to the right mid and upper, normo-active bowel sounds, no masses, no rebound or guarding. UPPER EXTREMITIES: upper extremities are grossly normal. LOWER EXTREMITIES: No pitting edema. NEURO EXAM: Normal sensorium, cranial nerves II-XII grossly intact, normal speech, no gross weakness of arms, no gross weakness of legs. MEDICAL DECISION MAKING: Patient is a 34-year-old female who presents to the ER for above-stated complaint. IV was established blood work was obtained. Labs show a leukocytosis of 16,000. No significant anemia. BMP slightly low CO2 at 19. LFTs and bilirubin is unremarkable. Lipase normal. hCG negative. UA was clean. CT abdomen pelvis consistent with appendicitis. She was given IV fluids morphine Zofran and 2 g of cefoxitin. Case was discussed with Dr. Hector Dumont for further evaluation management treatment of her acute appendicitis. Consults/Care Managements Discussions: Per [facility] Triage Nursing notes reviewed. Limited review of prior medical records performed Vital Signs: reviewed and remarkable for HTN and tachy Differential diagnosis: Differential diagnoses includes but is not limited to gastritis, peptic ulcer disease, GERD, gallbladder disease, pancreatitis, small bowel obstruction, appendicitis, diverticulitis, hernia, urinary tract infection, torsion, perforation, trauma, infectious. ER treatment provided: See below Diagnostics interpreted by me include EKG and cardiac monitoring as listed below: -Cardiac Monitoring: An order was placed for continuous cardiac monitoring. The monitor shows a rate of 100 with sinus rhythm. -ECG: none -Laboratory studies:Interpreted by me as stated above in MDM and shown below. Imaging studies: Xrays: As interpreted by me:none CTs show: CT abdomen pelvis per my preliminary interpretation showed no obvious bowel obstruction CT Abdo pelvis per radiology showed appendicitis Procedures:none Critical Care: None Past Med/Surg History Problem List (Updated 06/03/24 @ 18:01 by Cody Little DO) Leukocytosis (Acute) Abdominal pain (Acute) Acute appendicitis (Acute) Change in bowel habits Cannabinoid hyperemesis syndrome Cannabis abuse Elevated blood pressure reading ALEX on CPAP Morbid obesity Tobacco abuse Intractable nausea and vomiting (Acute) Epigastric abdominal pain (Acute) Encounter for pre-operative examination Asthma (Chronic) Anxiety (Chronic) Dyspnea (Acute) Medical History Finger fracture, left current dx 2 weeks ago (approx wk of Jan 09 2024), splint. No sx intervention. History of COVID-19 approx 2022 Genital herpes current flare. Onset week of Jan 15 - starting to clear. Anxiety Bipolar disorder GERD (gastroesophageal reflux disease) Elevated blood pressure reading without diagnosis of hypertension consistenly over 130 for past month. Multiple ED visits November /Dec 2023 ([facility]). Following pcp. History of bronchitis frequent in 20's. Not a current problem anymore. Cannabinoid hyperemesis syndrome Morbid obesity with BMI of 50.0-59.9, adult PCOS (polycystic ovarian syndrome) Generalized psoriasis Diabetes mellitus, type 2 NIDDM Sleep apnea cpap Surgical History History of endoscopy hx 2020 : found some inflammation , unknown further details. History of tooth extraction History of wisdom tooth extraction Family History Other No family history of adverse response to anesthesia Social History Smoking Status: Current every day smoker Tobacco Type: Cigarettes Cigarettes Per Day: 1ppd/advised npo, hx vaping quit a few mon ago; Second Hand Exposure: No; Do You Dip or Chew Tobacco: No; Hx Alcohol Use: No Preferred Language: Occitan Communication Ability: Effective Access Registrar Required: No Beliefs That Will Affect Care: None Current Living Situation: Spouse Feels Safe at Home: Yes Assistive Devices: Brace/Splint/Immobilizer, CPAP and Glasses Allergies Allergies Allergy/AdvReac Type Severity Reaction Status Date / Time No Known Allergies Allergy Verified 01/24/24 10:28 Home Meds Home Medications Medication Instructions Recorded Confirmed metformin 1,000 mg tablet 1,000 mg PO QAM 01/15/21 01/24/24 valacyclovir 500 mg tablet 500 mg PO QAM 01/15/21 01/24/24 bupropion HCl 200 mg tablet,12 hr 200 mg PO QAM 12/24/23 01/24/24 sustained-release cyanocobalamin (vitamin B-12) 1,000 mcg PO QAM 12/24/23 01/24/24 1,000 mcg tablet (Vitamin B-12) drospirenone 3 mg-ethinyl 1 tab PO QAM 12/24/23 01/24/24 estradiol 0.03 mg tablet hydroxyzine HCl 25 mg tablet 50 mg PO TID nausea or anxiety 01/11/24 01/24/24 lamotrigine 200 mg tablet 250 mg PO QAM 01/11/24 01/24/24 (Lamictal) Medical Marijuana Card 1 dose UD PRN as directed 01/24/24 01/24/24 Previous Rx's Medication Instructions Recorded pantoprazole 40 mg tablet,delayed 40 mg PO BID #60 tabs 01/11/24 release (Protonix) peg 3350-electrolytes 236 240 ml PO ONCE #4,000 mL 02/02/24 gram-22.74 gram-6.74 gram-5.86 gram solution (Golytely) Results & Data (ED) Vital Signs Vital Signs - 24 hr 06/03/24 14:44 06/03/24 16:15 Temperature 36.8 C Temperature Source Temporal Artery Scan Pulse Rate 104 H Pulse Rate [Finger] 100 H Pulse Rhythm Regular Pulse Strength Normal Respiratory Rate 20 19 Respiratory Effort / Characteristics Non-Labored Spontaneous Respiratory Depth Normal Respiratory Pattern Regular Blood Pressure 181/99 H Blood Pressure [Right Arm] 146/94 H Blood Pressure Mean 126 Blood Pressure Mean [Right Arm] 111 Blood Pressure Position Sitting Blood Pressure Position [Right Arm] Semi-fowlers Pulse Oximetry 97 97 Oxygen Delivery Method Room Air Room Air Sepsis Recent Fever Within 48 Hours No Sepsis New/Unexplained Change in Mental Status No Sepsis Action Taken by Nursing No Action Required Laboratory Data 06/03/24 15:04 06/03/24 15:04 Lab Results 06/03/24 Range/Units 15:04 WBC 16.41 H (4.8-10.8) K/ul RBC 4.81 (4.20-5.40) M/uL Hgb 13.2 (12.0-16.0) g/dl Hct 39.5 (37.0-47.0) % MCV 82.1 (80.0-100.0) fL MCH 27.4 (25.0-34.0) pg MCHC 33.4 (32.0-36.0) g/dL RDW Std Deviation 41.5 (36.4-46.3) fL RDW Coeff of Tay 14.2 (11.5-14.5) % Plt Count 358 (130-400) K/uL MPV 8.5 L (9.4-12.4) fL Immature Gran % (Auto) 0.5 % Neut % (Auto) 74.5 % Lymph % (Auto) 18.0 % [place] % (Auto) 4.0 % Eos % (Auto) 2.7 % Baso % (Auto) 0.3 % Neut # (Auto) 12.22 H (1.40-6.50) K/uL Lymph # (Auto) 2.95 (1.20-3.40) K/uL [place] # (Auto) 0.65 H (0.11-0.59) K/uL Eos # (Auto) 0.45 (0.00-0.50) K/uL Baso # (Auto) 0.05 (0.00-0.20) K/uL Immature Gran # (Auto) 0.09 (0.01-0.20) K/uL Sodium 136 (136-145) mmol/L Potassium 4.3 (3.5-5.1) mmol/L Chloride 105 (98-107) mmol/L Carbon Dioxide 19 L (21-32) mmol/L Anion Gap 12 H (3-11) BUN 7 (6-23) mg/dl Creatinine 0.69 (0.6-1.2) mg/dl Est Cr Clr Drug Dosing 166.0 ml/min eGFR 116.72 BUN/Creatinine Ratio 10.1 (10-20) Glucose 100 H (70-99(Fasting)) mg/dl Calcium 9.1 (8.6-10.3) mg/dl Total Bilirubin 0.4 (0.2-1.0) mg/dl AST 14 (13-39) U/L ALT 11 (7-52) U/L Alkaline Phosphatase 73 (34-104) U/L Total Protein 7.6 (6.0-8.3) gm/dl Albumin 4.0 (3.4-5.0) gm/dl Globulin 3.6 (2.5-4.0) gm/dl Albumin/Globulin Ratio 1.1 (0.9-2) Lipase 11 (11-82) U/L HCG, Qual Negative (Negative) Urine Color Yellow Urine Appearance Clear (Clear) Urine pH 5.5 (4.5-7.5) Ur Specific [place] 1.019 (1.000-1.030) Urine Protein Negative (Negative) Urine Glucose (UA) Negative (Negative) Urine Ketones Negative (Negative) Urine Blood Negative (Negative) Urine Nitrite Negative (Negative) Urine Bilirubin Negative (Negative) Urine Urobilinogen Negative (Negative) Ur Leukocyte Esterase Trace H (Negative) Urine WBC (Auto) 0-5 (0-5) /hpf Urine RBC (Auto) 0-2 (0-2) /hpf U Hyaline Cast (Auto) 0-2 (0-2) /lpf U Epithel Cells (Auto) 0-2 (0-2) /hpf Urine Bacteria (Auto) None Seen (None Seen) Administered Medications Discontinued Medications Sodium Chloride (Nss) 1,000 mls @ 999 mls/hr IV .Q1H1M ONE Stop: 06/03/24 16:30 Last Infusion: 06/03/24 17:53 Dose: Infused Documented By: Admin: 06/03/24 15:33 Dose: 999 mls/hr Documented By: MARKY Cefoxitin Sodium (Mefoxin) 2,000 mg in 60 mls @ 100 mls/hr IV NOW STA Stop: 06/03/24 17:34 Last Infusion: 06/03/24 17:53 Dose: Infused Documented By: Admin: 06/03/24 17:14 Dose: 100 mls/hr Documented By: MARTA Ioversol (Optiray 320 100ml) 92 ml IV ONCE ONE Stop: 06/03/24 16:36 Last Admin: 06/03/24 16:35 Dose: 92 ml Documented By: GA Morphine Sulfate (Morphine Sulfate 2 Mg/Ml Carp) 2 mg IV NOW STA Stop: 06/03/24 17:00 Last Admin: 06/03/24 17:13 Dose: 2 mg Documented By: MARTA Ondansetron HCl (Ondansetron Inj 2 Mg/Ml 2 Ml Vial) 4 mg IV NOW STA Stop: 06/03/24 17:00 Last Admin: 06/03/24 17:14 Dose: 4 mg Documented By: MARTA Imaging Data Radiologist's Impression: Abdomen/Pelvis CT 06/03/24 15:30 EXAMINATION: CT of the abdomen and pelvis performed after the administration of IV contrast TECHNIQUE: Helical CT images from the lung bases through the symphysis pubis were obtained with contrast. Coronal and sagittal reformatted images were generated at a workstation for further assessment. Dose reduction techniques were achieved by using automatic exposure control and/or adjustment of mA and/or kV according to patient size and/or use of iterative reconstruction technique. COMPARISON: 12/23/2023 HISTORY: Abdominal pain FINDINGS: Lower chest: No consolidation. No pleural effusion or pneumothorax. Liver: No suspicious liver lesions. Portal veins appear patent. Gallbladder: No gallstones. No evidence of acute cholecystitis. Spleen: Normal size. Pancreas: No suspicious pancreatic lesions. The pancreatic duct is not dilated. Adrenal glands: No change in a 3.1 cm right adrenal nodule. Internal fat density is detected. Normal left adrenal gland. Kidneys: No hydronephrosis or obstructing renal stones. Bladder / Pelvic organs: Unremarkable. Bowel: No bowel obstruction. No abnormal bowel wall thickening. New dilation of the appendix is seen, measuring up to 10 mm in diameter in the coronal plane. Previously the appendix measures up to 5 mm. There is some minimal surrounding inflammatory fat stranding. Lymph nodes: No retroperitoneal, mesenteric, or pelvic lymphadenopathy. Peritoneum / Retroperitoneum: No free fluid or air within the abdomen. Vessels: No infrarenal aortic aneurysm. Bones and soft tissues: No suspicious lesion in the bones. IMPRESSION: New dilation of the appendix, with associated minimal surrounding inflammatory fat stranding, suggestive of appendicitis. No change in a 3.1 cm right adrenal nodule, with internal fat density detected, and may represent an adenoma, however further confirmation with a follow-up multiphasic CT or MRI adrenal protocol is recommended. Electronically signed by Donell Weston 06-03-2024 4:51 PM Discharge Plan Visit Data Chief Complaint: Abdominal Pain Stated Complaint: ABD PAIN ED Provider: Cody Little Discharge Problem: Acute appendicitis, Abdominal pain, Leukocytosis Forms Stand Alone Forms: [facility] [email or web address] Prescriptions Prescriptions: No Action peg 3350-electrolytes [Golytely] 236-22.74-6.74 -5.86 gram recon soln 240 ml PO ONCE Qty: 4000 0RF Rx Instructions: TAKE DIRECTED PER SPLIT DOSE INSTRUCTIONS hydroxyzine HCl 25 mg tablet 50 mg PO TID pantoprazole [Protonix] 40 mg tablet,delayed release (DR/EC) 40 mg PO BID Qty: 60 11RF valacyclovir 500 mg Tablet 500 mg PO QAM metformin 1,000 mg Tablet 1,000 mg PO QAM lamotrigine [Lamictal] 200 mg tablet 250 mg PO QAM bupropion HCl 200 mg tablet sustained-release 12 hr 200 mg PO QAM drospirenone-ethinyl estradiol 3-0.03 mg tablet 1 tab PO QAM cyanocobalamin (vitamin B-12) [Vitamin B-12] 1,000 mcg Tablet 1,000 mcg PO QAM Medical Marijuana Card 1 dose UD PRN (Reason: as directed) Patient Comments: expires in 3 days, do not want to renew. Referrals Referrals: Wu Gomez MD [Primary Care Provider] - Discharge Problem: Acute appendicitis Qualifiers: Acute appendicitis type: unspecified acute appendicitis type Qualified Code(s): K35.80 - Unspecified acute appendicitis Abdominal pain Qualifiers: Abdominal location: unspecified location Qualified Code(s): R10.9 - Unspecified abdominal pain Leukocytosis Qualifiers: Leukocytosis type: unspecified Qualified Code(s): D72.829 - Elevated white blood cell count, unspecified
[2024-06-03 15:39] LABS: Pregnancy Test, Serum Negative (Negative)
[2024-06-03 15:51] LABS: Appearance Urine Clear (Clear); Bacteria Urine Automated None Seen (None Seen); Bilirubin Urine Negative (Negative); Blood Urine Negative (Negative); Cast Urine Automated 0-2 /lpf (0-2); Color Urine Yellow; Epithelial Cell Urine Auto 0-2 /hpf (0-2); Glucose Urine UA Negative (Negative); Ketones Urine Negative (Negative); Leukocyte Esterase Urine Trace (Negative); Nitrite Urine Negative (Negative); Protein Urine Negative (Negative); RBC Urine Automated 0-2 /hpf (0-2); Specific Gravity Urine 1.019 (1.000-1.030); Urobilinogen Urine Negative (Negative); WBC Urine Automated 0-5 /hpf (0-5); pH Urine 5.5 (4.5-7.5)
[2024-06-03 16:19] LABS: Albumin Globulin Ratio 1.1 (0.9-2); BUN Creatinine Ratio 10.1 (10-20); Bilirubin,Total 0.4 mg/dl (0.2-1.0); Calcium 9.1 mg/dl (8.6-10.3); Globulin 3.6 gm/dl (2.5-4.0); Potassium 4.3 mmol/L (3.5-5.1); Total Protein 7.6 gm/dl (6.0-8.3)
[2024-06-03] MEDS: OPTIRAY 320 100ml IV ONE (16:35)
--- NOTE | 2024-06-03 16:51 | CT Scan Report ---
EXAMINATION: CT of the abdomen and pelvis performed after the administration of IV contrast TECHNIQUE: Helical CT images from the lung bases through the symphysis pubis were obtained with contrast. Coronal and sagittal reformatted images were generated at a workstation for further assessment. Dose reduction techniques were achieved by using automatic exposure control and/or adjustment of mA and/or kV according to patient size and/or use of iterative reconstruction technique. COMPARISON: 12/23/2023 HISTORY: Abdominal pain FINDINGS: Lower chest: No consolidation. No pleural effusion or pneumothorax. Liver: No suspicious liver lesions. Portal veins appear patent. Gallbladder: No gallstones. No evidence of acute cholecystitis. Spleen: Normal size. Pancreas: No suspicious pancreatic lesions. The pancreatic duct is not dilated. Adrenal glands: No change in a 3.1 cm right adrenal nodule. Internal fat density is detected. Normal left adrenal gland. Kidneys: No hydronephrosis or obstructing renal stones. Bladder / Pelvic organs: Unremarkable. Bowel: No bowel obstruction. No abnormal bowel wall thickening. New dilation of the appendix is seen, measuring up to 10 mm in diameter in the coronal plane. Previously the appendix measures up to 5 mm. There is some minimal surrounding inflammatory fat stranding. Lymph nodes: No retroperitoneal, mesenteric, or pelvic lymphadenopathy. Peritoneum / Retroperitoneum: No free fluid or air within the abdomen. Vessels: No infrarenal aortic aneurysm. Bones and soft tissues: No suspicious lesion in the bones. IMPRESSION: New dilation of the appendix, with associated minimal surrounding inflammatory fat stranding, suggestive of appendicitis. No change in a 3.1 cm right adrenal nodule, with internal fat density detected, and may represent an adenoma, however further confirmation with a follow-up multiphasic CT or MRI adrenal protocol is recommended. Electronically signed by Donell Weston 06-03-2024 4:51 PM
[2024-06-03] MEDS: MoRPHine SULFATE 2 MG/ML CARP IV STA (17:13)
[2024-06-03] MEDS: cefOXitin 2,000 MG/60 ML BAG IV STA (17:14)
[2024-06-03] MEDS: ONDANSETRON INJ 2 MG/ML 2 ML VIAL IV STA (17:14)
[2024-06-03] MEDS ORDERED: PROPOFOL IV EMULSION 10 MG/ML 20 ML VIAL IV ONE (18:08)
[2024-06-03] MEDS ORDERED: SUCCINYLCHOLINE CHLORIDE 20 MG/ML 10 ML VIAL IV ONE (18:08)
[2024-06-03] MEDS ORDERED: ROCURONIUM BROMIDE 10 MG/ML 5 ML VIAL IV ONE ×2 (18:08→19:43)
[2024-06-03] MEDS ORDERED: fentaNYL citrate PF 100 MCG/2 ML VIAL ONE ×3 (18:09→20:11)
--- NOTE | 2024-06-03 18:36 | Anesthesiology Consultation ---
Date of Service June 03, 2024 Assessment & Plan ASA ASA3 Proposed Anesthesia Anesthesia Type: General Risk / Benefits Reviewed With: PT / POA / Parent / Guardian, Accepts Plan and Informed Consent Obtained Additional Comments: rsi History Surgery Operation Date: 06/03/24 18:00 Proposed Procedures p Laparoscopic Appendectomy - Reji Suggs DO Height/Weight Height: 5 ft 4 in Weight: 146.8 kg Allergies Allergy/AdvReac Type Severity Reaction Status Date / Time No Known Allergies Allergy Verified 01/24/24 10:28 Medications Home Medications Medication Instructions Recorded Confirmed Last Taken metformin 1,000 mg tablet 1,000 mg PO QAM 01/15/21 01/24/24 12/23/23 valacyclovir 500 mg tablet 500 mg PO QAM 01/15/21 01/24/24 12/23/23 bupropion HCl 200 mg tablet,12 hr 200 mg PO QAM 12/24/23 01/24/24 12/23/23 sustained-release cyanocobalamin (vitamin B-12) 1,000 mcg PO QAM 12/24/23 01/24/24 12/23/23 1,000 mcg tablet (Vitamin B-12) drospirenone 3 mg-ethinyl 1 tab PO QAM 12/24/23 01/24/24 12/23/23 estradiol 0.03 mg tablet hydroxyzine HCl 25 mg tablet 50 mg PO TID nausea or anxiety 01/11/24 01/24/24 Unknown lamotrigine 200 mg tablet 250 mg PO QAM 01/11/24 01/24/24 Unknown (Lamictal) pantoprazole 40 mg tablet,delayed 40 mg PO BID #60 tabs 01/11/24 01/24/24 Unknown release (Protonix) Medical Marijuana Card 1 dose UD PRN as directed 01/24/24 01/24/24 Unknown peg 3350-electrolytes 236 240 ml PO ONCE #4,000 mL 02/02/24 Unknown gram-22.74 gram-6.74 gram-5.86 gram solution (Golytely) NPO Date Last Intake of Fluids: 06/03/24 Time Last Intake of Fluids: 13:30 Date Last Intake of Solids: 06/03/24 Time Last Intake of Solids: 05:00 Past Medical History Medical History Finger fracture, left current dx 2 weeks ago (approx wk of Jan 09 2024), splint. No sx intervention. History of COVID-19 approx 2022 Genital herpes current flare. Onset week of Jan 15 - starting to clear. Anxiety Bipolar disorder GERD (gastroesophageal reflux disease) Elevated blood pressure reading without diagnosis of hypertension consistenly over 130 for past month. Multiple ED visits NovemberDec 2023 ([facility] Following pcp. History of bronchitis frequent in . Not a current problem anymore. Cannabinoid hyperemesis syndrome Morbid obesity with BMI of 50.0-59.9, adult PCOS (polycystic ovarian syndrome) Generalized psoriasis Diabetes mellitus, type 2 NIDDM Sleep apnea cpap Exercise / Class Metabolic Activity II 4-5 Yardwork/Stairs/Walk up hill Past Family History Family History Other No family history of adverse response to anesthesia Past Surgical History Surgical History History of endoscopy hx 2020 : found some inflammation , unknown further details. History of tooth extraction History of wisdom tooth extraction Past Anesthesia History No Hx of Anesthesia Complications and No Family Hx of Anesthesia Complications History of PONV No Hx of PONV and No Hx of Motion Sickness Social History Smoking Status: Current every day smoker tobacco type: cigarettes Smoking cigarettes per day: 1ppd/advised npo, hx vaping quit a few mon ago Do You Dip or Chew Tobacco: No Hx Alcohol Use: No substance use type: does not use Substance Use Type Other:: medical marijuana card - expires in 3 days/no renewal planned. Last Used Substance: Days (ago) Last Used Substance Other:: 12/26/23 Review of Systems denies fever/cough/ colds/ chest pain/ SOB/ ALEX denies ALEX Physical Exam Vital Signs Last Vital Signs Temp 36.8 C 06/03/24 14:44 Pulse 100 H 06/03/24 16:15 Resp 19 06/03/24 16:15 BP 146/94 H 06/03/24 16:15 Pulse Ox 97 06/03/24 16:15 O2 Del Method Room Air 06/03/24 16:15 ENMT Mouth: no TMJ abnormality and no dentition abnormality Thyromental Distance: > or= 3.5 Finger Breadths Mallampati Class: IV Neck neck extension not limited Respiratory normal respiratory effort; no respiratory distress Auscultation: lungs clear to auscultation bilaterally Cardiovascular Rate/Rhythm: regular rate and regular rhythm Neurologic moves all extremities Psychiatric Orientation: alert and oriented x 3 Testing Laboratory Results 06/03/24 15:04 06/03/24 15:04 Urine Color Yellow 06/03/24 15:04 Urine Appearance Clear (Clear) 06/03/24 15:04 Urine pH 5.5 (4.5-7.5) 06/03/24 15:04 Ur Specific [place] 1.019 (1.000-1.030) 06/03/24 15:04 Urine Protein Negative (Negative) 06/03/24 15:04 Urine Glucose (UA) Negative (Negative) 06/03/24 15:04 Urine Ketones Negative (Negative) 06/03/24 15:04 Urine Nitrite Negative (Negative) 06/03/24 15:04 Ur Leukocyte Esterase Trace (Negative) H 06/03/24 15:04 Urine WBC (Auto) 0-5 /hpf (0-5) 06/03/24 15:04 Urine RBC (Auto) 0-2 /hpf (0-2) 06/03/24 15:04 U Hyaline Cast (Auto) 0-2 /lpf (0-2) 06/03/24 15:04 U Epithel Cells (Auto) 0-2 /hpf (0-2) 06/03/24 15:04 Urine Bacteria (Auto) None Seen (None Seen) 06/03/24 15:04
[2024-06-03] MEDS ORDERED: ePHEDrine sulfate 50 MG/ML AMP IV PRN (18:37)
[2024-06-03] MEDS ORDERED: PROMETHAZINE HCL 6.25 MG in SODIUM CHLORIDE 0.9% 50 ML IV PRN (18:37)
[2024-06-03] MEDS ORDERED: ATROPINE SULFATE 0.1 MG/ML 10ML SYR IV PRN (18:37)
[2024-06-03] MEDS ORDERED: HYDROmorphone INJ 1 MG/ML SYRINGE IV PRN (18:37)
--- NOTE | 2024-06-03 18:42 | History & Physical Report ---
Date of Service June 03, 2024 Assessment & Plan (1) Leukocytosis: (2) Acute appendicitis: Plan: Plan is for laparoscopic appendectomy. The details of the procedure have been explained to her including the risks and benefits. She expressed understanding of this explanation and all of her questions were answered. Consent has been obtained. NPO with ACU checks per anesthesia protocol IVF initiated Received abx in the ED less than 2 hours ago Antipyretics for fever Further plan pending operative findings and post operative status History of Present Illness Chief Complaint: abdominal pain Primary Care Provider: Wu Gomez MD 34F with PMHx of type II DM, ALEX, chronic cough and is an active cigarette smoke discontinued marijuana use, hyperemesis syndrome who presented to the ED with central abdominal pain that began 10pm last evening and migrated to the RLQ by the time of presentation this afternoon. In the ED she was found with mild tachycardia and leukocytosis to 16,000. CT A/P reveals a dilated appendix to 10mm with associated fat stranding suggestive appendicitis. Surgery was called for further management. Sparkle tells me she has not had pain similar to this in the past. She denies any other associated symptoms including F/C, chest pains, SOB, heart palpitations, dysuria, constipation diarrhea. Allergies Allergy/AdvReac Type Severity Reaction Status Date / Time No Known Allergies Allergy Verified 01/24/24 10:28 Home Medications Medication Instructions Recorded Confirmed Type metformin 1,000 mg tablet 1,000 mg PO QAM 01/15/21 01/24/24 History valacyclovir 500 mg tablet 500 mg PO QAM 01/15/21 01/24/24 History bupropion HCl 200 mg tablet,12 hr 200 mg PO QAM 12/24/23 01/24/24 History sustained-release cyanocobalamin (vitamin B-12) 1,000 mcg PO QAM 12/24/23 01/24/24 History 1,000 mcg tablet (Vitamin B-12) drospirenone 3 mg-ethinyl 1 tab PO QAM 12/24/23 01/24/24 History estradiol 0.03 mg tablet hydroxyzine HCl 25 mg tablet 50 mg PO TID nausea or anxiety 01/11/24 01/24/24 History lamotrigine 200 mg tablet 250 mg PO QAM 01/11/24 01/24/24 History (Lamictal) pantoprazole 40 mg tablet,delayed 40 mg PO BID #60 tabs 01/11/24 01/24/24 Rx release (Protonix) Medical Marijuana Card 1 dose UD PRN as directed 01/24/24 01/24/24 History peg 3350-electrolytes 236 240 ml PO ONCE #4,000 mL 02/02/24 Rx gram-22.74 gram-6.74 gram-5.86 gram solution (Golytely) Past Med/Surg History Problem List (Updated 06/03/24 @ 18:01 by Cody Little DO) Leukocytosis (Acute) Abdominal pain (Acute) Acute appendicitis (Acute) Change in bowel habits Cannabinoid hyperemesis syndrome Cannabis abuse Elevated blood pressure reading ALEX on CPAP Morbid obesity Tobacco abuse Intractable nausea and vomiting (Acute) Epigastric abdominal pain (Acute) Encounter for pre-operative examination Asthma (Chronic) Anxiety (Chronic) Dyspnea (Acute) Medical History Finger fracture, left current dx 2 weeks ago (approx wk of Jan 09 2024), splint. No sx intervention. History of COVID-19 approx 2022 Genital herpes current flare. Onset week of Jan 15 - starting to clear. Anxiety Bipolar disorder GERD (gastroesophageal reflux disease) Elevated blood pressure reading without diagnosis of hypertension consistenly over 130 for past month. Multiple ED visits NovemberDec 2023 ([facility] Following pcp. History of bronchitis frequent in 20's. Not a current problem anymore. Cannabinoid hyperemesis syndrome Morbid obesity with BMI of 50.0-59.9, adult PCOS (polycystic ovarian syndrome) Generalized psoriasis Diabetes mellitus, type 2 NIDDM Sleep apnea cpap Surgical History History of endoscopy hx 2020 : found some inflammation , unknown further details. History of tooth extraction History of wisdom tooth extraction Family History Other No family history of adverse response to anesthesia Social History Smoking Status: Current every day smoker Tobacco Type: Cigarettes Cigarettes Per Day: 1ppd/advised npo, hx vaping quit a few mon ago; Second Hand Exposure: No; Do You Dip or Chew Tobacco: No; Hx Alcohol Use: No Preferred Language: Swedish Communication Ability: Effective [employer] Required: No Beliefs That Will Affect Care: None Current Living Situation: Spouse Feels Safe at Home: Yes Assistive Devices: Brace/Splint/Immobilizer, CPAP and Glasses Review of Systems Review of Systems: as stated above Physical Exam Constitutional: + obese; not ill appearing, not in distr ess and not diaphoretic Respiratory: normal respiratory effort; no respiratory distress, no labored breathing and does not use accessory muscles Gastrointestinal (Abdomen): Percussion/Palpation: + abdomen tender (RLQ ) and abdomen soft; no guarding and abdomen not rigid Psychiatric: Orientation: alert, oriented x 3 and cooperative; not guarded Results & Data Results & Data Vital Signs (Past 12 Hours) Vital Signs Temp Pulse Pulse Resp BP BP Pulse Ox 06/03/24 16:15 100 H 19 146/94 H 97 06/03/24 14:44 36.8 C 104 H 20 181/99 H 97 O2 Del Method 06/03/24 16:15 Room Air 06/03/24 14:44 Room Air PG Care Time/CCT Total # of Minutes Spent Total Time Spent with Patient: Total time spent is greater than 50% in coordination of care (as documented) at patient's floor/unit and/or counseling patient: [place] [address] INT INP/OBS CARE MIN Patient Type New Diagnoses Leukocytosis D72.829 Leukocytosis type: unspecified Acute appendicitis K35.80 Acute appendicitis type: unspecified acute appendicitis type (1) Leukocytosis Leukocytosis type: unspecified Qualified Code(s): D72.829 - Elevated white blood cell count, unspecified (2) Acute appendicitis Acute appendicitis type: unspecified acute appendicitis type Qualified Code(s): K35.80 - Unspecified acute appendicitis
[2024-06-03] MEDS ORDERED: ONDANSETRON INJ 2 MG/ML 2 ML VIAL ONE (18:59)
[2024-06-03] MEDS ORDERED: DEXAMETHASONE SOD INJ 4 MG/ML VIAL ONE (18:59)
[2024-06-03] MEDS ORDERED: KETOROLAC 30 MG/ML VIAL ONE (19:04)
[2024-06-03] MEDS ORDERED: SUGAMMADEX SODIUM 200 MG/2 ML VIAL IV ONE ×2 (19:11→20:06)
[2024-06-03] MEDS: FLOSEAL HEMOSTATIC MATRIX 5ML TOP ONE (19:57)
[2024-06-03] MEDS: BUPIVACAINE/EPINEPHRINE 0.5% MPF 1:200,000 30 ML VIAL ONE (20:18)
[2024-06-03] MEDS ORDERED: oxyCODONE IR HOME PACK PO ONE (20:37)
--- NOTE | 2024-06-03 20:42 | Operative Report ---
PG Post Operative Report Pre & Post Diagnosis Operation Date: 06/03/24 18:00 Pre-Op Diagnosis: Acute appendicitis Post-Op Diagnosis: Acute appendicitis I identified the patient and participated in the time-out.: Yes Procedure Operation Date: 06/03/24 18:00 Actual Procedures p Laparoscopic Appendectomy(Not Applicable) - Reji Suggs DO Surgeon Reji Suggs DO Injection Press Operator EFE Anderson Estimated Blood Loss 1 Findings See Below early acute appendicitis with inflammation, thickening, enlarged appendix Specimens appendix Anesthesia Type General Complications None Indications acute appendicitis Description of Procedure Patient presents to the operating room and placed on the operating room table in supine position. She was connected to cardiac and oxygen monitoring, supplemental O2 was provided and SCDs were applied to bilateral lower extremities. The patient was administered general anesthesia was her airway was established. The abdomen was prepped and draped in typical sterile fashion and a timeout was conducted. Anesthetic was used to anesthetize the skin and subcutaneous tissues prior to making all incisions and incisions were made with an 11 or 15 bladed scalpel. Intra-abdominal access was gained at the infraumbilical midline using direct visualization as the patient's abdominal wall was too thick for Veress needle entry. Ultimately 12 mm trocar was used at this location. 2 additional 5 mm trocars were inserted at the left lower and right upper quadrants under direct visualization. The OR table was placed in Trendelenburg and left side down. The swollen, thickened and enlarged appendix was identified at the right lower quadrant and a purple loaded 45 mm Endo MAIK ligate and transect the appendix from the base of the cecum. The mesoappendix and periappendiceal artery were taken a single beatty load in the same 45 mm Endo MAIK stapler. The appendix was placed in an Endo Catch bag. The staple lines were inspected thoroughly for hemostasis. The area was gently irrigated and suctioned multiple times to be sure there was no active bleeding. Once this was confirmed, additional irrigant was suctioned away from the abdomen. The OR table was returned to the neutral position and additional irrigant was suctioned away from the pelvis right lower quadrant, paracolic gutter and right upper quadrant. The Endo Catch bag containing the appendix was then removed from the abdomen and the appendix was then placed in a label container for pathology and further analysis. Instruments were removed. The midline infraumbilical incision was closed using a Tim Hernandez suture device. CO2 insufflation was discontinued and excess pneumoperitoneum was evacuated from the remaining trocars. The remaining 2 trocars were then removed. Additional local anesthetic was injected at the incision sites. The incisions were closed with 4-0 Vicryl suture and then sealed with Dermabond. The patient tolerated the procedure well. She was awakened from anesthesia and transferred to recovery in stable condition. I attest to the content of the Intraoperative Record and any orders documented therein. Any exceptions are noted below.
[2024-06-03] MEDS: ONDANSETRON INJ 2 MG/ML 2 ML VIAL IV PRN (20:45)
[2024-06-03] MEDS: ACETAMINOPHEN 1,000 MG/100 ML VIAL IV STA (20:45)
[2024-06-03] MEDS ORDERED: ACETAMINOPHEN 1000 MG/100 ML IV IV ONE (20:47)
[2024-06-03] MEDS: fentaNYL citrate PF 100 MCG/2 ML VIAL IV PRN (20:50)
--- NOTE | 2024-06-03 21:03 | Anesthesiology Progress Note ---
Date of Service June 03, 2024 Anesthesia Post Procedure Vital Signs Vital Signs: Temp Pulse Pulse Resp BP BP Pulse Ox 06/03/24 16:15 100 H 19 146/94 H 97 06/03/24 14:44 36.8 C 104 H 20 181/99 H 97 O2 Del Method 06/03/24 16:15 Room Air 06/03/24 14:44 Room Air Pain Intensity Upper Abdomen: Pain Intensity: 5 Transfer of Care Handoff Completed per policy Notes Mental Status: alert / awake / arousable and participated in evaluation Patient Amnestic to Procedure: Yes Nausea / Vomiting: adequately controlled Pain: adequately controlled Airway Patency, RR, SpO2: stable & adequate BP & HR: stable & adequate Hydration State: stable & adequate Anesthetic Complications: no major complications apparent and Pt Satisfied with anesthetic care
[2024-06-03] MEDS ORDERED: ONDANSETRON INJ 2 MG/ML 2 ML VIAL IV PRN (22:54)
[2024-06-04] MEDS: HYDROmorphone INJ 0.5 MG/0.5 ML SYR IV PRN (00:13)
[2024-06-04 08:29] VITALS: BP 141/85; PULSE 89; RESP 18; TEMP 98.6; O2SAT 100
--- NOTE | 2024-06-04 08:35 | Surgery Progress Note ---
Date of Service June 04, 2024 Assessment & Plan (1) Acute appendicitis: Plan: POD 1 lap appy Post surgical gas pains abd/right shoulder may use heating pad /cool compresses for comfort as needed up OOB , ambulate in halls tolerating clears without n/v , MADISON VSS , afebrile expected post surgical discomfort expecting d/c after lunch if feeling well d/c instructions/ follow recs and return precautions reviewed Admission and Anticipated Discharge Date Admission Date: June 03, 2024 Subjective Pt reports post laparoscopic gas pains denies n/v, f/c, CP, sob voiding without difficu. Review of Systems Constitutional: no fever and no chills Respiratory: no dyspnea Cardiovascular: no chest pain Gastrointestinal: + abdominal pain; no nausea and no vomit ing Genitourinary: no dysuria Musculoskeletal: no muscle weakness Psychiatric: no confusion Physical Exam Constitutional: cooperative and comfortable; no acute distress Respiratory: normal respiratory effort; no respiratory distress Cardiovascular: Rate/Rhythm: regular rate Gastrointestinal (Abdomen): Inspection/Auscultation: + significant pannus Psychiatric: Orientation: alert and oriented x 3 Results & Data Vital Signs (Past 12 Hours) Vital Signs Temp Pulse Pulse Pulse Pulse Resp BP 06/04/24 08:26 98.6 F 89 18 141/85 H 06/04/24 03:55 97.5 F L 87 16 152/87 H 06/04/24 03:05 89 21 06/04/24 01:50 98.6 F 90 15 150/95 H 06/04/24 00:50 93 H 17 144/85 H 06/04/24 00:30 91 H 24 06/03/24 23:49 98.2 F 100 H 18 153/94 H 06/03/24 23:20 98.6 F 96 H 17 153/98 H 06/03/24 23:14 06/03/24 22:50 98.5 F 97 H 16 154/88 H 06/03/24 22:25 92 H 18 165/90 H 06/03/24 22:10 101 H 19 154/96 H 06/03/24 21:55 98 H 14 159/95 H 06/03/24 21:40 98 H 15 153/89 H 06/03/24 21:26 99.1 F 98 H 14 130/86 06/03/24 21:25 99.1 F 98 H 22 114/68 06/03/24 21:15 98 H 22 114/68 06/03/24 21:05 105 H 22 127/69 06/03/24 20:55 103 H 23 150/92 H 06/03/24 20:45 103 H 16 138/101 H 06/03/24 20:38 98.2 F 108 H 22 158/98 H Pulse Ox O2 Del Method O2 Flow Rate 06/04/24 08:26 100 Room Air 06/04/24 03:55 99 CPAP 06/04/24 03:05 97 1 06/04/24 01:50 96 CPAP 06/04/24 00:50 96 Room Air 06/04/24 00:30 97 1 06/03/24 23:49 94 Nasal Cannula 1 06/03/24 23:20 92 Nasal Cannula 1 06/03/24 23:14 Nasal Cannula 2 06/03/24 22:50 96 Nasal Cannula 2 06/03/24 22:25 94 Nasal Cannula 2 06/03/24 22:10 92 Room Air 06/03/24 21:55 92 Room Air 06/03/24 21:40 94 Room Air 06/03/24 21:26 94 Room Air 06/03/24 21:25 98 Oxymask 3 06/03/24 21:15 98 Oxymask 3 06/03/24 21:05 98 Oxymask 3 06/03/24 20:55 97 Oxymask 5 06/03/24 20:45 96 Oxymask 10 06/03/24 20:38 95 Oxymask 10 PG Care Time/CCT Total # of Minutes Spent Total Time Spent with Patient: Total time spent is greater than 50% in coordination of care (as documented) at patient's floor/unit and/or counseling patient: Coding Level of Care Code 16680 Post Operative Follow-Up Diagnoses Acute appendicitis K35.80 Acute appendicitis type: unspecified acute appendicitis type (1) Acute appendicitis Acute appendicitis type: unspecified acute appendicitis type Qualified Code(s): K35.80 - Unspecified acute appendicitis
[2024-06-04] MEDS: ACETAMINOPHEN 1,000 MG/100 ML VIAL IV PRN (09:01)
--- NOTE | 2024-06-04 11:50 | Communication Note ---
Date of Service: June 04, 2024 Pt. instructed to resume metformin in 48 hours. D/C paper have already joseph finalized so this was verbally instructed to patient and she expresssed her u nderstanding. I also contacted RN who will write this on the discharge paperwork.
--- NOTE | 2024-06-05 12:48 | Discharge Summary ---
Date of Service June 05, 2024 Admission HPI Per Admitting Provider 34F with PMHx of type II DM, ALEX, chronic cough and is an active cigarette smoke discontinued marijuana use, hyperemesis syndrome who presented to the ED with central abdominal pain that began 10pm last evening and migrated to the RLQ by the time of presentation this afternoon. In the ED she was found with mild tachycardia and leukocytosis to 16,000. CT A/P reveals a dilated appendix to 10mm with associated fat stranding suggestive appendicitis. Surgery was called for further management. Sparkle tells me she has not had pain similar to this in the past. She denies any other associated symptoms including F/C, chest pains, SOB, heart palpitations, dysuria, constipation diarrhea. Principal Diagnosis acute appendicititis Discharge Exam Constitutional cooperative and comfortable; no acute distress Respiratory normal respiratory effort; no respiratory distress Cardiovascular Rate/Rhythm: regular rate Gastrointestinal (Abdomen) Inspection/Auscultation: + significant pannus Psychiatric Orientation: alert and oriented x 3 Discharge Data Allergies Allergy/AdvReac Type Severity Reaction Status Date / Time No Known Allergies Allergy Verified 01/24/24 10:28 Consultations 06/03/24 16:59 ED Decision to Admit Stat Procedures Performed Operation Date: 06/03/24 18:00 Actual Procedures p Laparoscopic Appendectomy(Not Applicable) - Reji Suggs, Ordered Studies 06/03/24 15:30 CT Abd and Pelvis [CT abd pelvis IV con only] Stat Hospital Course (1) Acute appendicitis: This is a 34 yo female who presented to the [facility] ED on 06/03/24 with abdominal pain. Workup in the ED showed a WBC of [address] a/p concerning for acute appendicitis (see HPI for full details). Patient made NPO with IVF and booked for the OR. On 06/03/24 the patient went to the OR with Dr. Suggs for a laparoscopic appendectomy. The patient tolerated the procedure well, see operative report for full details. Post operatively the patient's diet was advanced, pain managed on prn meds, and incisions clean/dry/intact. On POD#1 the patient was deemed stable for discharge to home. The patient was given discharge instructions, follow up recommendations, return precautions and a prescription for pain medication. Total Time Total Time Spent Total Time Spent (In Minutes): 5 Discharge Plan Discharge Items Patient Disposition: Home - Self-Care Reason For Visit: APPY Discharge Diagnosis: Appendicitis Activity: Per Instructions section Lifting: No more than 10 pounds Bathing Comment: you can shower, No soaking in pools /baths for 2 weeks Exercise/Sports: Wait until after follow-up appointment Driving/Machine Use: no driving if taking narcotic pain medication Non-emergency contact: Surgeon Call non-emergency contact if: you have any medication questions, your symptoms worsen, your temperature is above 101.5, your wound has increased redness, your wound has increased drainage and your wound pain has increased Follow-up/Referrals: Wu Gomez MD [Primary Care Provider] - Reji Suggs DO [Physician] - 06/26/24 11:15 am (Call office for appointment in 1-2 weeks) Diet: Carb Consistent or DM2 Addtl Attending Provider Instructions: You may shower in 3 days with regular soap and water. No tub baths Do not lift anything heavier than 10 pounds until cleared to do so by your surgeon Do not drive until cleared to do so by your surgeon Walk daily You may have a liquid diet until you have return of bowel function (you have a bowel movement or passing gas). Once you have return of bowel function he may slowly advance to regular diet Call your surgeon's office if you have any uncontrolled pain, unremitting nausea or vomiting, or any fevers greater than 100.5 Call your surgeons office if you have any additional questions or concerns. Pending Studies at Discharge: Yes Studies:: surgical pathology Stand-Alone Forms: My [facility], Work/School Release Medications and DC Order Prescriptions: New acetaminophen 325 mg capsule 650 mg PO Q6H PRN (Reason: fever or pain) Qty: 30 0RF oxycodone 5 mg tablet 5 - 10 mg PO .[id number] MDD no more than 6 tabs in 24hours PRN (Reason: pain) Qty: 15 0RF Continued peg 3350-electrolytes [Golytely] 236-22.74-6.74 -5.86 gram recon soln 240 ml PO ONCE Qty: 4000 0RF Rx Instructions: TAKE DIRECTED PER SPLIT DOSE INSTRUCTIONS hydroxyzine HCl 25 mg tablet 50 mg PO TID pantoprazole [Protonix] 40 mg tablet,delayed release (DR/EC) 40 mg PO BID Qty: 60 11RF valacyclovir 500 mg Tablet 500 mg PO QAM metformin 1,000 mg Tablet 1,000 mg PO QAM lamotrigine [Lamictal] 200 mg tablet 250 mg PO QAM bupropion HCl 200 mg tablet sustained-release 12 hr 200 mg PO QAM drospirenone-ethinyl estradiol 3-0.03 mg tablet 1 tab PO QAM cyanocobalamin (vitamin B-12) [Vitamin B-12] 1,000 mcg Tablet 1,000 mcg PO QAM Medical Marijuana Card 1 dose UD PRN (Reason: as directed) Patient Comments: expires in 3 days, do not want to renew. Discharge Orders: Discharge Order (Routine); Ordered 06/04/24 Ordered By: Regina Anand/Other Patient Handouts: Appendectomy Lap Dc Admission Data Admit Date/Time: 06/03/24 22:03 Attending Provider: Reji Suggs Admit Provider: Reji Suggs Primary Care Provider: Wu Gomez Other Providers: Reji Suggs Other Interventions: Discharge Summary Assessment (RN) Last Done: 06/04/24 10:42 Coding Level of Care Code 37958 IN/OBS DISCH 30 MIN/LESS Diagnoses Acute appendicitis K35.80 Acute appendicitis type: unspecified acute appendicitis type
== END 2024-06-04 12:43 | disposition home or self-care (01) ==
LOC: ED 14:38 → 3N 18:13 → OR 18:13 → 3N 22:03 → INTOOBSV 22:03 → 3N 22:57